=== PATIENT | female | born 1930 ===

== ENCOUNTER 2020-09-09 04:36 | Inpatient (IN) | payer MEDICARE ==
[2020-09-09] MEDS ORDERED: MELATONIN 5 MG TAB PO PRN (05:12)
[2020-09-09] MEDS: traZODone 50 MG TAB PO SCH (21:19)
[2020-09-09 23:42] LABS: Eosinophils # (Auto) 0.3 K/mm3 (0.0-0.4); Eosinophils % (Auto) 9.3 % (0.0-4.3); Hemoglobin 11.6 gm/dl (10.1-14.3); Lymphocytes # (Auto) 1.3 K/mm3 (1.2-5.4); Lymphocytes % (Auto) 38.5 % (13.4-35.0); Mean Corpuscular HGB Conc 33 % (30-34); Mean Corpuscular Volume 84 fl (79-97); Monocytes # (Auto) 0.4 K/mm3 (0.0-0.8); Platelet Count 146 K/mm3 (140-440); Red Blood Count 4.16 M/mm3 (3.65-5.03); Red Cell Distribution Width 14.6 % (13.2-15.2)
[2020-09-10 05:04] LABS: Albumin 3.7 g/dL (3.9-5); Calcium 9.1 mg/dL (8.4-10.2); Chol/HDL Ratio 2.7 %
--- NOTE | 2020-09-10 09:36 | Consultation ---
History of Present Illness - Reason for Consult Consult date: 09/10/20 Reason for consult: Dementia with Behaviral Disturbance - History of Present Psychiatric Illness Per Admission Note: Friend brought pt to ED. Pt is depressed, pt live at home by herself, pt state she is going to walk into traffic. Anai Hernandez is an 89y/o female patient who was admitted for stating she would walk in traffic. During my interview with the patient, she is awake. She is calm and cooperative. The patient is pleasant. The patient states "I said something I shouldn't have said but I bet I know better now." When asking her why would she make a statement like that she says "I don't know. I guess at the time that's how I felt." When asking the patient was she suicidal, she states "not anymore." The patient denies homicidal thoughts. She also denies hallucinations of any kind. Mrs. Hernandez says she lives in [place] and states she's ready to go back with her family. She denies any illicit drug use, alcohol or nicotine. The patient denies any psychiatric history or being on any psych meds. Advised the patient that we needed to monitor her to make sure she would be safe upon discharge. PAST PSYCHIATRIC HISTORY: Diagnoses: Denies Suicide attempts or Self-harm behavior: Denies Prior psychiatric hospitalizations: Denies Substance Abuse history: Denies Previous psychiatric medications tried: Denies Outpatient treatment: Denies PAST MEDICAL HISTORY: None reported Family Psychiatric History: None reported or documented SOCIAL HISTORY Marital Status: Living Arrangements: "by myself" Employment Status: Retired Access to guns/weapons: Denies Education: high school History of Abuse: Denies Legal History: Denies REVIEW OF SYSTEMS Constitutional: Negative for weight loss ENT: Negative for stridor Respiratory: Negative for cough or hemoptysis All other systems reviewed and are negative MENTAL STATUS EXAMINATION General Appearance and Behavior: Age appropriate, good hygiene, not wearing appropriate clothes, good eye contact, calm and cooperative Cooperation: Participating, uncooperative at times Psychomotor Behavior: Psychomotor normal Mood: "okay" Affect and affective range: Congruent with stated mood Thought Process: goal oriented Speech: Normal tone and pace Thought Content Suicidal Ideation: Denies Homicidal Ideation: Denies Hallucinations: unclear Delusions: None elicited Impulse Control: Limited Insight and Judgment: limited insight and judgment Memory: Limited Attention: Divided attention impaired Orientation: A/o x 3 Assessment and Plan (1) Dementia with Behavioral Disturbance Current Visit: Yes Status: Acute Treatment Plan Patient admitted for inpatient psychiatric evaluation, medication adjustment and close monitoring The patient's behavior, mood, sleep and appetite will be closely monitored. Patient enrolled in individual and group therapeutic sessions and encouraged to attend. Patient provided with a safe and structured environment. Patient's physical health needs will be addressed by the Hospitalist. Hospitalist Consulted Labs including CBC, CMP, Lipid profile and Hemoglobin A1C levels ordered for baseline reference Social Assessment will be completed and the Manager Integration will work with patient and family to ensure a suitable and safe disposition Medication adjustment will be made as clinically indicated Start Zoloft 25mg po daily Trazodone 50mg po qhs Usual Wellness Scientologist/Preservation: - Start Trazodone 50 mg po QHS & 50 mg po QHS PRN between 10 PM & 2 AM for insomnia - Start Melatonin 5 mg po QHS to promote circadian rhythm - Start [place]-3 for brain health, reduce impulsivity, and as adjunctive treatment for mood disorder, continue upon discharge given overall benefits. - Start B1 prophylaxis with 200 mg po for 5 days The patient agreed on the treatment plan, understood the risk, benefit, alternative treatment, potential consequence of no treatment, and gave informed consent. Initial Certification I certify that the inpatient psychiatric services are required for treatment that could reasonably be expected to improve the patient's condition Estimated days: 5 Post hospital care: primary care provider, psychiatric provider Case staffed with Dr. Garvin. Medications and Allergies Allergies Allergy/AdvReac Type Severity Reaction Status Date / Time amoxicillin Allergy Unknown Verified 09/09/20 04:57 aspirin Allergy Unknown Verified 09/09/20 04:57 codeine Allergy Unknown Verified 09/09/20 04:57 Sulfa (Sulfonamide Allergy Unknown Verified 09/09/20 04:57 Antibiotics) Home Medications Medication Instructions Recorded Confirmed Last Taken Type Cholecalciferol (Vitamin D3) 1,000 unit PO QDAY 09/09/20 09/09/20 Unknown History [Vitamin D3 2,000 UNIT CAP] Multivitamin [Multiple Vitamins] 1 each PO DAILY 09/09/20 09/09/20 Unknown History [place]-3 Fatty Acids/Fish Oil [Cvs 1 each PO DAILY 09/09/20 09/09/20 Unknown History Fish Oil 1,200 mg Softgel] Simvastatin 10 mg PO HS 09/09/20 09/09/20 Unknown History traMADoL [Ultram] 50 mg PO Q6HR PRN 09/09/20 09/09/20 Unknown History Active Meds: Active Medications Melatonin (Melatonin 5 Mg Tab) 5 mg PO QHS PRN PRN Reason: Sleep Trazodone HCl (Trazodone 50 Mg Tab) 50 mg PO QHS [facility] Last Admin: 09/09/20 21:19 Dose: 50 mg Documented by: Mental Status Exam - Vital signs Last Vital Signs Temp 98.5 F 09/09/20 19:41 Pulse 78 09/09/20 19:41 Resp 18 09/09/20 19:41 BP 139/74 09/09/20 19:41 Pulse Ox 99 09/09/20 19:41 Results Result Diagrams: 09/09/20 22:35 09/09/20 22:35 Abnormal lab results 09/09/20 09/09/20 09/09/20 Range/Units 16:11 22:35 22:35 WBC 3.4 L (4.5-11.0) K/mm3 Lymph % (Auto) 38.5 H (13.4-35.0) % [place] % (Auto) 11.0 H (0.0-7.3) % Eos % (Auto) 9.3 H (0.0-4.3) % Seg Neutrophils # 1.4 L (1.8-7.7) K/mm3 POC Glucose 124 H (70-105) mg/dL Total Protein 6.2 L (6.3-8.2) g/dL Albumin 3.7 L (3.9-5) g/dL HDL Cholesterol 67 H (40-59) mg/dL All other labs normal.
[2020-09-10] MEDS ORDERED: traMADol 50 MG TAB PO PRN (09:46)
--- NOTE | 2020-09-10 09:50 | History and Physical Report ---
GP History & Physical - History of Present Illness Date of admission: 09/09/20 Date of Examination: 09/10/20 Reason for Admission: Danger to self History of Present Illness: Per Admission Note: Friend brought pt to ED. Pt is depressed, pt live at home by herself, pt state she is going to walk into traffic. Anai Rodriguez is an 89y/o female patient who was admitted for stating she would walk in traffic. During my interview with the patient, she is awake. She is calm and cooperative. The patient is pleasant. The patient states "I said something I shouldn't have said but I bet I know better now." When asking her why would she make a statement like that she says "I don't know. I guess at the time that's how I felt." When asking the patient was she suicidal, she states "not anymore." The patient denies homicidal thoughts. She also denies hallucinations of any kind. Mrs. Rodriguez says she lives in [place] and states she's ready to go back with her family. She denies any illicit drug use, alcohol or nicotine. The patient denies any psychiatric history or being on any psych meds. Advised the patient that we needed to monitor her to make sure she would be safe upon discharge. PAST PSYCHIATRIC HISTORY: Diagnoses: Denies Suicide attempts or Self-harm behavior: Denies Prior psychiatric hospitalizations: Denies Substance Abuse history: Denies Previous psychiatric medications tried: Denies Outpatient treatment: Denies PAST MEDICAL HISTORY: None reported Family Psychiatric History: None reported or documented SOCIAL HISTORY Marital Status: Living Arrangements: "by myself" Employment Status: Retired Access to guns/weapons: Denies Education: high school History of Abuse: Denies Legal History: Denies REVIEW OF SYSTEMS Constitutional: Negative for weight loss ENT: Negative for stridor Respiratory: Negative for cough or hemoptysis All other systems reviewed and are negative MENTAL STATUS EXAMINATION General Appearance and Behavior: Age appropriate, good hygiene, not wearing appropriate clothes, good eye contact, calm and cooperative Cooperation: Participating, uncooperative at times Psychomotor Behavior: Psychomotor normal Mood: "okay" Affect and affective range: Congruent with stated mood Thought Process: goal oriented Speech: Normal tone and pace Thought Content Suicidal Ideation: Denies Homicidal Ideation: Denies Hallucinations: unclear Delusions: None elicited Impulse Control: Limited Insight and Judgment: limited insight and judgment Memory: Limited Attention: Divided attention impaired Orientation: A/o x 3 Assessment and Plan (1) Dementia with Behavioral Disturbance Current Visit: Yes Status: Acute Treatment Plan Patient admitted for inpatient psychiatric evaluation, medication adjustment and close monitoring The patient's behavior, mood, sleep and appetite will be closely monitored. Patient enrolled in individual and group therapeutic sessions and encouraged to attend. Patient provided with a safe and structured environment. Patient's physical health needs will be addressed by the Hospitalist. Hospitalist Consulted Labs including CBC, CMP, Lipid profile and Hemoglobin A1C levels ordered for baseline reference Social Assessment will be completed and the Director Of Income Tax will work with patient and family to ensure a suitable and safe disposition Medication adjustment will be made as clinically indicated Start Zoloft 25mg po daily Trazodone 50mg po qhs Usual Wellness Anabaptist/Preservation: - Start Trazodone 50 mg po QHS & 50 mg po QHS PRN between 10 PM & 2 AM for insomnia - Start Melatonin 5 mg po QHS to promote circadian rhythm - Start [place]-3 for brain health, reduce impulsivity, and as adjunctive treatment for mood disorder, continue upon discharge given overall benefits. - Start B1 prophylaxis with 200 mg po for 5 days The patient agreed on the treatment plan, understood the risk, benefit, alternative treatment, potential consequence of no treatment, and gave informed consent. Initial Certification I certify that the inpatient psychiatric services are required for treatment that could reasonably be expected to improve the patient's condition Estimated days: 5 Post hospital care: primary care provider, psychiatric provider Case staffed with Dr. Garvin. Legal Status: Voluntary Reaction to Hospitalization: Accepting Medications and Allergies Allergies Allergy/AdvReac Type Severity Reaction Status Date / Time amoxicillin Allergy Unknown Verified 09/09/20 04:57 aspirin Allergy Unknown Verified 09/09/20 04:57 codeine Allergy Unknown Verified 09/09/20 04:57 Sulfa (Sulfonamide Allergy Unknown Verified 09/09/20 04:57 Antibiotics) Home Medications Medication Instructions Recorded Confirmed Last Taken Type Cholecalciferol (Vitamin D3) 1,000 unit PO QDAY 09/09/20 09/09/20 Unknown History [Vitamin D3 2,000 UNIT CAP] Multivitamin [Multiple Vitamins] 1 each PO DAILY 09/09/20 09/09/20 Unknown History [place]-3 Fatty Acids/Fish Oil [Cvs 1 each PO DAILY 09/09/20 09/09/20 Unknown Hi story Fish Oil 1,200 mg Softgel] Simvastatin 10 mg PO HS 09/09/20 09/09/20 Unknown History traMADoL [Ultram] 50 mg PO Q6HR PRN 09/09/20 09/09/20 Unknown History Active Meds: Active Medications Melatonin (Melatonin 5 Mg Tab) 5 mg PO QHS PRN PRN Reason: Sleep Miscellaneous Medication (Cholecalciferol (Vitamin D3) [Vitamin D3 2,000 Unit Cap]) 1,000 unit PO QDAY DLEFINO Miscellaneous Medication (Multivitamin [Multiple Vitamins]) 1 each PO DAILY DELFINO Miscellaneous Medication ([place]-3 Fatty Acids/Fish Oil [Cvs Fish Oil 1,200 Mg Softgel]) 1 each PO DAILY DELFINO Miscellaneous Medication (Simvastatin [Simvastatin]) 10 mg PO HS [facility] Sertraline HCl (Sertraline 25 Mg Tab) 25 mg PO QDAY [place]FINO Tramadol HCl (Tramadol 50 Mg Tab) 50 mg PO Q6HR PRN PRN Reason: PAIN Trazodone HCl (Trazodone 50 Mg Tab) 50 mg PO QHS [facility] Last Admin: 09/09/20 21:19 Dose: 50 mg Documented by: Results - Results Labs/Vitals: Laboratory Last Values WBC 3.4 K/mm3 (4.5-11.0) L 09/09/20 22:35 RBC 4.16 M/mm3 (3.65-5.03) 09/09/20 22:35 Hgb 11.6 gm/dl (10.1-14.3) 09/09/20 22:35 Hct 35.0 % (30.3-42.9) 09/09/20 22:35 MCV 84 fl (79-97) 09/09/20 22:35 MCH 28 pg (28-32) 09/09/20 22:35 MCHC 33 % (30-34) 09/09/20 22:35 RDW 14.6 % (13.2-15.2) 09/09/20 22:35 Plt Count 146 K/mm3 (140-440) 09/09/20 22:35 Lymph % (Auto) 38.5 % (13.4-35.0) H 09/09/20 22:35 [place] % (Auto) 11.0 % (0.0-7.3) H 09/09/20 22:35 Eos % (Auto) 9.3 % (0.0-4.3) H 09/09/20 22:35 Baso % (Auto) 1.0 % (0.0-1.8) 09/09/20 22:35 Lymph # (Auto) 1.3 K/mm3 (1.2-5.4) 09/09/20 22:35 [place] # (Auto) 0.4 K/mm3 (0.0-0.8) 09/09/20 22:35 Eos # (Auto) 0.3 K/mm3 (0.0-0.4) 09/09/20 22:35 Baso # (Auto) 0.0 K/mm3 (0.0-0.1) 09/09/20 22:35 Seg Neutrophils % 40.2 % (40.0-70.0) 09/09/20 22:35 Seg Neutrophils # 1.4 K/mm3 (1.8-7.7) L 09/09/20 22:35 Sodium 137 mmol/L (137-145) 09/09/20 22:35 Potassium 3.9 mmol/L (3.6-5.0) 09/09/20 22:35 Chloride 101.5 mmol/L (98-107) 09/09/20 22:35 Carbon Dioxide 25 mmol/L (22-30) 09/09/20 22:35 Anion Gap 14 mmol/L 09/09/20 22:35 BUN 17 mg/dL (7-17) 09/09/20 22:35 Creatinine 0.9 mg/dL (0.6-1.2) 09/09/20 22:35 Estimated GFR 59 ml/min 09/09/20 22:35 BUN/Creatinine Ratio 19 % 09/09/20 22:35 Glucose 81 mg/dL (65-100) 09/09/20 22:35 POC Glucose 124 mg/dL (70-105) H 09/09/20 16:11 Hemoglobin A1c 5.4 % (4-6) 09/09/20 22:35 Calcium 9.1 mg/dL (8.4-10.2) 09/09/20 22:35 Total Bilirubin 0.20 mg/dL (0.1-1.2) 09/09/20 22:35 AST 17 units/L (5-40) 09/09/20 22:35 ALT 8 units/L (7-56) 09/09/20 22:35 Alkaline Phosphatase 49 units/L (35-129) 09/09/20 22:35 Total Protein 6.2 g/dL (6.3-8.2) L 09/09/20 22:35 Albumin 3.7 g/dL (3.9-5) L 09/09/20 22:35 Albumin/Globulin Ratio 1.5 % 09/09/20 22:35 Triglycerides 41 mg/dL (2-149) 09/09/20 22:35 Cholesterol 181 mg/dL (50-199) 09/09/20 22:35 LDL Cholesterol Direct 106 mg/dL (50-130) 09/09/20 22:35 HDL Cholesterol 67 mg/dL (40-59) H 09/09/20 22:35 Cholesterol/HDL Ratio 2.70 % 09/09/20 22:35 TSH 3.530 mlU/mL (0.270-4.200) 09/09/20 22:35 Last Vital Signs Temp 98.5 F 09/09/20 19:41 Pulse 78 09/09/20 19:41 Resp 18 09/09/20 19:41 BP 139/74 09/09/20 19:41 Pulse Ox 99 09/09/20 19:41 Physical Examination - Constitutional Vitals: Vital Signs Temp Pulse Resp BP Pulse Ox 98.5 F 78 18 139/74 99 09/09/20 19:41 09/09/20 19:41 09/09/20 19:41 09/09/20 19:41 09/09/20 19:41 Temperature -Last 24 Hours Temperature 98.5 F Temperature 98.0 F Mental Status Exam - Vital signs Last Vital Signs Temp 98.5 F 09/09/20 19:41 Pulse 78 09/09/20 19:41 Resp 18 09/09/20 19:41 BP 139/74 09/09/20 19:41 Pulse Ox 99 09/09/20 19:41 Physician Certification - Certification Statement Physician Certification Statement: This is an acknowledgement statement that ANAI RODRIGUEZ is a 89 year old F who requires inpatient psychiatric admission for treatment which could reasonably be expected to improve the patient's condition for Estimated period of time patient will need to remain in the hospital: [ ] Plan for post-hospital care: [ ]
[2020-09-10] MEDS: MULTIVITAMINS,THER W-MINERALS TAB PO SCH (11:47)
[2020-09-10] MEDS: OMEGA-3 FATTY ACIDS/FISH OIL 1 GRAM CAP PO SCH (11:48)
[2020-09-10] MEDS: CHOLECALCIFEROL (VIT D3) 1000 UNIT (25 mcg) TAB PO SCH (11:48)
[2020-09-10] MEDS: SERTRALINE 25 MG TAB PO SCH (11:48)
--- NOTE | 2020-09-10 12:12 | Event Note ---
Date: 09/10/20 Spoke with the patient's niece, Angie. She says they've seen medication bottle of "zyprexa." She says but the patient hasn't told them about any psychiatric issues. She says they depend on her for this information. She says they are unable to find out who the doctor is who prescribed it. She says the information was not on the bottle to see and she is not sure why it was prescribed. She says her aunt lives alone in [place]. She says her aunt is very paranoid. She says she calls at 4 in the morning or whatever time saying someone is in her house or someone has changed the locks. She also says Mrs. Hernandez does have some depression and at times appear to have feelings of hopelessness. She says her aunt doesn't want people to feel she is incapable because she doesn't want to go into a [place] [facility] facility and likes being in her house. Discussed zoloft with Angie and starting the patient back on her zyprexa. She says her aunt may also be pocketing her medications. She says her aunt is very independent and has been for a long time.
--- NOTE | 2020-09-10 13:59 | Consultation ---
History of Present Illness - Reason for Consult Consult date: 09/10/20 Requesting physician: GABBY GOETZ - History of Present Illness mrs. Hernandez is an 89y/o female patient who was admitted for stating she would walk in traffic. During my interview with the patient, she is awake. She is calm and cooperative. The patient is pleasant. The patient states I should not have open my mouth and talk to neighbors. Patient was coloring on of notebook when I arrived. No new concerns. Patient did state that she was sad and why she was sad. Patient talked about the life with her and her being independent. This led to her crying because she said she missed her and did not want anybody to be dependent on her. Patient states sometimes she just wants to go to sleep and never wake up. She also denies hallucinations of any kind. She told me she was from [place] and her family wants to go back with them either to [place] or [place] patient denies any pain denies any fever chills. She denies any illicit drug use, alcohol or nicotine. The patient denies any psychiatric history or being on any psych meds. Advised the patient that we needed to monitor her to make sure she would be safe upon discharge. Past History Past Medical History: No medical history, hyperlipidemia Past Surgical History: No surgical history Social history: no significant social history, Family history: no significant family history Medications and Allergies Allergies Allergy/AdvReac Type Severity Reaction Status Date / Time amoxicillin Allergy Unknown Verified 09/09/20 04:57 aspirin Allergy Unknown Verified 09/09/20 04:57 codeine Allergy Unknown Verified 09/09/20 04:57 Sulfa (Sulfonamide Allergy Unknown Verified 09/09/20 04:57 Antibiotics) Home Medications Medication Instructions Recorded Confirmed Last Taken Type Cholecalciferol (Vitamin D3) 1,000 unit PO QDAY 09/09/20 09/09/20 Unknown History [Vitamin D3 2,000 UNIT CAP] Multivitamin [Multiple Vitamins] 1 each PO DAILY 09/09/20 09/09/20 Unknown History [place]-3 Fatty Acids/Fish Oil [Cvs 1 each PO DAILY 09/09/20 09/09/20 Unknown History Fish Oil 1,200 mg Softgel] Simvastatin 10 mg PO HS 09/09/20 09/09/20 Unknown History traMADoL [Ultram] 50 mg PO Q6HR PRN 09/09/20 09/09/20 Unknown History Active Meds: Active Medications Cholecalciferol (Cholecalciferol (Vit D3) 1000 Unit (25 Mcg) Tab) 1,000 unit PO QDAY ON LICENSE OF [facility] Last Admin: 09/10/20 11:48 Dose: 1,000 unit Documented by: Fish Oil ([place]-3 Fatty Acids/Fish Oil 1 Gram Cap) 1,000 mg PO DAILY ON LICENSE OF [facility] Last Admin: 09/10/20 11:48 Dose: 1,000 mg Documented by: Melatonin (Melatonin 5 Mg Tab) 5 mg PO QHS PRN PRN Reason: Sleep Multivitamins/Minerals (Multivitamins,Ther W-Minerals Tab) 1 each PO DAILY ON LICENSE OF [facility] Last Admin: 09/10/20 11:47 Dose: 1 each Documented by: Olanzapine (Olanzapine 2.5 Mg Tab) 2.5 mg PO QDAY ON LICENSE OF [facility] Pravastatin Sodium (Pravastatin 20 Mg Tab) 10 mg PO [facility] Sertraline HCl (Sertraline 25 Mg Tab) 25 mg PO QDAY ON LICENSE OF [facility] Last Admin: 09/10/20 11:48 Dose: 25 mg Documented by: Tramadol HCl (Tramadol 50 Mg Tab) 50 mg PO Q6HR PRN PRN Reason: PAIN Trazodone HCl (Trazodone 50 Mg Tab) 50 mg PO QHS ON LICENSE OF [facility] Last Admin: 09/09/20 21:19 Dose: 50 mg Documented by: Review of Systems Constitutional: no weight loss, no weight gain, no chills, no fatigue, no malaise, no daytime sleepiness Ears, nose, mouth and throat: no ear discharge, no nasal congestion, no hoarseness, no pain front of neck Breasts: no tender Cardiovascular: no rapid/irregular heart beat, no shortness of breath Respiratory: no cough with sputum Gastrointestinal: no vomiting, no change in bowel habits, no coffee ground emesis, no indigestion, no early satiety, no other Genitourinary Female: incomplete emptying, urge incontinence, no pelvic pain Menstruation: premenarcheal, menses variable Musculoskeletal: no neck pain, no shooting arm pain, no arm numbness/tingling, no low back pain, no muscle cramps, no fractures, no arthritis Neurological: no paralysis, no parathesias, no seizures, no aphasia, no change in speech Psychiatric: insomnia, change in appetite, depression, hopelessness, no anxiety, no memory loss, no change in sleep habits, no sleep disturbances, no hypersomnia, no change in libido, no suicidal ideation, no disorientation, no hallucinations, no paranoia, no anhedonia, no anxiety attacks, no difficulties concentrating, no sadness/tearfullness, no mood swings Endocrine: no heat intolerance, no proptosis, no thyroid mass Exam - Constitutional Vitals: Temp Pulse Resp BP Pulse Ox 98.3 F 78 16 138/75 98 09/10/20 09:39 09/10/20 09:39 09/10/20 09:39 09/10/20 09:39 09/10/20 09:39 General appearance: Present: no acute distress, well-nourished - EENT Eyes: Present: PERRL ENT: hearing intact, clear oral mucosa - Neck Neck: Present: supple, normal ROM - Respiratory Respiratory effort: normal Respiratory: bilateral: CTA - Cardiovascular Heart Sounds: Present: S1 & S2. Absent: rub, click - Extremities Extremities: pulses symmetrical, No edema Peripheral Pulses: within normal limits - Abdominal General gastrointestinal: Present: soft, non-tender, non-distended, normal bowel sounds Female genitourinary: Present: normal - Integumentary Integumentary: Present: clear, warm, dry - Musculoskeletal Musculoskeletal: gait normal, strength equal bilaterally - Psychiatric Psychiatric: appropriate mood/affect, intact judgment & insight - Neurologic Neurologic: CNII-XII intact, moves all extremities Results - Labs CBC & Chem 7: 09/09/20 22:35 09/09/20 22:35 Labs: Abnormal lab results 09/09/20 09/09/20 09/09/20 Range/Units 16:11 22:35 22:35 WBC 3.4 L (4.5-11.0) K/mm3 Lymph % (Auto) 38.5 H (13.4-35.0) % [place] % (Auto) 11.0 H (0.0-7.3) % Eos % (Auto) 9.3 H (0.0-4.3) % Seg Neutrophils # 1.4 L (1.8-7.7) K/mm3 POC Glucose 124 H (70-105) mg/dL Total Protein 6.2 L (6.3-8.2) g/dL Albumin 3.7 L (3.9-5) g/dL HDL Cholesterol 67 H (40-59) mg/dL Assessment and Plan - Patient Problems (1) Depression Current Visit: Yes Status: Acute Plan to address problem: Patient does have evidence of hopelessness. Major depression. No evidence of CVA or infection or anything that may lead to patient having depression. No evidence of hypo or hyperthyroidism. Patient also still having grief from and also isolation. Agree with current medical management. (2) Hyperlipidemia Current Visit: Yes Status: Acute Plan to address problem: Lipids are within normal limits with medical management. Continue present statin med.
[2020-09-10] MEDS: PRAVASTATIN 20 MG TAB PO SCH (21:21)
[2020-09-10] MEDS: traZODone 50 MG TAB PO SCH (21:21)
--- NOTE | 2020-09-11 09:24 | Progress Note ---
Subjective Date of service: 09/11/20 Principal diagnosis: Dementia with behavioral disturbance Subjective Comment: Per Nurse Note: pt spent the evening in activity room interacting with peer, alert and orientedx3, calm and cooperative, able to make needs known, fixed on going home, no behavioral issue, medication compliant, ate 50% of snack, slept all night, no distress noted, will continue to monitor for safety. The patient was seen today, she is delusional and thought someone had been in her room. She says "I didn't leave this place like this." She is confused. When informing the patient she was in the hospital, she did not remember. When asked about suicidal thoughts, the patient states, "if things get bad enough I will." She then says "so much has happened. But next time I'm feeling like that I will keep it to myself." REVIEW OF SYSTEMS Constitutional: Negative for weight loss ENT: Negative for stridor Respiratory: Negative for cough or hemoptysis All other systems reviewed and are negative MENTAL STATUS EXAMINATION General Appearance and Behavior: Age appropriate, good hygiene, not wearing appropriate clothes, good eye contact, calm and cooperative Cooperation: Participating, uncooperative at times Psychomotor Behavior: Psychomotor normal Mood: "okay" Affect and affective range: Congruent with stated mood Thought Process: goal oriented Speech: Normal tone and pace Thought Content Suicidal Ideation: Denies Homicidal Ideation: Denies Hallucinations: unclear Delusions: None elicited Impulse Control: Limited Insight and Judgment: limited insight and judgment Memory: Limited Attention: Divided attention impaired Orientation: A/o x 3 Assessment and Plan (1) Dementia with Behavioral Disturbance Current Visit: Yes Status: Acute Treatment Plan Patient admitted for inpatient psychiatric evaluation, medication adjustment and close monitoring The patient's behavior, mood, sleep and appetite will be closely monitored. Patient enrolled in individual and group therapeutic sessions and encouraged to attend. Patient provided with a safe and structured environment. Patient's physical health needs will be addressed by the Hospitalist. Hospitalist Consulted Labs including CBC, CMP, Lipid profile and Hemoglobin A1C levels ordered for baseline reference Social Assessment will be completed and the Supervisor Mixing will work with patient and family to ensure a suitable and safe disposition Medication adjustment will be made as clinically indicated Continue Zoloft 25mg po daily Zyprexa 2.5mg po daily Usual Wellness Mu-Ism/Preservation: - Start Trazodone 50 mg po QHS & 50 mg po QHS PRN between 10 PM & 2 AM for insomnia - Start Melatonin 5 mg po QHS to promote circadian rhythm - Start [place]-3 for brain health, reduce impulsivity, and as adjunctive treatment for mood disorder, continue upon discharge given overall benefits. - Start B1 prophylaxis with 200 mg po for 5 days The patient agreed on the treatment plan, understood the risk, benefit, alternative treatment, potential consequence of no treatment, and gave informed consent. Post hospital care: primary care provider, psychiatric provider Case staffed with Dr. Garvin. Medications and Allergies Allergies Allergy/AdvReac Type Severity Reaction Status Date / Time amoxicillin Allergy Unknown Verified 09/09/20 04:57 aspirin Allergy Unknown Verified 09/09/20 04:57 codeine Allergy Unknown Verified 09/09/20 04:57 Sulfa (Sulfonamide Allergy Unknown Verified 09/09/20 04:57 Antibiotics) Home Medications Medication Instructions Recorded Confirmed Last Taken Type Cholecalciferol (Vitamin D3) 1,000 unit PO QDAY 09/09/20 09/09/20 Unknown History [Vitamin D3 2,000 UNIT CAP] Multivitamin [Multiple Vitamins] 1 each PO DAILY 09/09/20 09/09/20 Unknown History [place]-3 Fatty Acids/Fish Oil [Cvs 1 each PO DAILY 09/09/20 09/09/20 Unknown History Fish Oil 1,200 mg Softgel] Simvastatin 10 mg PO HS 09/09/20 09/09/20 Unknown History traMADoL [Ultram] 50 mg PO Q6HR PRN 09/09/20 09/09/20 Unknown History Active Meds: Active Medications Cholecalciferol (Cholecalciferol (Vit D3) 1000 Unit (25 Mcg) Tab) 1,000 unit PO QDAY [facility] Last Admin: 09/10/20 11:48 Dose: 1,000 unit Documented by: Fish Oil ([place]-3 Fatty Acids/Fish Oil 1 Gram Cap) 1,000 mg PO DAILY [facility] Last Admin: 09/10/20 11:48 Dose: 1,000 mg Documented by: Melatonin (Melatonin 5 Mg Tab) 5 mg PO QHS PRN PRN Reason: Sleep Multivitamins/Minerals (Multivitamins,Ther W-Minerals Tab) 1 each PO DAILY [facility] Last Admin: 09/10/20 11:47 Dose: 1 each Documented by: Olanzapine (Olanzapine 2.5 Mg Tab) 2.5 mg PO QDAY [facility] Last Admin: 09/10/20 14:28 Dose: 2.5 mg Documented by: Pravastatin Sodium (Pravastatin 20 Mg Tab) 10 mg PO HS [facility] Last Admin: 09/10/20 21:21 Dose: 10 mg Documented by: Sertraline HCl (Sertraline 25 Mg Tab) 25 mg PO QDAY [facility] Last Admin: 09/10/20 11:48 Dose: 25 mg Documented by: Tramadol HCl (Tramadol 50 Mg Tab) 50 mg PO Q6HR PRN PRN Reason: PAIN Trazodone HCl (Trazodone 50 Mg Tab) 50 mg PO QHS [facility] Last Admin: 09/10/20 21:21 Dose: 50 mg Documented by: Results - Results Labs/Vitals: Laboratory Last Values WBC 3.4 K/mm3 (4.5-11.0) L 09/09/20 22:35 RBC 4.16 M/mm3 (3.65-5.03) 09/09/20 22:35 Hgb 11.6 gm/dl (10.1-14.3) 09/09/20 22:35 Hct 35.0 % (30.3-42.9) 09/09/20 22:35 MCV 84 fl (79-97) 09/09/20 22:35 MCH 28 pg (28-32) 09/09/20 22:35 MCHC 33 % (30-34) 09/09/20 22:35 RDW 14.6 % (13.2-15.2) 09/09/20 22:35 Plt Count 146 K/mm3 (140-440) 09/09/20 22:35 Lymph % (Auto) 38.5 % (13.4-35.0) H 09/09/20 22:35 [place] % (Auto) 11.0 % (0.0-7.3) H 09/09/20 22:35 Eos % (Auto) 9.3 % (0.0-4.3) H 09/09/20 22:35 Baso % (Auto) 1.0 % (0.0-1.8) 09/09/20 22:35 Lymph # (Auto) 1.3 K/mm3 (1.2-5.4) 09/09/20 22:35 [place] # (Auto) 0.4 K/mm3 (0.0-0.8) 09/09/20 22:35 Eos # (Auto) 0.3 K/mm3 (0.0-0.4) 09/09/20 22:35 Baso # (Auto) 0.0 K/mm3 (0.0-0.1) 09/09/20 22:35 Seg Neutrophils % 40.2 % (40.0-70.0) 09/09/20 22:35 Seg Neutrophils # 1.4 K/mm3 (1.8-7.7) L 09/09/20 22:35 Sodium 137 mmol/L (137-145) 09/09/20 22:35 Potassium 3.9 mmol/L (3.6-5.0) 09/09/20 22:35 Chloride 101.5 mmol/L (98-107) 09/09/20 22:35 Carbon Dioxide 25 mmol/L (22-30) 09/09/20 22:35 Anion Gap 14 mmol/L 09/09/20 22:35 BUN 17 mg/dL (7-17) 09/09/20 22:35 Creatinine 0.9 mg/dL (0.6-1.2) 09/09/20 22:35 Estimated GFR 59 ml/min 09/09/20 22:35 BUN/Creatinine Ratio 19 % 09/09/20 22:35 Glucose 81 mg/dL (65-100) 09/09/20 22:35 POC Glucose 124 mg/dL (70-105) H 09/09/20 16:11 Hemoglobin A1c 5.4 % (4-6) 09/09/20 22:35 Calcium 9.1 mg/dL (8.4-10.2) 09/09/20 22:35 Total Bilirubin 0.20 mg/dL (0.1-1.2) 09/09/20 22:35 AST 17 units/L (5-40) 09/09/20 22:35 ALT 8 units/L (7-56) 09/09/20 22:35 Alkaline Phosphatase 49 units/L (35-129) 09/09/20 22:35 Total Protein 6.2 g/dL (6.3-8.2) L 09/09/20 22:35 Albumin 3.7 g/dL (3.9-5) L 09/09/20 22:35 Albumin/Globulin Ratio 1.5 % 09/09/20 22:35 Triglycerides 41 mg/dL (2-149) 09/09/20 22:35 Cholesterol 181 mg/dL (50-199) 09/09/20 22:35 LDL Cholesterol Direct 106 mg/dL (50-130) 09/09/20 22:35 HDL Cholesterol 67 mg/dL (40-59) H 09/09/20 22:35 Cholesterol/HDL Ratio 2.70 % 09/09/20 22:35 TSH 3.530 mlU/mL (0.270-4.200) 09/09/20 22:35 Last Vital Signs Temp 98.3 F 09/11/20 09:16 Pulse 67 09/11/20 09:16 Resp 18 09/11/20 09:16 BP 146/80 09/11/20 09:16 Pulse Ox 99 09/11/20 09:16
[2020-09-11] MEDS: MULTIVITAMINS,THER W-MINERALS TAB PO SCH (09:48)
[2020-09-11] MEDS: OMEGA-3 FATTY ACIDS/FISH OIL 1 GRAM CAP PO SCH (09:48)
[2020-09-11] MEDS: SERTRALINE 25 MG TAB PO SCH (09:49)
[2020-09-11] MEDS: CHOLECALCIFEROL (VIT D3) 1000 UNIT (25 mcg) TAB PO SCH (09:50)
[2020-09-11] MEDS: traZODone 50 MG TAB PO SCH (21:05)
[2020-09-11] MEDS: PRAVASTATIN 20 MG TAB PO SCH (21:05)
--- NOTE | 2020-09-12 08:33 | Progress Note ---
Subjective Date of service: 09/12/20 Principal diagnosis: Dementia with behavioral disturbance Subjective Comment: Per Nurse Note: Last evening the patient presents as sad and depressed. She was tearful throughout the evening. She did sit with her peers and carry on conversation with them. She is focused on discharging and going back to her home in [place], [place]. She is angry with her friend who brought her to the hospital and doesn't think she needs any medication or help from anyone. Her appetite is good and she is medication compliant. She denies si/hi/ah/vh. When discussing suicidal thoughts she continues to state she should have kept her feelings to herself. The patient was seen today, she is tearful. She says she's "not doing well." The patient says "I was just talking when I said what I said." She says "I have a friend who is a nurse. I told her I was going to run in traffic and get hit." The patient says "she tricked me like I would be gone for only two days." She denies SI/HI. She says "I just say stuff like that." She denies hallucinations of any kind. REVIEW OF SYSTEMS Constitutional: Negative for weight loss ENT: Negative for stridor Respiratory: Negative for cough or hemoptysis All other systems reviewed and are negative MENTAL STATUS EXAMINATION General Appearance and Behavior: Age appropriate, good hygiene, not wearing appropriate clothes, good eye contact, calm and cooperative Cooperation: Participating, uncooperative at times Psychomotor Behavior: Psychomotor normal Mood: "not good" Affect and affective range: Congruent with stated mood Thought Process: goal oriented Speech: Normal tone and pace Thought Content Suicidal Ideation: Denies Homicidal Ideation: Denies Hallucinations: unclear Delusions: None elicited Impulse Control: Limited Insight and Judgment: limited insight and judgment Memory: Limited Attention: Divided attention impaired Orientation: A/o x 3 Assessment and Plan (1) Dementia with Behavioral Disturbance Current Visit: Yes Status: Acute Treatment Plan Patient admitted for inpatient psychiatric evaluation, medication adjustment and close monitoring The patient's behavior, mood, sleep and appetite will be closely monitored. Patient enrolled in individual and group therapeutic sessions and encouraged to attend. Patient provided with a safe and structured environment. Patient's physical health needs will be addressed by the Hospitalist. Hospitalist Consulted Labs including CBC, CMP, Lipid profile and Hemoglobin A1C levels ordered for ba seline reference Social Assessment will be completed and the Spring Inspector will work with patient and family to ensure a suitable and safe disposition Medication adjustment will be made as clinically indicated Increase Zoloft 50mg po daily Continue Zyprexa 2.5mg po daily Usual Wellness Restorationist/Preservation: - Start Trazodone 50 mg po QHS & 50 mg po QHS PRN between 10 PM & 2 AM for insomnia - Start Melatonin 5 mg po QHS to promote circadian rhythm - Start [place]-3 for brain health, reduce impulsivity, and as adjunctive treatment for mood disorder, continue upon discharge given overall benefits. - Start B1 prophylaxis with 200 mg po for 5 days The patient agreed on the treatment plan, understood the risk, benefit, alternative treatment, potential consequence of no treatment, and gave informed consent. Post hospital care: primary care provider, psychiatric provider Case staffed with Dr. Garvin. Medications and Allergies Allergies Allergy/AdvReac Type Severity Reaction Status Date / Time amoxicillin Allergy Unknown Verified 09/09/20 04:57 aspirin Allergy Unknown Verified 09/09/20 04:57 codeine Allergy Unknown Verified 09/09/20 04:57 Sulfa (Sulfonamide Allergy Unknown Verified 09/09/20 04:57 Antibiotics) Home Medications Medication Instructions Recorded Confirmed Last Taken Type Cholecalciferol (Vitamin D3) 1,000 unit PO QDAY 09/09/20 09/09/20 Unknown History [Vitamin D3 2,000 UNIT CAP] Multivitamin [Multiple Vitamins] 1 each PO DAILY 09/09/20 09/09/20 Unknown History [place]-3 Fatty Acids/Fish Oil [Cvs 1 each PO DAILY 09/09/20 09/09/20 Unknown History Fish Oil 1,200 mg Softgel] Simvastatin 10 mg PO HS 09/09/20 09/09/20 Unknown History traMADoL [Ultram] 50 mg PO Q6HR PRN 09/09/20 09/09/20 Unknown History Active Meds: Active Medications Cholecalciferol (Cholecalciferol (Vit D3) 1000 Unit (25 Mcg) Tab) 1,000 unit PO QDAY [facility] Last Admin: 09/11/20 09:50 Dose: 1,000 unit Documented by: Fish Oil ([place]-3 Fatty Acids/Fish Oil 1 Gram Cap) 1,000 mg PO DAILY [facility] Last Admin: 09/11/20 09:48 Dose: 1,000 mg Documented by: Melatonin (Melatonin 5 Mg Tab) 5 mg PO QHS PRN PRN Reason: Sleep Multivitamins/Minerals (Multivitamins,Ther W-Minerals Tab) 1 each PO DAILY [facility] Last Admin: 09/11/20 09:48 Dose: 1 each Documented by: Olanzapine (Olanzapine 2.5 Mg Tab) 2.5 mg PO QDAY [facility] Last Admin: 09/11/20 09:48 Dose: 2.5 mg Documented by: Pravastatin Sodium (Pravastatin 20 Mg Tab) 10 mg PO HS [facility] Last Admin: 09/11/20 21:05 Dose: 10 mg Documented by: Sertraline HCl (Sertraline 25 Mg Tab) 25 mg PO QDAY [facility] Last Admin: 09/11/20 09:49 Dose: 25 mg Documented by: Tramadol HCl (Tramadol 50 Mg Tab) 50 mg PO Q6HR PRN PRN Reason: PAIN Trazodone HCl (Trazodone 50 Mg Tab) 50 mg PO QHS [facility] Last Admin: 09/11/20 21:05 Dose: 50 mg Documented by: Results - Results Labs/Vitals: Laboratory Last Values WBC 3.4 K/mm3 (4.5-11.0) L 09/09/20 22:35 RBC 4.16 M/mm3 (3.65-5.03) 09/09/20 22:35 Hgb 11.6 gm/dl (10.1-14.3) 09/09/20 22:35 Hct 35.0 % (30.3-42.9) 09/09/20 22:35 MCV 84 fl (79-97) 09/09/20 22:35 MCH 28 pg (28-32) 09/09/20 22:35 MCHC 33 % (30-34) 09/09/20 22:35 RDW 14.6 % (13.2-15.2) 09/09/20 22:35 Plt Count 146 K/mm3 (140-440) 09/09/20 22:35 Lymph % (Auto) 38.5 % (13.4-35.0) H 09/09/20 22:35 [place] % (Auto) 11.0 % (0.0-7.3) H 09/09/20 22:35 Eos % (Auto) 9.3 % (0.0-4.3) H 09/09/20 22:35 Baso % (Auto) 1.0 % (0.0-1.8) 09/09/20 22:35 Lymph # (Auto) 1.3 K/mm3 (1.2-5.4) 09/09/20 22:35 [place] # (Auto) 0.4 K/mm3 (0.0-0.8) 09/09/20 22:35 Eos # (Auto) 0.3 K/mm3 (0.0-0.4) 09/09/20 22:35 Baso # (Auto) 0.0 K/mm3 (0.0-0.1) 09/09/20 22:35 Seg Neutrophils % 40.2 % (40.0-70.0) 09/09/20 22:35 Seg Neutrophils # 1.4 K/mm3 (1.8-7.7) L 09/09/20 22:35 Sodium 137 mmol/L (137-145) 09/09/20 22:35 Potassium 3.9 mmol/L (3.6-5.0) 09/09/20 22:35 Chloride 101.5 mmol/L (98-107) 09/09/20 22:35 Carbon Dioxide 25 mmol/L (22-30) 09/09/20 22:35 Anion Gap 14 mmol/L 09/09/20 22:35 BUN 17 mg/dL (7-17) 09/09/20 22:35 Creatinine 0.9 mg/dL (0.6-1.2) 09/09/20 22:35 Estimated GFR 59 ml/min 09/09/20 22:35 BUN/Creatinine Ratio 19 % 09/09/20 22:35 Glucose 81 mg/dL (65-100) 09/09/20 22:35 POC Glucose 124 mg/dL (70-105) H 09/09/20 16:11 Hemoglobin A1c 5.4 % (4-6) 09/09/20 22:35 Calcium 9.1 mg/dL (8.4-10.2) 09/09/20 22:35 Total Bilirubin 0.20 mg/dL (0.1-1.2) 09/09/20 22:35 AST 17 units/L (5-40) 09/09/20 22:35 ALT 8 units/L (7-56) 09/09/20 22:35 Alkaline Phosphatase 49 units/L (35-129) 09/09/20 22:35 Total Protein 6.2 g/dL (6.3-8.2) L 09/09/20 22:35 Albumin 3.7 g/dL (3.9-5) L 09/09/20 22:35 Albumin/Globulin Ratio 1.5 % 09/09/20 22:35 Triglycerides 41 mg/dL (2-149) 09/09/20 22:35 Cholesterol 181 mg/dL (50-199) 09/09/20 22:35 LDL Cholesterol Direct 106 mg/dL (50-130) 09/09/20 22:35 HDL Cholesterol 67 mg/dL (40-59) H 09/09/20 22:35 Cholesterol/HDL Ratio 2.70 % 09/09/20 22:35 TSH 3.530 mlU/mL (0.270-4.200) 09/09/20 22:35 Last Vital Signs Temp 98.0 F 09/11/20 22:00 Pulse 79 09/11/20 22:00 Resp 18 09/11/20 22:00 BP 165/83 09/11/20 22:00 Pulse Ox 99 09/11/20 22:00
[2020-09-12] MEDS: SERTRALINE 50 MG TAB PO SCH (09:10)
[2020-09-12] MEDS: CHOLECALCIFEROL (VIT D3) 1000 UNIT (25 mcg) TAB PO SCH (09:10)
[2020-09-12] MEDS: MULTIVITAMINS,THER W-MINERALS TAB PO SCH (09:10)
[2020-09-12] MEDS: OMEGA-3 FATTY ACIDS/FISH OIL 1 GRAM CAP PO SCH (09:10)
[2020-09-12] MEDS: PRAVASTATIN 20 MG TAB PO SCH (22:15)
[2020-09-12] MEDS: traZODone 50 MG TAB PO SCH (22:16)
--- NOTE | 2020-09-13 09:56 | Progress Note ---
Subjective Date of service: 09/13/20 Principal diagnosis: Dementia with behavioral disturbance Subjective Comment: Per Nurse Note: Last evening the patient spent interacting with her peers. She remains tearful and she expressed some anger that she was still here in the hospital. She denies si/hi/ah/vh. Her appetite is fair and she is medication compliant. She states she does not take pills and she is independent at home. Overnight she woke a few times. She had an angry affect during the evening and continues with it this morning. The patient turned her light on for help this morning. She wanted to shower. The tech turned her shower on and when the patient discovered we do not have shower caps she became upset telling the tech to turn the shower off. She sat on her bed and began to cry. When asked what she was feeling she stated she did not tell the tech to turn the shower off. The s hower was turned on again and the patient got dressed without getting wet. Will continue to monitor patient for safety. The patient was seen today, she is in a better mood today. She is asking when w as she going to go home. She denies SI/HI. She states "I don't want to hurt myself. My friend got me in this situation." She denies hallucinations of any kind. REVIEW OF SYSTEMS Constitutional: Negative for weight loss ENT: Negative for stridor Respiratory: Negative for cough or hemoptysis All other systems reviewed and are negative MENTAL STATUS EXAMINATION General Appearance and Behavior: Age appropriate, good hygiene, not wearing appropriate clothes, good eye contact, calm and cooperative Cooperation: Participating, uncooperative at times Psychomotor Behavior: Psychomotor normal Mood: "okay" Affect and affective range: Congruent with stated mood Thought Process: goal oriented Speech: Normal tone and pace Thought Content Suicidal Ideation: Denies Homicidal Ideation: Denies Hallucinations: unclear Delusions: None elicited Impulse Control: Limited Insight and Judgment: limited insight and judgment Memory: Limited Attention: Divided attention impaired Orientation: A/o x 3 Assessment and Plan (1) Dementia with Behavioral Disturbance Current Visit: Yes Status: Acute Treatment Plan Patient admitted for inpatient psychiatric evaluation, medication adjustment and close monitoring The patient's behavior, mood, sleep and appetite will be closely monitored. Patient enrolled in individual and group therapeutic sessions and encouraged to attend. Patient provided with a safe and structured environment. Patient's physical health needs will be addressed by the Hospitalist. Hospitalist Consulted Labs including CBC, CMP, Lipid profile and Hemoglobin A1C levels ordered for baseline reference Social Assessment will be completed and the Polishing Machine Operator Helper will work with patient and family to ensure a suitable and safe disposition Medication adjustment will be made as clinically indicated Continue Zoloft 50mg po daily Continue Zyprexa 2.5mg po daily No changes todayeeeeeeeeeeeeeeeeeeeeeeeeeeeeeeeeeeeeeeeeeeeeeeeeeeeeeeeeeeeeeeeeeeeeeeeeeee eeeeeeeeeeeeeeeeeeeeeeeeeeeeeeeeeeee eeeeeeeeeeeeeeeeeeeeeeeeeeeeeeeeeeeeeeeeeeeeeeeeeeeeeeeeeeeeeeeeeeeeeeeeeeeeeeee eeeeeeeeeeeeeeeeeeeeeeeeeeeeeeeeeeeeeeeeeeeeeeeeeeeeeeeeeeeeeeeeeeeeeeeeeeeeeeee eeeeeeeeeeeeeeeeeeeeeeeeeeeeeeeeeeeeeeee eeeeeeeeeeeeeeeeeeeeeeeeeeeeeeeeeeeeeeeeeeeeeeeeeeeeeeeeeeeeeeeeeeeeeeeeeeeeeeee eeeeeeeeeeeeeeeeeeeeeeeeee Usual Wellness Episcopalian/Preservation: - Start Trazodone 50 mg po QHS & 50 mg po QHS PRN between 10 PM & 2 AM for insomnia - Start Melatonin 5 mg po QHS to promote circadian rhythm - Start [place]-3 for brain health, reduce impulsivity, and as adjunctive treatment for mood disorder, continue upon discharge given overall benefits. - Start B1 prophylaxis with 200 mg po for 5 days The patient agreed on the treatment plan, understood the risk, benefit, alternative treatment, potential consequence of no treatment, and gave informed consent. Post hospital care: primary care provider, psychiatric provider Case staffed with Dr. Garvin. Medications and Allergies Allergies Allergy/AdvReac Type Severity Reaction Status Date / Time amoxicillin Allergy Unknown Verified 09/09/20 04:57 aspirin Allergy Unknown Verified 09/09/20 04:57 codeine Allergy Unknown Verified 09/09/20 04:57 Sulfa (Sulfonamide Allergy Unknown Verified 09/09/20 04:57 Antibiotics) Home Medications Medication Instructions Recorded Confirmed Last Taken Type Cholecalciferol (Vitamin D3) 1,000 unit PO QDAY 09/09/20 09/09/20 Unknown History [Vitamin D3 2,000 UNIT CAP] Multivitamin [Multiple Vitamins] 1 each PO DAILY 09/09/20 09/09/20 Unknown History [place]-3 Fatty Acids/Fish Oil [Cvs 1 each PO DAILY 09/09/20 09/09/20 Unknown History Fish Oil 1,200 mg Softgel] Simvastatin 10 mg PO HS 09/09/20 09/09/20 Unknown History traMADoL [Ultram] 50 mg PO Q6HR PRN 09/09/20 09/09/20 Unknown History Active Meds: Active Medications Cholecalciferol (Cholecalciferol (Vit D3) 1000 Unit (25 Mcg) Tab) 1,000 unit PO QDAY [facility] Last Admin: 09/12/20 09:10 Dose: 1,000 unit Documented by: Fish Oil ([place]-3 Fatty Acids/Fish Oil 1 Gram Cap) 1,000 mg PO DAILY [facility] Last Admin: 09/12/20 09:10 Dose: 1,000 mg Documented by: Melatonin (Melatonin 5 Mg Tab) 5 mg PO QHS PRN PRN Reason: Sleep Multivitamins/Minerals (Multivitamins,Ther W-Minerals Tab) 1 each PO DAILY [facility] Last Admin: 09/12/20 09:10 Dose: 1 each Documented by: Olanzapine (Olanzapine 2.5 Mg Tab) 2.5 mg PO QDAY [facility] Last Admin: 09/12/20 09:10 Dose: 2.5 mg Documented by: Pravastatin Sodium (Pravastatin 20 Mg Tab) 10 mg PO [facility] Last Admin: 09/12/20 22:15 Dose: 10 mg Documented by: Sertraline HCl (Sertraline 50 Mg Tab) 50 mg PO QDAY [facility] Last Admin: 09/12/20 09:10 Dose: 50 mg Documented by: Tramadol HCl (Tramadol 50 Mg Tab) 50 mg PO Q6HR PRN PRN Reason: PAIN Trazodone HCl (Trazodone 50 Mg Tab) 50 mg PO QHS [facility] Last Admin: 09/12/20 22:16 Dose: 50 mg Documented by: Results - Results Labs/Vitals: Laboratory Last Values WBC 3.4 K/mm3 (4.5-11.0) L 09/09/20 22:35 RBC 4.16 M/mm3 (3.65-5.03) 09/09/20 22:35 Hgb 11.6 gm/dl (10.1-14.3) 09/09/20 22:35 Hct 35.0 % (30.3-42.9) 09/09/20 22:35 MCV 84 fl (79-97) 09/09/20 22:35 MCH 28 pg (28-32) 09/09/20 22:35 MCHC 33 % (30-34) 09/09/20 22:35 RDW 14.6 % (13.2-15.2) 09/09/20 22:35 Plt Count 146 K/mm3 (140-440) 09/09/20 22:35 Lymph % (Auto) 38.5 % (13.4-35.0) H 09/09/20 22:35 [place] % (Auto) 11.0 % (0.0-7.3) H 09/09/20 22:35 Eos % (Auto) 9.3 % (0.0-4.3) H 09/09/20 22:35 Baso % (Auto) 1.0 % (0.0-1.8) 09/09/20 22:35 Lymph # (Auto) 1.3 K/mm3 (1.2-5.4) 09/09/20 22:35 [place] # (Auto) 0.4 K/mm3 (0.0-0.8) 09/09/20 22:35 Eos # (Auto) 0.3 K/mm3 (0.0-0.4) 09/09/20 22:35 Baso # (Auto) 0.0 K/mm3 (0.0-0.1) 09/09/20 22:35 Seg Neutrophils % 40.2 % (40.0-70.0) 09/09/20 22: Seg Neutrophils # 1.4 K/mm3 (1.8-7.7) L 09/09/20 22:35 Sodium 137 mmol/L (137-145) 09/09/20 22:35 Potassium 3.9 mmol/L (3.6-5.0) 09/09/20 22:35 Chloride 101.5 mmol/L (98-107) 09/09/20 22:35 Carbon Dioxide 25 mmol/L (22-30) 09/09/20 22:35 Anion Gap 14 mmol/L 09/09/20 22:35 BUN 17 mg/dL (7-17) 09/09/20 22:35 Creatinine 0.9 mg/dL (0.6-1.2) 09/09/20 22:35 Estimated GFR 59 ml/min 09/09/20 22:35 BUN/Creatinine Ratio 19 % 09/09/20 22:35 Glucose 81 mg/dL (65-100) 09/09/20 22:35 POC Glucose 124 mg/dL (70-105) H 09/09/20 16:11 Hemoglobin A1c 5.4 % (4-6) 09/09/20 22:35 Calcium 9.1 mg/dL (8.4-10.2) 09/09/20 22:35 Total Bilirubin 0.20 mg/dL (0.1-1.2) 09/09/20 22:35 AST 17 units/L (5-40) 09/09/20 22:35 ALT 8 units/L (7-56) 09/09/20 22:35 Alkaline Phosphatase 49 units/L (35-129) 09/09/20 22:35 Total Protein 6.2 g/dL (6.3-8.2) L 09/09/20 22:35 Albumin 3.7 g/dL (3.9-5) L 09/09/20 22:35 Albumin/Globulin Ratio 1.5 % 09/09/20 22:35 Triglycerides 41 mg/dL (2-149) 09/09/20 22:35 Cholesterol 181 mg/dL (50-199) 09/09/20 22:35 LDL Cholesterol Direct 106 mg/dL (50-130) 09/09/20 22:35 HDL Cholesterol 67 mg/dL (40-59) H 09/09/20 22:35 Cholesterol/HDL Ratio 2.70 % 09/09/20 22:35 TSH 3.530 mlU/mL (0.270-4.200) 09/09/20 22:35 Last Vital Signs Temp 98.0 F 09/13/20 07:42 Pulse 69 09/13/20 07:42 Resp 18 09/13/20 07:42 BP 154/61 09/13/20 07:42 Pulse Ox 98 09/13/20 07:42
[2020-09-13] MEDS: CHOLECALCIFEROL (VIT D3) 1000 UNIT (25 mcg) TAB PO SCH (10:16)
[2020-09-13] MEDS: MULTIVITAMINS,THER W-MINERALS TAB PO SCH (10:17)
[2020-09-13] MEDS: SERTRALINE 50 MG TAB PO SCH ×2 (10:18→10:20)
[2020-09-13] MEDS: OMEGA-3 FATTY ACIDS/FISH OIL 1 GRAM CAP PO SCH ×2 (11:56→11:59)
--- NOTE | 2020-09-13 14:53 | Progress Note ---
Assessment and Plan - Patient Problems (1) Vascular dementia with behavioral disturbance Current Visit: Yes Status: Acute Plan to address problem: Verbal prompting, verbal redirection, benzodiazepine therapy as clinically indicated, supportive care. (2) Cerebral atherosclerosis Current Visit: Yes Status: Acute Plan to address problem: Antiplatelet therapy as clinically indicated, risk factor reduction. (3) Depression Current Visit: Yes Status: Acute Plan to address problem: Continue medical management, (4) Hyperlipidemia Current Visit: Yes Status: Acute Qualifiers: Hyperlipidemia type: mixed hyperlipidemia Qualified Code(s): E78.2 - Mixed hyperlipidemia Plan to address problem: Low-cholesterol diet, statin therapy as clinically indicated. History Interval history: 89 YO Female with Vascular Dementia with Behavioral Disturbance, Cerebral Atherosclerosis, HLD, Depression admitted to [facility] for psychiatric stabilization. Patient seen and evaluated in the recreation room. Patient resting comfortably. No reported nursing events. Patient denies pain. Hospitalist Physical - Constitutional Vitals: Temp Pulse Resp BP Pulse Ox 98.0 F 69 18 154/61 98 09/13/20 07:42 09/13/20 07:42 09/13/20 07:42 09/13/20 07:42 09/13/20 07:42 General appearance: Present: no acute distress, well-nourished - EENT Eyes: Present: PERRL ENT: hearing decreased - Neck Neck: Present: supple - Respiratory Respiratory effort: normal Respiratory: bilateral: CTA - Cardiovascular Rhythm: regular - Extremities Extremities: no ischemia Peripheral Pulses: within normal limits - Abdominal General gastrointestinal: soft, non-tender, non-distended - Integumentary Integumentary: Present: clear, dry - Psychiatric Psychiatric: cooperative - Neurologic Neurologic: CNII-XII intact Results - Labs CBC & Chem 7: 09/09/20 22:35 09/09/20 22:35 Labs: Laboratory Last Values WBC 3.4 K/mm3 (4.5-11.0) L 09/09/20 22:35 RBC 4.16 M/mm3 (3.65-5.03) 09/09/20 22:35 Hgb 11.6 gm/dl (10.1-14.3) 09/09/20 22:35 Hct 35.0 % (30.3-42.9) 09/09/20 22:35 MCV 84 fl (79-97) 09/09/20 22:35 MCH 28 pg (28-32) 09/09/20 22:35 MCHC 33 % (30-34) 09/09/20 22:35 RDW 14.6 % (13.2-15.2) 09/09/20 22:35 Plt Count 146 K/mm3 (140-440) 09/09/20 22:35 Lymph % (Auto) 38.5 % (13.4-35.0) H 09/09/20 22:35 [place] % (Auto) 11.0 % (0.0-7.3) H 09/09/20 22:35 Eos % (Auto) 9.3 % (0.0-4.3) H 09/09/20 22:35 Baso % (Auto) 1.0 % (0.0-1.8) 09/09/20 22:35 Lymph # (Auto) 1.3 K/mm3 (1.2-5.4) 09/09/20 22:35 [place] # (Auto) 0.4 K/mm3 (0.0-0.8) 09/09/20 22:35 Eos # (Auto) 0.3 K/mm3 (0.0-0.4) 09/09/20 22:35 Baso # (Auto) 0.0 K/mm3 (0.0-0.1) 09/09/20 22:35 Seg Neutrophils % 40.2 % (40.0-70.0) 09/09/20 22:35 Seg Neutrophils # 1.4 K/mm3 (1.8-7.7) L 09/09/20 22:35 Sodium 137 mmol/L (137-145) 09/09/20 22:35 Potassium 3.9 mmol/L (3.6-5.0) 09/09/20 22:35 Chloride 101.5 mmol/L (98-107) 09/09/20 22:35 Carbon Dioxide 25 mmol/L (22-30) 09/09/20 22:35 Anion Gap 14 mmol/L 09/09/20 22:35 BUN 17 mg/dL (7-17) 09/09/20 22:35 Creatinine 0.9 mg/dL (0.6-1.2) 09/09/20 22:35 Estimated GFR 59 ml/min 09/09/20 22:35 BUN/Creatinine Ratio 19 % 09/09/20 22:35 Glucose 81 mg/dL (65-100) 09/09/20 22:35 POC Glucose 124 mg/dL (70-105) H 09/09/20 16:11 Hemoglobin A1c 5.4 % (4-6) 09/09/20 22:35 Calcium 9.1 mg/dL (8.4-10.2) 09/09/20 22:35 Total Bilirubin 0.20 mg/dL (0.1-1.2) 09/09/20 22:35 AST 17 units/L (5-40) 09/09/20 22:35 ALT 8 units/L (7-56) 09/09/20 22:35 Alkaline Phosphatase 49 units/L (35-129) 09/09/20 22:35 Total Protein 6.2 g/dL (6.3-8.2) L 09/09/20 22:35 Albumin 3.7 g/dL (3.9-5) L 09/09/20 22:35 Albumin/Globulin Ratio 1.5 % 09/09/20 22:35 Triglycerides 41 mg/dL (2-149) 09/09/20 22:35 Cholesterol 181 mg/dL (50-199) 09/09/20 22:35 LDL Cholesterol Direct 106 mg/dL (50-130) 09/09/20 22:35 HDL Cholesterol 67 mg/dL (40-59) H 09/09/20 22:35 Cholesterol/HDL Ratio 2.70 % 09/09/20 22:35 TSH 3.530 mlU/mL (0.270-4.200) 09/09/20 22:35 [place]/IV: Voiding Method Toilet Active Medications - Current Medications Current Medications: Generic Name Dose Route Start Last Admin Trade Name Freq PRN Reason Stop Dose Admin Cholecalciferol 1,000 unit 09/10/20 10:00 09/13/20 10:16 Cholecalciferol (Vit D3) 1000 Unit (25 Mcg) Tab PO 1,000 unit QDAY DELFINO Administration Fish Oil 1,000 mg 09/10/20 10:00 09/13/20 11:59 [place]-3 Fatty Acids/Fish Oil 1 Gram Cap PO Not Given DAILY DELFINO Melatonin 5 mg 09/09/20 05:12 Melatonin 5 Mg Tab PO QHS PRN Sleep Multivitamins/Minerals 1 each 09/10/20 10:00 09/13/20 10:17 Multivitamins,Ther W-Minerals Tab PO 1 each DAILY DELFINO Administration Olanzapine 2.5 mg 09/10/20 13:00 09/13/20 10:17 Olanzapine 2.5 Mg Tab PO 2.5 mg QDAY DELFINO Administration Pravastatin Sodium 10 mg 09/10/20 22:00 09/12/20 22:15 Pravastatin 20 Mg Tab PO 10 mg HS DELFINO Administration Sertraline HCl 50 mg 09/12/20 10:00 09/13/20 10:20 Sertraline 50 Mg Tab PO 50 mg QDAY DELFINO Administration Tramadol HCl 50 mg 09/10/20 09:46 Tramadol 50 Mg Tab PO Q6HR PRN PAIN Trazodone HCl 50 mg 09/09/20 22:00 09/12/20 22:16 Trazodone 50 Mg Tab PO 50 mg QHS DELFINO Administration
[2020-09-13] MEDS: traZODone 50 MG TAB PO SCH (21:26)
[2020-09-13] MEDS: PRAVASTATIN 20 MG TAB PO SCH (21:27)
--- NOTE | 2020-09-14 09:14 | Progress Note ---
Subjective Date of service: 09/14/20 Principal diagnosis: Dementia with behavioral disturbance Subjective Comment: Per Nurse Note: Pt received in the activity room interacting appropriately with peers. Requesting physician underwriter to let her go home "now." Verbal support given and educated on discharge process. Denies pain, SI, or HI. No acute distress observed and reported. Will continue to monitor. The patient was seen today, she is calm and cooperative. She denies SI/HI, and states "I know next time to keep my big mouth shut." When asking the patient if she felt like she might do anything like that, she replied "oh no, I'm not gone do that." She denies hallucinations of any kind. REVIEW OF SYSTEMS Constitutional: Negative for weight loss ENT: Negative for stridor Respiratory: Negative for cough or hemoptysis All other systems reviewed and are negative MENTAL STATUS EXAMINATION General Appearance and Behavior: Age appropriate, good hygiene, not wearing appropriate clothes, good eye contact, calm and cooperative Cooperation: Participating, uncooperative at times Psychomotor Behavior: Psychomotor normal Mood: "okay" Affect and affective range: Congruent with stated mood Thought Process: goal oriented Speech: Normal tone and pace Thought Content Suicidal Ideation: Denies Homicidal Ideation: Denies Hallucinations: unclear Delusions: None elicited Impulse Control: Limited Insight and Judgment: limited insight and judgment Memory: Limited Attention: Divided attention impaired Orientation: A/o x 3 Assessment and Plan (1) Dementia with Behavioral Disturbance Current Visit: Yes Status: Acute Treatment Plan Patient admitted for inpatient psychiatric evaluation, medication adjustment and close monitoring The patient's behavior, mood, sleep and appetite will be closely monitored. Patient enrolled in individual and group therapeutic sessions and encouraged to attend. Patient provided with a safe and structured environment. Patient's physical health needs will be addressed by the Hospitalist. Hospitalist Consulted Labs including CBC, CMP, Lipid profile and Hemoglobin A1C levels ordered for baseline reference Social Assessment will be completed and the Electric Welder will work with patient and family to ensure a suitable and safe disposition Medication adjustment will be made as clinically indicated Continue Zoloft 50mg po daily Continue Zyprexa 2.5mg po daily Usual Wellness Orthodoxy/Preservation: - Start Trazodone 50 mg po QHS & 50 mg po QHS PRN between 10 PM & 2 AM for insomnia - Start Melatonin 5 mg po QHS to promote circadian rhythm - Start [place]-3 for brain health, reduce impulsivity, and as adjunctive treatment for mood disorder, continue upon discharge given overall benefits. - Start B1 prophylaxis with 200 mg po for 5 days The patient agreed on the treatment plan, understood the risk, benefit, alternative treatment, potential consequence of no treatment, and gave informed consent. Post hospital care: primary care provider, psychiatric provider Case staffed with Dr. Garvin. Medications and Allergies Allergies Allergy/AdvReac Type Severity Reaction Status Date / Time amoxicillin Allergy Unknown Verified 09/09/20 04:57 aspirin Allergy Unknown Verified 09/09/20 04:57 codeine Allergy Unknown Verified 09/09/20 04:57 Sulfa (Sulfonamide Allergy Unknown Verified 09/09/20 04:57 Antibiotics) Home Medications Medication Instructions Recorded Confirmed Last Taken Type Cholecalciferol (Vitamin D3) 1,000 unit PO QDAY 09/09/20 09/09/20 Unknown History [Vitamin D3 2,000 UNIT CAP] Multivitamin [Multiple Vitamins] 1 each PO DAILY 09/09/20 09/09/20 Unknown History [place]-3 Fatty Acids/Fish Oil [Cvs 1 each PO DAILY 09/09/20 09/09/20 Unknown History Fish Oil 1,200 mg Softgel] Simvastatin 10 mg PO HS 09/09/20 09/09/20 Unknown History traMADoL [Ultram] 50 mg PO Q6HR PRN 09/09/20 09/09/20 Unknown History Active Meds: Active Medications Cholecalciferol (Cholecalciferol (Vit D3) 1000 Unit (25 Mcg) Tab) 1,000 unit PO QDAY [facility] Last Admin: 09/13/20 10:16 Dose: 1,000 unit Documented by: Fish Oil ([place]-3 Fatty Acids/Fish Oil 1 Gram Cap) 1,000 mg PO DAILY [facility] Last Admin: 09/13/20 11:59 Dose: Not Given Documented by: Melatonin (Melatonin 5 Mg Tab) 5 mg PO QHS PRN PRN Reason: Sleep Multivitamins/Minerals (Multivitamins,Ther W-Minerals Tab) 1 each PO DAILY [facility] Last Admin: 09/13/20 10:17 Dose: 1 each Documented by: Olanzapine (Olanzapine 2.5 Mg Tab) 2.5 mg PO QDAY [facility] Last Admin: 09/13/20 10:17 Dose: 2.5 mg Documented by: Pravastatin Sodium (Pravastatin 20 Mg Tab) 10 mg PO [facility] Last Admin: 09/13/20 21:27 Dose: 10 mg Documented by: Sertraline HCl (Sertraline 50 Mg Tab) 50 mg PO QDAY [facility] Last Admin: 09/13/20 10:20 Dose: 50 mg Documented by: Tramadol HCl (Tramadol 50 Mg Tab) 50 mg PO Q6HR PRN PRN Reason: PAIN Trazodone HCl (Trazodone 50 Mg Tab) 50 mg PO QHS [facility] Last Admin: 09/13/20 21:26 Dose: 50 mg Documented by: Results - Results Labs/Vitals: Laboratory Last Values WBC 3.4 K/mm3 (4.5-11.0) L 09/09/20 22:35 RBC 4.16 M/mm3 (3.65-5.03) 09/09/20 22:35 Hgb 11.6 gm/dl (10.1-14.3) 09/09/20 22:35 Hct 35.0 % (30.3-42.9) 09/09/20 22:35 MCV 84 fl (79-97) 09/09/20 22:35 MCH 28 pg (28-32) 09/09/20 22:35 MCHC 33 % (30-34) 09/09/20 22:35 RDW 14.6 % (13.2-15.2) 09/09/20 22:35 Plt Count 146 K/mm3 (140-440) 09/09/20 22:35 Lymph % (Auto) 38.5 % (13.4-35.0) H 09/09/20 22:35 [place] % (Auto) 11.0 % (0.0-7.3) H 09/09/20 22:35 Eos % (Auto) 9.3 % (0.0-4.3) H 09/09/20 22:35 Baso % (Auto) 1.0 % (0.0-1.8) 09/09/20 22:35 Lymph # (Auto) 1.3 K/mm3 (1.2-5.4) 09/09/20 22:35 [place] # (Auto) 0.4 K/mm3 (0.0-0.8) 09/09/20 22:35 Eos # (Auto) 0.3 K/mm3 (0.0-0.4) 09/09/20 22:35 Baso # (Auto) 0.0 K/mm3 (0.0-0.1) 09/09/20 22:35 Seg Neutrophils % 40.2 % (40.0-70.0) 09/09/20 22:35 Seg Neutrophils # 1.4 K/mm3 (1.8-7.7) L 09/09/20 22:35 Sodium 137 mmol/L (137-145) 09/09/20 22:35 Potassium 3.9 mmol/L (3.6-5.0) 09/09/20 22:35 Chloride 101.5 mmol/L (98-107) 09/09/20 22:35 Carbon Dioxide 25 mmol/L (22-30) 09/09/20 22:35 Anion Gap 14 mmol/L 09/09/20 22:35 BUN 17 mg/dL (7-17) 09/09/20 22:35 Creatinine 0.9 mg/dL (0.6-1.2) 09/09/20 22:35 Estimated GFR 59 ml/min 09/09/20 22:35 BUN/Creatinine Ratio 19 % 09/09/20 22:35 Glucose 81 mg/dL (65-100) 09/09/20 22:35 POC Glucose 124 mg/dL (70-105) H 09/09/20 16:11 Hemoglobin A1c 5.4 % (4-6) 09/09/20 22:35 Calcium 9.1 mg/dL (8.4-10.2) 09/09/20 22:35 Total Bilirubin 0.20 mg/dL (0.1-1.2) 09/09/20 22:35 AST 17 units/L (5-40) 09/09/20 22:35 ALT 8 units/L (7-56) 09/09/20 22:35 Alkaline Phosphatase 49 units/L (35-129) 09/09/20 22:35 Total Protein 6.2 g/dL (6.3-8.2) L 09/09/20 22:35 Albumin 3.7 g/dL (3.9-5) L 09/09/20 22:35 Albumin/Globulin Ratio 1.5 % 09/09/20 22:35 Triglycerides 41 mg/dL (2-149) 09/09/20 22:35 Cholesterol 181 mg/dL (50-199) 09/09/20 22:35 LDL Cholesterol Direct 106 mg/dL (50-130) 09/09/20 22:35 HDL Cholesterol 67 mg/dL (40-59) H 09/09/20 22:35 Cholesterol/HDL Ratio 2.70 % 09/09/20 22:35 TSH 3.530 mlU/mL (0.270-4.200) 09/09/20 22:35 Last Vital Signs Temp 97.6 F 09/13/20 20:17 Pulse 90 09/13/20 20:17 Resp 16 09/13/20 20:17 BP 158/82 09/13/20 20:17 Pulse Ox 98 09/13/20 20:17
[2020-09-14] MEDS: OMEGA-3 FATTY ACIDS/FISH OIL 1 GRAM CAP PO SCH (09:59)
[2020-09-14] MEDS: CHOLECALCIFEROL (VIT D3) 1000 UNIT (25 mcg) TAB PO SCH (09:59)
[2020-09-14] MEDS: MULTIVITAMINS,THER W-MINERALS TAB PO SCH (09:59)
[2020-09-14] MEDS: SERTRALINE 50 MG TAB PO SCH (09:59)
[2020-09-14] MEDS: traZODone 50 MG TAB PO SCH (21:12)
[2020-09-14] MEDS: PRAVASTATIN 20 MG TAB PO SCH (21:12)
[2020-09-15] MEDS: OMEGA-3 FATTY ACIDS/FISH OIL 1 GRAM CAP PO SCH (09:39)
[2020-09-15] MEDS: SERTRALINE 50 MG TAB PO SCH (09:39)
[2020-09-15] MEDS: CHOLECALCIFEROL (VIT D3) 1000 UNIT (25 mcg) TAB PO SCH (09:39)
[2020-09-15] MEDS: MULTIVITAMINS,THER W-MINERALS TAB PO SCH (09:40)
--- NOTE | 2020-09-15 09:46 | Progress Note ---
Subjective Date of service: 09/15/20 Principal diagnosis: Dementia with behavioral disturbance Subjective Comment: The patient was seen today, she is calm and cooperative. She denies SI/HI. She says "no, no, no." She also denies hallucinations. She says she's upset. She looks like she's been crying. The patient says "nobody in my family have even been in a place like this." Reason for continued inpatient treatment: The patient is improving. The is working on placement to ensue safety. The patient is unable to care for herself. REVIEW OF SYSTEMS Constitutional: Negative for weight loss ENT: Negative for stridor Respiratory: Negative for cough or hemoptysis All other systems reviewed and are negative MENTAL STATUS EXAMINATION General Appearance and Behavior: Age appropriate, good hygiene, not wearing appr opriate clothes, good eye contact, calm and cooperative Cooperation: Participating, uncooperative at times Psychomotor Behavior: Psychomotor normal Mood: "okay" Affect and affective range: Congruent with stated mood Thought Process: goal oriented Speech: Normal tone and pace Thought Content Suicidal Ideation: Denies Homicidal Ideation: Denies Hallucinations: unclear Delusions: None elicited Impulse Control: Limited Insight and Judgment: limited insight and judgment Memory: Limited Attention: Divided attention impaired Orientation: A/o x 3 Assessment and Plan (1) Dementia with Behavioral Disturbance Current Visit: Yes Status: Acute Treatment Plan Patient admitted for inpatient psychiatric evaluation, medication adjustment and close monitoring The patient's behavior, mood, sleep and appetite will be closely monitored. Patient enrolled in individual and group therapeutic sessions and encouraged to attend. Patient provided with a safe and structured environment. Patient's physical health needs will be addressed by the Hospitalist. Hospitalist Consulted Labs including CBC, CMP, Lipid profile and Hemoglobin A1C levels ordered for baseline reference Social Assessment will be completed and the Die Cutter Diamond will work with patient and family to ensure a suitable and safe disposition Medication adjustment will be made as clinically indicated Continue Zoloft 50mg po daily Continue Zyprexa 2.5mg po daily Usual Wellness Orthodoxy/Preservation: - Start Trazodone 50 mg po QHS & 50 mg po QHS PRN between 10 PM & 2 AM for insomnia - Start Melatonin 5 mg po QHS to promote circadian rhythm - Start [place]-3 for brain health, reduce impulsivity, and as adjunctive treatment for mood disorder, continue upon discharge given overall benefits. - Start B1 prophylaxis with 200 mg po for 5 days The patient agreed on the treatment plan, understood the risk, benefit, alternative treatment, potential consequence of no treatment, and gave informed consent. Post hospital care: primary care provider, psychiatric provider Case staffed with Dr. Garvin. Medications and Allergies Allergies Allergy/AdvReac Type Severity Reaction Status Date / Time amoxicillin Allergy Unknown Verified 09/09/20 04:57 aspirin Allergy Unknown Verified 09/09/20 04:57 codeine Allergy Unknown Verified 09/09/20 04:57 Sulfa (Sulfonamide Allergy Unknown Verified 09/09/20 04:57 Antibiotics) Home Medications Medication Instructions Recorded Confirmed Last Taken Type Cholecalciferol (Vitamin D3) 1,000 unit PO QDAY 09/09/20 09/09/20 Unknown Hist ory [Vitamin D3 2,000 UNIT CAP] Multivitamin [Multiple Vitamins] 1 each PO DAILY 09/09/20 09/09/20 Unknown History [place]-3 Fatty Acids/Fish Oil [Cvs 1 each PO DAILY 09/09/20 09/09/20 Unknown History Fish Oil 1,200 mg Softgel] Simvastatin 10 mg PO HS 09/09/20 09/09/20 Unknown History traMADoL [Ultram] 50 mg PO Q6HR PRN 09/09/20 09/09/20 Unknown History Active Meds: Active Medications Cholecalciferol (Cholecalciferol (Vit D3) 1000 Unit (25 Mcg) Tab) 1,000 unit PO QDAY [facility] Last Admin: 09/15/20 09:39 Dose: 1,000 unit Documented by: Fish Oil ([place]-3 Fatty Acids/Fish Oil 1 Gram Cap) 1,000 mg PO DAILY [facility] Last Admin: 09/15/20 09:39 Dose: 1,000 mg Documented by: Melatonin (Melatonin 5 Mg Tab) 5 mg PO QHS PRN PRN Reason: Sleep Multivitamins/Minerals (Multivitamins,Ther W-Minerals Tab) 1 each PO DAILY [facility] Last Admin: 09/15/20 09:40 Dose: 1 each Documented by: Olanzapine (Olanzapine 2.5 Mg Tab) 2.5 mg PO QDAY [facility] Last Admin: 09/15/20 09:39 Dose: 2.5 mg Documented by: Pravastatin Sodium (Pravastatin 20 Mg Tab) 10 mg PO [facility] Last Admin: 09/14/20 21:12 Dose: 10 mg Documented by: Sertraline HCl (Sertraline 50 Mg Tab) 50 mg PO QDAY [facility] Last Admin: 09/15/20 09:39 Dose: 50 mg Documented by: Tramadol HCl (Tramadol 50 Mg Tab) 50 mg PO Q6HR PRN PRN Reason: PAIN Trazodone HCl (Trazodone 50 Mg Tab) 50 mg PO QHS [facility] Last Admin: 09/14/20 21:12 Dose: 50 mg Documented by: Results - Results Labs/Vitals: Laboratory Last Values WBC 3.4 K/mm3 (4.5-11.0) L 09/09/20 22:35 RBC 4.16 M/mm3 (3.65-5.03) 09/09/20 22:35 Hgb 11.6 gm/dl (10.1-14.3) 09/09/20 22:35 Hct 35.0 % (30.3-42.9) 09/09/20 22:35 MCV 84 fl (79-97) 09/09/20 22:35 MCH 28 pg (28-32) 09/09/20 22:35 MCHC 33 % (30-34) 09/09/20 22:35 RDW 14.6 % (13.2-15.2) 09/09/20 22:35 Plt Count 146 K/mm3 (140-440) 09/09/20 22:35 Lymph % (Auto) 38.5 % (13.4-35.0) H 09/09/20 22:35 [place] % (Auto) 11.0 % (0.0-7.3) H 09/09/20 22:35 Eos % (Auto) 9.3 % (0.0-4.3) H 09/09/20 22:35 Baso % (Auto) 1.0 % (0.0-1.8) 09/09/20 22:35 Lymph # (Auto) 1.3 K/mm3 (1.2-5.4) 09/09/20 22:35 [place] # (Auto) 0.4 K/mm3 (0.0-0.8) 09/09/20 22:35 Eos # (Auto) 0.3 K/mm3 (0.0-0.4) 09/09/20 22:35 Baso # (Auto) 0.0 K/mm3 (0.0-0.1) 09/09/20 22:35 Seg Neutrophils % 40.2 % (40.0-70.0) 09/09/20 22:35 Seg Neutrophils # 1.4 K/mm3 (1.8-7.7) L 09/09/20 22:35 Sodium 137 mmol/L (137-145) 09/09/20 22:35 Potassium 3.9 mmol/L (3.6-5.0) 09/09/20 22:35 Chloride 101.5 mmol/L (98-107) 09/09/20 22:35 Carbon Dioxide 25 mmol/L (22-30) 09/09/20 22:35 Anion Gap 14 mmol/L 09/09/20 22:35 BUN 17 mg/dL (7-17) 09/09/20 22:35 Creatinine 0.9 mg/dL (0.6-1.2) 09/09/20 22:35 Estimated GFR 59 ml/min 09/09/20 22:35 BUN/Creatinine Ratio 19 % 09/09/20 22:35 Glucose 81 mg/dL (65-100) 09/09/20 22:35 POC Glucose 124 mg/dL (70-105) H 09/09/20 16:11 Hemoglobin A1c 5.4 % (4-6) 09/09/20 22:35 Calcium 9.1 mg/dL (8.4-10.2) 09/09/20 22:35 Total Bilirubin 0.20 mg/dL (0.1-1.2) 09/09/20 22:35 AST 17 units/L (5-40) 09/09/20 22:35 ALT 8 units/L (7-56) 09/09/20 22:35 Alkaline Phosphatase 49 units/L (35-129) 09/09/20 22:35 Total Protein 6.2 g/dL (6.3-8.2) L 09/09/20 22:35 Albumin 3.7 g/dL (3.9-5) L 09/09/20 22:35 Albumin/Globulin Ratio 1.5 % 09/09/20 22:35 Triglycerides 41 mg/dL (2-149) 09/09/20 22:35 Cholesterol 181 mg/dL (50-199) 09/09/20 22:35 LDL Cholesterol Direct 106 mg/dL (50-130) 09/09/20 22:35 HDL Cholesterol 67 mg/dL (40-59) H 09/09/20 22:35 Cholesterol/HDL Ratio 2.70 % 09/09/20 22:35 TSH 3.530 mlU/mL (0.270-4.200) 09/09/20 22:35 Last Vital Signs Temp 98.0 F 09/15/20 08:50 Pulse 79 09/15/20 08:50 Resp 18 09/15/20 08:50 BP 142/79 09/15/20 08:50 Pulse Ox 99 09/15/20 08:50
[2020-09-15] MEDS: traZODone 50 MG TAB PO SCH (21:13)
[2020-09-15] MEDS: PRAVASTATIN 20 MG TAB PO SCH (21:13)
[2020-09-16] MEDS: MULTIVITAMINS,THER W-MINERALS TAB PO SCH (09:44)
[2020-09-16] MEDS: OMEGA-3 FATTY ACIDS/FISH OIL 1 GRAM CAP PO SCH (09:44)
[2020-09-16] MEDS: CHOLECALCIFEROL (VIT D3) 1000 UNIT (25 mcg) TAB PO SCH (09:44)
[2020-09-16] MEDS: SERTRALINE 50 MG TAB PO SCH (09:45)
--- NOTE | 2020-09-16 10:08 | Progress Note ---
Subjective Date of service: 09/16/20 Principal diagnosis: Dementia with behavioral disturbance Subjective Comment: Per Psych Nurse: 0745 Pt awake, tearful, stating that she doesn't want to be here, she wants to go home. Staff reassured pt, but is still tearful, staff will continue to reassure and monitor pt. Psych Progress HPI Patient seen this AM, state she is here because of her mouth and wants to get out of here, she knows its 2020 but apologized for being a slow thinker and she does not know the month or day. Patient endorses staying alone and her neighbours comes around to help at times and she deserves to go back home because she does not want to be in a nursing facility. Reason for continuing inpatient treatment: Continue to observe for mood pending social work evaluation for placement Review of Symptoms: Constitutional: Negative for weight loss ENT: Negative for stridor Respiratory: Negative for cough or hemoptysis All other systems reviewed and are negative MENTAL STATUS EXAMINATION General Appearance and Behavior: Age appropriate, good hygiene, wearing appropriate clothes, uncooperative polite with questioning. Cooperation: cooperative Psychomotor Behavior: Psychomotor normal Mood: sad Affect and affective range: congruent with mood Thought Process: Tangential, loose associattion Thought Content: Paranoid and confused Speech: Normal volume, Regular rate and rhythm, Intellectual Functioning: Poor Suicidal Ideation: N/A Homicidal Ideation: N/A Impulse Control: Unimpaired Insight and Judgment: Impaired Memory: memory impaired Attention:Distractible, Orientation: Alert, but disoriented and confused Treatment Plan Continue current medications Patient admitted for inpatient psychiatric evaluation, medication adjustment and close monitoring The patient's behavior, mood, sleep and appetite will be closely monitored. Patient enrolled in individual and group therapeutic sessions and encouraged to attend. Patient provided with a safe and structured environment. Patient's physical health needs will be addressed by the Hospitalist. Hospitalist Consulted Labs including CBC, CMP, Lipid profile and Hemoglobin A1C levels ordered for baseline reference Social Assessment will be completed and the Avionics Technician will work with patient and family to ensure a suitable and safe disposition Medication adjustment will be made as clinically indicated Usual Wellness Nondenominational/Preservation: - Start Trazodone 50 mg po QHS & 50 mg po QHS PRN between 10 PM & 2 AM for insomnia - Start Melatonin 5 mg po QHS to promote circadian rhythm - Start [place]-3 for brain health, reduce impulsivity, and as adjunctive treatment for mood disorder, continue upon discharge given overall benefits. - Start B1 prophylaxis with 200 mg po for 5 days The patient agreed on the treatment plan, understood the risk, benefit, alternative treatment, potential consequence of no treatment, and gave informed consent. Initial Certification Inpatient psych services: I certify that the inpatient psychiatric services are required for treatment that could reasonably be expected to improve the patient's condition. Estimated days: 3 Post hospital care: primary care provider, psychiatric provider Medications and Allergies Allergies Allergy/AdvReac Type Severity Reaction Status Date / Time amoxicillin Allergy Unknown Verified 09/09/20 04:57 aspirin Allergy Unknown Verified 09/09/20 04:57 codeine Allergy Unknown Verified 09/09/20 04:57 Sulfa (Sulfonamide Allergy Unknown Verified 09/09/20 04:57 Antibiotics) Home Medications Medication Instructions Recorded Confirmed Last Taken Type Cholecalciferol (Vitamin D3) 1,000 unit PO QDAY 09/09/20 09/09/20 Unknown History [Vitamin D3 2,000 UNIT CAP] Multivitamin [Multiple Vitamins] 1 each PO DAILY 09/09/20 09/09/20 Unknown History [place]-3 Fatty Acids/Fish Oil [Cvs 1 each PO DAILY 09/09/20 09/09/20 Unknown History Fish Oil 1,200 mg Softgel] Simvastatin 10 mg PO HS 09/09/20 09/09/20 Unknown History traMADoL [Ultram] 50 mg PO Q6HR PRN 09/09/20 09/09/20 Unknown History Active Meds: Active Medications Cholecalciferol (Cholecalciferol (Vit D3) 1000 Unit (25 Mcg) Tab) 1,000 unit PO QDAY [facility] Last Admin: 09/16/20 09:44 Dose: 1,000 unit Documented by: Fish Oil ([place]-3 Fatty Acids/Fish Oil 1 Gram Cap) 1,000 mg PO DAILY [facility] Last Admin: 09/16/20 09:44 Dose: 1,000 mg Documented by: Melatonin (Melatonin 5 Mg Tab) 5 mg PO QHS PRN PRN Reason: Sleep Multivitamins/Minerals (Multivitamins,Ther W-Minerals Tab) 1 each PO DAILY [facility] Last Admin: 09/16/20 09:44 Dose: 1 each Documented by: Olanzapine (Olanzapine 2.5 Mg Tab) 2.5 mg PO QDAY [facility] Last Admin: 09/16/20 09:44 Dose: 2.5 mg Documented by: Pravastatin Sodium (Pravastatin 20 Mg Tab) 10 mg PO [facility] Last Admin: 09/15/20 21:13 Dose: 10 mg Documented by: Sertraline HCl (Sertraline 50 Mg Tab) 50 mg PO QDAY [facility] Last Admin: 09/16/20 09:45 Dose: 50 mg Documented by: Tramadol HCl (Tramadol 50 Mg Tab) 50 mg PO Q6HR PRN PRN Reason: PAIN Trazodone HCl (Trazodone 50 Mg Tab) 50 mg PO QHS [facility] Last Admin: 09/15/20 21:13 Dose: 50 mg Documented by: Results - Results Labs/Vitals: Laboratory Last Values WBC 3.4 K/mm3 (4.5-11.0) L 09/09/20 22:35 RBC 4.16 M/mm3 (3.65-5.03) 09/09/20 22:35 Hgb 11.6 gm/dl (10.1-14.3) 09/09/20 22:35 Hct 35.0 % (30.3-42.9) 09/09/20 22:35 MCV 84 fl (79-97) 09/09/20 22:35 MCH 28 pg (28-32) 09/09/20 22:35 MCHC 33 % (30-34) 09/09/20 22:35 RDW 14.6 % (13.2-15.2) 09/09/20 22:35 Plt Count 146 K/mm3 (140-440) 09/09/20 22:35 Lymph % (Auto) 38.5 % (13.4-35.0) H 09/09/20 22:35 [place] % (Auto) 11.0 % (0.0-7.3) H 09/09/20 22:35 Eos % (Auto) 9.3 % (0.0-4.3) H 09/09/20 22:35 Baso % (Auto) 1.0 % (0.0-1.8) 09/09/20 22:35 Lymph # (Auto) 1.3 K/mm3 (1.2-5.4) 09/09/20 22:35 [place] # (Auto) 0.4 K/mm3 (0.0-0.8) 09/09/20 22:35 Eos # (Auto) 0.3 K/mm3 (0.0-0.4) 09/09/20 22:35 Baso # (Auto) 0.0 K/mm3 (0.0-0.1) 09/09/20 22:35 Seg Neutrophils % 40.2 % (40.0-70.0) 09/09/20 22:35 Seg Neutrophils # 1.4 K/mm3 (1.8-7.7) L 09/09/20 22:35 Sodium 137 mmol/L (137-145) 09/09/20 22:35 Potassium 3.9 mmol/L (3.6-5.0) 09/09/20 22:35 Chloride 101.5 mmol/L (98-107) 09/09/20 22:35 Carbon Dioxide 25 mmol/L (22-30) 09/09/20 22:35 Anion Gap 14 mmol/L 09/09/20 22:35 BUN 17 mg/dL (7-17) 09/09/20 22:35 Creatinine 0.9 mg/dL (0.6-1.2) 09/09/20 22:35 Estimated GFR 59 ml/min 09/09/20 22:35 BUN/Creatinine Ratio 19 % 09/09/20 22:35 Glucose 81 mg/dL (65-100) 09/09/20 22:35 POC Glucose 124 mg/dL (70-105) H 09/09/20 16:11 Hemoglobin A1c 5.4 % (4-6) 09/09/20 22:35 Calcium 9.1 mg/dL (8.4-10.2) 09/09/20 22:35 Total Bilirubin 0.20 mg/dL (0.1-1.2) 09/09/20 22:35 AST 17 units/L (5-40) 09/09/20 22:35 ALT 8 units/L (7-56) 09/09/20 22:35 Alkaline Phosphatase 49 units/L (35-129) 09/09/20 22:35 Total Protein 6.2 g/dL (6.3-8.2) L 09/09/20 22:35 Albumin 3.7 g/dL (3.9-5) L 09/09/20 22:35 Albumin/Globulin Ratio 1.5 % 09/09/20 22:35 Triglycerides 41 mg/dL (2-149) 09/09/20 22:35 Cholesterol 181 mg/dL (50-199) 09/09/20 22:35 LDL Cholesterol Direct 106 mg/dL (50-130) 09/09/20 22:35 HDL Cholesterol 67 mg/dL (40-59) H 09/09/20 22:35 Cholesterol/HDL Ratio 2.70 % 09/09/20 22:35 TSH 3.530 mlU/mL (0.270-4.200) 09/09/20 22:35 Last Vital Signs Temp 98.2 F 09/16/20 08:13 Pulse 78 09/16/20 08:13 Resp 18 09/16/20 08:13 BP 173/87 09/16/20 08:13 Pulse Ox 98 09/16/20 08:13
[2020-09-16] MEDS: traZODone 50 MG TAB PO SCH (21:19)
[2020-09-16] MEDS: PRAVASTATIN 20 MG TAB PO SCH (21:19)
[2020-09-17] MEDS: MULTIVITAMINS,THER W-MINERALS TAB PO SCH (09:19)
[2020-09-17] MEDS: CHOLECALCIFEROL (VIT D3) 1000 UNIT (25 mcg) TAB PO SCH (09:19)
[2020-09-17] MEDS: OMEGA-3 FATTY ACIDS/FISH OIL 1 GRAM CAP PO SCH (09:19)
[2020-09-17] MEDS: SERTRALINE 50 MG TAB PO SCH (09:19)
--- NOTE | 2020-09-17 10:19 | Progress Note ---
Subjective Date of service: 09/17/20 Principal diagnosis: Dementia with behavioral disturbance Subjective Comment: Per Psych Nurse: [id number] Pt still depress, sad and tearful, but she is med compliant and participated in group activities. This afternoon about 1600, pt was confuse, trying to operate the machine by her room entrance, but there was no machine. Pt was redirected, Staff will continue to monitor. Psych Progress HPI Patient seen this AM, she reports not being happy here, asking to be discharged home today. Reason for continuing inpatient treatment: Patient pending social work palcement, as family determine patient not safe to live by self at this moment. Review of Symptoms: Constitutional: Negative for weight loss ENT: Negative for stridor Respiratory: Negative for cough or hemoptysis All other systems reviewed and are negative MENTAL STATUS EXAMINATION General Appearance and Behavior: Age appropriate, good hygiene, wearing appropriate clothes, uncooperative polite with questioning. Cooperation: cooperative Psychomotor Behavior: Psychomotor normal Mood: sad Affect and affective range: congruent with mood Thought Process: Tangential, loose associattion Thought Content: Paranoid and confused Speech: Normal volume, Regular rate and rhythm, Intellectual Functioning: Poor Suicidal Ideation: N/A Homicidal Ideation: N/A Impulse Control: Unimpaired Insight and Judgment: Impaired Memory: memory impaired Attention:Distractible, Orientation: Alert, but disoriented and confused Treatment Plan Continue current medications Patient admitted for inpatient psychiatric evaluation, medication adjustment and close monitoring The patient's behavior, mood, sleep and appetite will be closely monitored. Patient enrolled in individual and group therapeutic sessions and encouraged to attend. Patient provided with a safe and structured environment. Patient's physical health needs will be addressed by the Hospitalist. Hosp italist Consulted Labs including CBC, CMP, Lipid profile and Hemoglobin A1C levels ordered for baseline reference Social Assessment will be completed and the Hr Operations Advisor will work with patient and family to ensure a suitable and safe disposition Medication adjustment will be made as clinically indicated Usual Wellness Zoroastrianism/Preservation: - Start Trazodone 50 mg po QHS & 50 mg po QHS PRN between 10 PM & 2 AM for insomnia - Start Melatonin 5 mg po QHS to promote circadian rhythm - Start [place]-3 for brain health, reduce impulsivity, and as adjunctive treatment for mood disorder, continue upon discharge given overall benefits. - Start B1 prophylaxis with 200 mg po for 5 days The patient agreed on the treatment plan, understood the risk, benefit, alternative treatment, potential consequence of no treatment, and gave informed consent. Initial Certification Inpatient psych services: I certify that the inpatient psychiatric services are required for treatment that could reasonably be expected to improve the patient's condition. Estimated days: 2 Post hospital care: primary care provider, psychiatric provider Medications and Allergies Allergies Allergy/AdvReac Type Severity Reaction Status Date / Time amoxicillin Allergy Unknown Verified 09/09/20 04:57 aspirin Allergy Unknown Verified 09/09/20 04:57 codeine Allergy Unknown Verified 09/09/20 04:57 Sulfa (Sulfonamide Allergy Unknown Verified 09/09/20 04:57 Antibiotics) Home Medications Medication Instructions Recorded Confirmed Last Taken Type Cholecalciferol (Vitamin D3) 1,000 unit PO QDAY 09/09/20 09/09/20 Unknown History [Vitamin D3 2,000 UNIT CAP] Multivitamin [Multiple Vitamins] 1 each PO DAILY 09/09/20 09/09/20 Unknown History Mel[place]-3 Fatty Acids/Fish Oil [Cvs 1 each PO DAILY 09/09/20 09/09/20 Unknown History Fish Oil 1,200 mg Softgel] Simvastatin 10 mg PO HS 09/09/20 09/09/20 Unknown History traMADoL [Ultram] 50 mg PO Q6HR PRN 09/09/20 09/09/20 Unknown History Active Meds: Active Medications Cholecalciferol (Cholecalciferol (Vit D3) 1000 Unit (25 Mcg) Tab) 1,000 unit PO QDAY [facility] Last Admin: 09/17/20 09:19 Dose: 1,000 unit Documented by: Fish Oil (Melrude-3 Fatty Acids/Fish Oil 1 Gram Cap) 1,000 mg PO DAILY [facility] Last Admin: 09/17/20 09:19 Dose: 1,000 mg Documented by: Melatonin (Melatonin 5 Mg Tab) 5 mg PO QHS PRN PRN Reason: Sleep Multivitamins/Minerals (Multivitamins,Ther W-Minerals Tab) 1 each PO DAILY [facility] Last Admin: 09/17/20 09:19 Dose: 1 each Documented by: Olanzapine (Olanzapine 2.5 Mg Tab) 2.5 mg PO QDAY [facility] Last Admin: 09/17/20 09:19 Dose: 2.5 mg Documented by: Pravastatin Sodium (Pravastatin 20 Mg Tab) 10 mg PO [facility] Last Admin: 09/16/20 21:19 Dose: 10 mg Documented by: Sertraline HCl (Sertraline 50 Mg Tab) 50 mg PO QDAY [facility] Last Admin: 09/17/20 09:19 Dose: 50 mg Documented by: Tramadol HCl (Tramadol 50 Mg Tab) 50 mg PO Q6HR PRN PRN Reason: PAIN Trazodone HCl (Trazodone 50 Mg Tab) 50 mg PO QHS [facility] Last Admin: 09/16/20 21:19 Dose: 50 mg Documented by: Results - Results Labs/Vitals: Laboratory Last Values WBC 3.4 K/mm3 (4.5-11.0) L 09/09/20 22:35 RBC 4.16 M/mm3 (3.65-5.03) 09/09/20 22:35 Hgb 11.6 gm/dl (10.1-14.3) 09/09/20 22:35 Hct 35.0 % (30.3-42.9) 09/09/20 22:35 MCV 84 fl (79-97) 09/09/20 22:35 MCH 28 pg (28-32) 09/09/20 22:35 MCHC 33 % (30-34) 09/09/20 22:35 RDW 14.6 % (13.2-15.2) 09/09/20 22:35 Plt Count 146 K/mm3 (140-440) 09/09/20 22:35 Lymph % (Auto) 38.5 % (13.4-35.0) H 09/09/20 22:35 [place] % (Auto) 11.0 % (0.0-7.3) H 09/09/20 22:35 Eos % (Auto) 9.3 % (0.0-4.3) H 09/09/20 22:35 Baso % (Auto) 1.0 % (0.0-1.8) 09/09/20 22:35 Lymph # (Auto) 1.3 K/mm3 (1.2-5.4) 09/09/20 22:35 [place] # (Auto) 0.4 K/mm3 (0.0-0.8) 09/09/20 22:35 Eos # (Auto) 0.3 K/mm3 (0.0-0.4) 09/09/20 22:35 Baso # (Auto) 0.0 K/mm3 (0.0-0.1) 09/09/20 22:35 Seg Neutrophils % 40.2 % (40.0-70.0) 09/09/20 22:35 Seg Neutrophils # 1.4 K/mm3 (1.8-7.7) L 09/09/20 22:35 Sodium 137 mmol/L (137-145) 09/09/20 22:35 Potassium 3.9 mmol/L (3.6-5.0) 09/09/20 22:35 Chloride 101.5 mmol/L (98-107) 09/09/20 22:35 Carbon Dioxide 25 mmol/L (22-30) 09/09/20 22:35 Anion Gap 14 mmol/L 09/09/20 22:35 BUN 17 mg/dL (7-17) 09/09/20 22:35 Creatinine 0.9 mg/dL (0.6-1.2) 09/09/20 22:35 Estimated GFR 59 ml/min 09/09/20 22:35 BUN/Creatinine Ratio 19 % 09/09/20 22:35 Glucose 81 mg/dL (65-100) 09/09/20 22:35 POC Glucose 124 mg/dL (70-105) H 09/09/20 16:11 Hemoglobin A1c 5.4 % (4-6) 09/09/20 22:35 Calcium 9.1 mg/dL (8.4-10.2) 09/09/20 22:35 Total Bilirubin 0.20 mg/dL (0.1-1.2) 09/09/20 22:35 AST 17 units/L (5-40) 09/09/20 22:35 ALT 8 units/L (7-56) 09/09/20 22:35 Alkaline Phosphatase 49 units/L (35-129) 09/09/20 22:35 Total Protein 6.2 g/dL (6.3-8.2) L 09/09/20 22:35 Albumin 3.7 g/dL (3.9-5) L 09/09/20 22:35 Albumin/Globulin Ratio 1.5 % 09/09/20 22:35 Triglycerides 41 mg/dL (2-149) 09/09/20 22:35 Cholesterol 181 mg/dL (50-199) 09/09/20 22:35 LDL Cholesterol Direct 106 mg/dL (50-130) 09/09/20 22:35 HDL Cholesterol 67 mg/dL (40-59) H 09/09/20 22:35 Cholesterol/HDL Ratio 2.70 % 09/09/20 22:35 TSH 3.530 mlU/mL (0.270-4.200) 09/09/20 22:35 Last Vital Signs Temp 98.3 F 09/17/20 08:39 Pulse 78 09/17/20 08:39 Resp 18 09/17/20 08:39 BP 130/55 09/17/20 08:39 Pulse Ox 98 09/17/20 08:39
[2020-09-17] MEDS: traZODone 50 MG TAB PO SCH (21:08)
[2020-09-17] MEDS: PRAVASTATIN 20 MG TAB PO SCH (21:09)
[2020-09-18] MEDS: SERTRALINE 50 MG TAB PO SCH (09:34)
[2020-09-18] MEDS: CHOLECALCIFEROL (VIT D3) 1000 UNIT (25 mcg) TAB PO SCH (09:34)
[2020-09-18] MEDS: OMEGA-3 FATTY ACIDS/FISH OIL 1 GRAM CAP PO SCH (09:35)
[2020-09-18] MEDS: MULTIVITAMINS,THER W-MINERALS TAB PO SCH (09:35)
--- NOTE | 2020-09-18 10:17 | Progress Note ---
Subjective Date of service: 09/18/20 Principal diagnosis: Dementia with behavioral disturbance Subjective Comment: Per Psych Nurse: Received pt in bed awake crying, patient says she want to go home, pt was reassured, assisted with shower, and escorted to dayroom for breakfast, will continue to monitor. Psych Progress HPI Patient seen this AM, asking for discharge back home, states she has been here for 2 days or maybe more than that and is yet to go back home. She endorses doing well besides this primary concern. Denies SI, HI or AVH. Reason for continuing inpatient treatment: Patient pending social work palcement, as family determine patient not safe to live by self at this moment. Review of Symptoms: Constitutional: Negative for weight loss ENT: Negative for stridor Respiratory: Negative for cough or hemoptysis All other systems reviewed and are negative MENTAL STATUS EXAMINATION General Appearance and Behavior: Age appropriate, good hygiene, wearing appr opriate clothes, uncooperative polite with questioning. Cooperation: cooperative Psychomotor Behavior: Psychomotor normal Mood: sad Affect and affective range: congruent with mood Thought Process: Tangential, loose associattion Thought Content: Paranoid and confused Speech: Normal volume, Regular rate and rhythm, Intellectual Functioning: Poor Suicidal Ideation: N/A Homicidal Ideation: N/A Impulse Control: Unimpaired Insight and Judgment: Impaired Memory: memory impaired Attention:Distractible, Orientation: Alert, but disoriented and confused Treatment Plan Continue current medications Patient admitted for inpatient psychiatric evaluation, medication adjustment and close monitoring The patient's behavior, mood, sleep and appetite will be closely monitored. Patient enrolled in individual and group therapeutic sessions and encouraged to attend. Patient provided with a safe and structured environment. Patient's physical health needs will be addressed by the Hospitalist. Hospitalist Consulted Labs including CBC, CMP, Lipid profile and Hemoglobin A1C levels ordered for baseline reference Social Assessment will be completed and the Motor Vehicle Assembly Supervisor will work with patient and family to ensure a suitable and safe disposition Medication adjustment will be made as clinically indicated Usual Wellness Islam/Preservation: - Start Trazodone 50 mg po QHS & 50 mg po QHS PRN between 10 PM & 2 AM for insomnia - Start Melatonin 5 mg po QHS to promote circadian rhythm - Start [place]-3 for brain health, reduce impulsivity, and as adjunctive treatment for mood disorder, continue upon discharge given overall benefits. - Start B1 prophylaxis with 200 mg po for 5 days The patient agreed on the treatment plan, understood the risk, benefit, alternative treatment, potential consequence of no treatment, and gave informed consent. Initial Certification Inpatient psych services: I certify that the inpatient psychiatric services are required for treatment that could reasonably be expected to improve the patient's condition. Estimated days: 2 Post hospital care: primary care provider, psychiatric provider Medications and Allergies Allergies Allergy/AdvReac Type Severity Reaction Status Date / Time amoxicillin Allergy Unknown Verified 09/09/20 04:57 aspirin Allergy Unknown Verified 09/09/20 04:57 codeine Allergy Unknown Verified 09/09/20 04:57 Sulfa (Sulfonamide Allergy Unknown Verified 09/09/20 04:57 Antibiotics) Home Medications Medication Instructions Recorded Confirmed Last Taken Type Cholecalciferol (Vitamin D3) 1,000 unit PO QDAY 09/09/20 09/09/20 Unknown History [Vitamin D3 2,000 UNIT CAP] Multivitamin [Multiple Vitamins] 1 each PO DAILY 09/09/20 09/09/20 Unknown History [place]-3 Fatty Acids/Fish Oil [Cvs 1 each PO DAILY 09/09/20 09/09/20 Unknown History Fish Oil 1,200 mg Softgel] Simvastatin 10 mg PO HS 09/09/20 09/09/20 Unknown History traMADoL [Ultram] 50 mg PO Q6HR PRN 09/09/20 09/09/20 Unknown History Active Meds: Active Medications Cholecalciferol (Cholecalciferol (Vit D3) 1000 Unit (25 Mcg) Tab) 1,000 unit PO QDAY [facility] Last Admin: 09/18/20 09:34 Dose: 1,000 unit Documented by: Fish Oil ([place]-3 Fatty Acids/Fish Oil 1 Gram Cap) 1,000 mg PO DAILY [facility] Last Admin: 09/18/20 09:35 Dose: 1,000 mg Documented by: Melatonin (Melatonin 5 Mg Tab) 5 mg PO QHS PRN PRN Reason: Sleep Multivitamins/Minerals (Multivitamins,Ther W-Minerals Tab) 1 each PO DAILY [facility] Last Admin: 09/18/20 09:35 Dose: 1 each Documented by: Olanzapine (Olanzapine 2.5 Mg Tab) 2.5 mg PO QDAY [facility] Last Admin: 09/18/20 09:34 Dose: 2.5 mg Documented by: Pravastatin Sodium (Pravastatin 20 Mg Tab) 10 mg PO [facility] Last Admin: 09/17/20 21:09 Dose: 10 mg Documented by: Sertraline HCl (Sertraline 50 Mg Tab) 50 mg PO QDAY [facility] Last Admin: 09/18/20 09:34 Dose: 50 mg Documented by: Tramadol HCl (Tramadol 50 Mg Tab) 50 mg PO Q6HR PRN PRN Reason: PAIN Last Admin: 09/18/20 09:35 Dose: 50 mg Documented by: Trazodone HCl (Trazodone 50 Mg Tab) 50 mg PO QHS [facility] Last Admin: 09/17/20 21:08 Dose: 50 mg Documented by: Results - Results Labs/Vitals: Laboratory Last Values WBC 3.4 K/mm3 (4.5-11.0) L 09/09/20 22:35 RBC 4.16 M/mm3 (3.65-5.03) 09/09/20 22:35 Hgb 11.6 gm/dl (10.1-14.3) 09/09/20 22:35 Hct 35.0 % (30.3-42.9) 09/09/20 22:35 MCV 84 fl (79-97) 09/09/20 22:35 MCH 28 pg (28-32) 09/09/20 22:35 MCHC 33 % (30-34) 09/09/20 22:35 RDW 14.6 % (13.2-15.2) 09/09/20 22:35 Plt Count 146 K/mm3 (140-440) 09/09/20 22:35 Lymph % (Auto) 38.5 % (13.4-35.0) H 09/09/20 22:35 [place] % (Auto) 11.0 % (0.0-7.3) H 09/09/20 22:35 Eos % (Auto) 9.3 % (0.0-4.3) H 09/09/20 22:35 Baso % (Auto) 1.0 % (0.0-1.8) 09/09/20 22:35 Lymph # (Auto) 1.3 K/mm3 (1.2-5.4) 09/09/20 22:35 [place] # (Auto) 0.4 K/mm3 (0.0-0.8) 09/09/20 22:35 Eos # (Auto) 0.3 K/mm3 (0.0-0.4) 09/09/20 22:35 Baso # (Auto) 0.0 K/mm3 (0.0-0.1) 09/09/20 22:35 Seg Neutrophils % 40.2 % (40.0-70.0) 09/09/20 22:35 Seg Neutrophils # 1.4 K/mm3 (1.8-7.7) L 09/09/20 22:35 Sodium 137 mmol/L (137-145) 09/09/20 22:35 Potassium 3.9 mmol/L (3.6-5.0) 09/09/20 22:35 Chloride 101.5 mmol/L (98-107) 09/09/20 22:35 Carbon Dioxide 25 mmol/L (22-30) 09/09/20 22:35 Anion Gap 14 mmol/L 09/09/20 22:35 BUN 17 mg/dL (7-17) 09/09/20 22:35 Creatinine 0.9 mg/dL (0.6-1.2) 09/09/20 22:35 Estimated GFR 59 ml/min 09/09/20 22:35 BUN/Creatinine Ratio 19 % 09/09/20 22:35 Glucose 81 mg/dL (65-100) 09/09/20 22:35 POC Glucose 124 mg/dL (70-105) H 09/09/20 16:11 Hemoglobin A1c 5.4 % (4-6) 09/09/20 22:35 Calcium 9.1 mg/dL (8.4-10.2) 09/09/20 22:35 Total Bilirubin 0.20 mg/dL (0.1-1.2) 09/09/20 22:35 AST 17 units/L (5-40) 09/09/20 22:35 ALT 8 units/L (7-56) 09/09/20 22:35 Alkaline Phosphatase 49 units/L (35-129) 09/09/20 22:35 Total Protein 6.2 g/dL (6.3-8.2) L 09/09/20 22:35 Albumin 3.7 g/dL (3.9-5) L 09/09/20 22:35 Albumin/Globulin Ratio 1.5 % 09/09/20 22:35 Triglycerides 41 mg/dL (2-149) 09/09/20 22:35 Cholesterol 181 mg/dL (50-199) 09/09/20 22:35 LDL Cholesterol Direct 106 mg/dL (50-130) 09/09/20 22:35 HDL Cholesterol 67 mg/dL (40-59) H 09/09/20 22:35 Cholesterol/HDL Ratio 2.70 % 09/09/20 22:35 TSH 3.530 mlU/mL (0.270-4.200) 09/09/20 22:35 Last Vital Signs Temp 98.2 F 09/17/20 19:39 Pulse 79 09/17/20 19:39 Resp 18 09/17/20 19:39 BP 161/83 09/17/20 19:39 Pulse Ox 98 09/17/20 19:39
--- NOTE | 2020-09-18 20:21 | Progress Note ---
Assessment and Plan - Patient Problems (1) Vascular dementia with behavioral disturbance Current Visit: Yes Status: Acute Plan to address problem: Verbal prompting, verbal redirection, benzodiazepine therapy as clinically indicated, supportive care. (2) Cerebral atherosclerosis Current Visit: Yes Status: Acute Plan to address problem: Antiplatelet therapy as clinically indicated, risk factor reduction. (3) Depression Current Visit: Yes Status: Acute Plan to address problem: Continue medical management, (4) Hyperlipidemia Current Visit: Yes Status: Acute Qualifiers: Hyperlipidemia type: mixed hyperlipidemia Qualified Code(s): E78.2 - Mixed hyperlipidemia Plan to address problem: Low-cholesterol diet, statin therapy as clinically indicated. History Interval history: 89 YO Female with Vascular Dementia with Behavioral Disturbance, Cerebral Atherosclerosis, HLD, Depression admitted to [facility] for psychiatric stabilization. Patient seen and evaluated in the recreation room. Patient resting comfortably. No reported nursing events. Patient denies pain. Hospitalist Physical - Constitutional Vitals: Temp Pulse Resp BP Pulse Ox 98.3 F 71 18 139/72 97 09/18/20 13:47 09/18/20 13:47 09/18/20 13:47 09/18/20 13:46 09/18/20 13:47 General appearance: Present: no acute distress, well-nourished - EENT Eyes: Present: PERRL, EOM intact - Neck Neck: Present: supple - Respiratory Respiratory effort: normal Respiratory: bilateral: CTA - Cardiovascular Rhythm: regular Heart Sounds: Present: S1 & S2 - Extremities Extremities: no ischemia Peripheral Pulses: within normal limits - Abdominal General gastrointestinal: soft, non-tender, non-distended - Integumentary Integumentary: Present: clear, dry - Psychiatric Psychiatric: cooperative - Neurologic Neurologic: CNII-XII intact Results - Labs CBC & Chem 7: 09/09/20 22:35 09/09/20 22:35 Labs: Laboratory Last Values WBC 3.4 K/mm3 (4.5-11.0) L 09/09/20 22:35 RBC 4.16 M/mm3 (3.65-5.03) 09/09/20 22:35 Hgb 11.6 gm/dl (10.1-14.3) 09/09/20 22:35 Hct 35.0 % (30.3-42.9) 09/09/20 22:35 MCV 84 fl (79-97) 09/09/20 22:35 MCH 28 pg (28-32) 09/09/20 22:35 MCHC 33 % (30-34) 09/09/20 22:35 RDW 14.6 % (13.2-15.2) 09/09/20 22:35 Plt Count 146 K/mm3 (140-440) 09/09/20 22:35 Lymph % (Auto) 38.5 % (13.4-35.0) H 09/09/20 22:35 [place] % (Auto) 11.0 % (0.0-7.3) H 09/09/20 22:35 Eos % (Auto) 9.3 % (0.0-4.3) H 09/09/20 22:35 Baso % (Auto) 1.0 % (0.0-1.8) 09/09/20 22:35 Lymph # (Auto) 1.3 K/mm3 (1.2-5.4) 09/09/20 22:35 [place] # (Auto) 0.4 K/mm3 (0.0-0.8) 09/09/20 22:35 Eos # (Auto) 0.3 K/mm3 (0.0-0.4) 09/09/20 22:35 Baso # (Auto) 0.0 K/mm3 (0.0-0.1) 09/09/20 22:35 Seg Neutrophils % 40.2 % (40.0-70.0) 09/09/20 22:35 Seg Neutrophils # 1.4 K/mm3 (1.8-7.7) L 09/09/20 22:35 Sodium 137 mmol/L (137-145) 09/09/20 22:35 Potassium 3.9 mmol/L (3.6-5.0) 09/09/20 22:35 Chloride 101.5 mmol/L (98-107) 09/09/20 22:35 Carbon Dioxide 25 mmol/L (22-30) 09/09/20 22:35 Anion Gap 14 mmol/L 09/09/20 22:35 BUN 17 mg/dL (7-17) 09/09/20 22:35 Creatinine 0.9 mg/dL (0.6-1.2) 09/09/20 22:35 Estimated GFR 59 ml/min 09/09/20 22:35 BUN/Creatinine Ratio 19 % 09/09/20 22:35 Glucose 81 mg/dL (65-100) 09/09/20 22:35 POC Glucose 124 mg/dL (70-105) H 09/09/20 16:11 Hemoglobin A1c 5.4 % (4-6) 09/09/20 22:35 Calcium 9.1 mg/dL (8.4-10.2) 09/09/20 22:35 Total Bilirubin 0.20 mg/dL (0.1-1.2) 09/09/20 22:35 AST 17 units/L (5-40) 09/09/20 22:35 ALT 8 units/L (7-56) 09/09/20 22:35 Alkaline Phosphatase 49 units/L (35-129) 09/09/20 22:35 Total Protein 6.2 g/dL (6.3-8.2) L 09/09/20 22:35 Albumin 3.7 g/dL (3.9-5) L 09/09/20 22:35 Albumin/Globulin Ratio 1.5 % 09/09/20 22:35 Triglycerides 41 mg/dL (2-149) 09/09/20 22:35 Cholesterol 181 mg/dL (50-199) 09/09/20 22:35 LDL Cholesterol Direct 106 mg/dL (50-130) 09/09/20 22:35 HDL Cholesterol 67 mg/dL (40-59) H 09/09/20 22:35 Cholesterol/HDL Ratio 2.70 % 09/09/20 22:35 TSH 3.530 mlU/mL (0.270-4.200) 09/09/20 22:35 King/IV: Voiding Method Toilet Active Medications - Current Medications Current Medications: Generic Name Dose Route Start Last Admin Trade Name Freq PRN Reason Stop Dose Admin Cholecalciferol 1,000 unit 09/10/20 10:00 09/18/20 09:34 Cholecalciferol (Vit D3) 1000 Unit (25 Mcg) Tab PO 1,000 unit QDAY DELFINO Administration Fish Oil 1,000 mg 09/10/20 10:00 09/18/20 09:35 [place]-3 Fatty Acids/Fish Oil 1 Gram Cap PO 1,000 mg DAILY DELFINO Administration Melatonin 5 mg 09/09/20 05:12 Melatonin 5 Mg Tab PO QHS PRN Sleep Multivitamins/Minerals 1 each 09/10/20 10:00 09/18/20 09:35 Multivitamins,Ther W-Minerals Tab PO 1 each DAILY DELFINO Administration Olanzapine 2.5 mg 09/10/20 13:00 09/18/20 09:34 Olanzapine 2.5 Mg Tab PO 2.5 mg QDAY DELFINO Administration Pravastatin Sodium 10 mg 09/10/20 22:00 09/17/20 21:09 Pravastatin 20 Mg Tab PO 10 mg HS DELFINO Administration Sertraline HCl 50 mg 09/12/20 10:00 09/18/20 09:34 Sertraline 50 Mg Tab PO 50 mg QDAY DELFINO Administration Tramadol HCl 50 mg 09/10/20 09:46 09/18/20 09:35 Tramadol 50 Mg Tab PO 50 mg Q6HR PRN Administration PAIN Trazodone HCl 50 mg 09/09/20 22:00 09/17/20 21:08 Trazodone 50 Mg Tab PO 50 mg QHS DELFINO Administration Nutrition/Malnutrition Assess - Dietary Evaluation Nutrition/Malnutrition Findings: Nutrition Notes Start: 09/16/20 08:18 Freq: Status: Active Protocol: Document 09/16/20 08:18 (Rec: 09/16/20 08:23 [id number]) Nutrition Notes Need for Assessment generated from: LOS Initial or Follow up Assessment Current Diagnosis Hyperlipidemia Other Pertinent Diagnosis depression, dementia Current Diet regular Labs/Tests Reviewed Pertinent Medications Reviewed Height 5 ft Weight 61.236 kg [place] Body Weight (kg) 45.45 BMI 26.4 Weight Status Appropriate Subjective/Other Information Screen for LOS. Pt eating 50- 100% of meals. Per tech, pt ate well at breakfast this AM. Burn Absent Trauma Absent GI Symptoms None Current % PO Fair (50-74%) Minimum of two criteria No physical signs of malnutrition #1 Nutrition Diagnosis Inadequate oral intake Etiology advanced age As Evidenced by Signs and Symptoms pt with inconsistent intakes of 50-100% of meals Is patient on ventilator? No Is Patient Ambulatory and/or Out of Bed Yes REE-([place]-St. Jeor-ambulatory/OOB) [ 1246.518 NUTR.MSJOOB] Calculation Used for Recommendations [place]-St Jeor Additional Notes Protein: (1-1.2g/kg) 61-73g Fluid: 1 ml/kcal Nutrition Intervention Change Diet Order: Continue Add Supplement/Snack (indicate name/kcal Ensure Enlive daily /protein ) Provides kCal: 350 Provides Protein (gm) 20 Goal #1 Meet at least 75% of protein and energy needs via PO and ONS intakes Anticipated Discharge Needs: Regular with ONS PRN Follow-Up By: 09/20/20 Additional Comments FU for intakes and ONS tolerance
--- NOTE | 2020-09-18 20:24 | Progress Note ---
Assessment and Plan - Patient Problems (1) Vascular dementia with behavioral disturbance Current Visit: Yes Status: Acute Plan to address problem: Verbal prompting, verbal redirection, benzodiazepine therapy as clinically indicated, supportive care. (2) Cerebral atherosclerosis Current Visit: Yes Status: Acute Plan to address problem: Antiplatelet therapy as clinically indicated, risk factor reduction. (3) Depression Current Visit: Yes Status: Acute Plan to address problem: Continue medical management, (4) Hyperlipidemia Current Visit: Yes Status: Acute Qualifiers: Hyperlipidemia type: mixed hyperlipidemia Qualified Code(s): E78.2 - Mixed hyperlipidemia Plan to address problem: Low-cholesterol diet, statin therapy as clinically indicated. History Interval history: 89 YO Female with Vascular Dementia with Behavioral Disturbance, Cerebral Atherosclerosis, HLD, Depression admitted to [facility] for psychiatric stabilization. Patient seen and evaluated in the recreation room. Patient resting comfortably. No reported nursing events. Patient denies pain. Hospitalist Physical - Constitutional Vitals: Temp Pulse Resp BP Pulse Ox 98.3 F 71 18 139/72 97 09/18/20 13:47 09/18/20 13:47 09/18/20 13:47 09/18/20 13:46 09/18/20 13:47 General appearance: Present: no acute distress, well-nourished - EENT Eyes: Present: PERRL ENT: hearing intact - Neck Neck: Present: supple - Respiratory Respiratory: bilateral: CTA - Cardiovascular Rhythm: regular Heart Sounds: Present: S1 & S2 - Extremities Extremities: no ischemia Peripheral Pulses: within normal limits - Abdominal General gastrointestinal: soft, non-tender, non-distended - Integumentary Integumentary: Present: clear, dry - Psychiatric Psychiatric: cooperative - Neurologic Neurologic: CNII-XII intact Results - Labs CBC & Chem 7: 09/09/20 22:35 09/09/20 22:35 Labs: Laboratory Last Values WBC 3.4 K/mm3 (4.5-11.0) L 09/09/20 22:35 RBC 4.16 M/mm3 (3.65-5.03) 09/09/20 22:35 Hgb 11.6 gm/dl (10.1-14.3) 09/09/20 22:35 Hct 35.0 % (30.3-42.9) 09/09/20 22:35 MCV 84 fl (79-97) 09/09/20 22:35 MCH 28 pg (28-32) 09/09/20 22:35 MCHC 33 % (30-34) 09/09/20 22:35 RDW 14.6 % (13.2-15.2) 09/09/20 22:35 Plt Count 146 K/mm3 (140-440) 09/09/20 22:35 Lymph % (Auto) 38.5 % (13.4-35.0) H 09/09/20 22:35 [place] % (Auto) 11.0 % (0.0-7.3) H 09/09/20 22:35 Eos % (Auto) 9.3 % (0.0-4.3) H 09/09/20 22:35 Baso % (Auto) 1.0 % (0.0-1.8) 09/09/20 22:35 Lymph # (Auto) 1.3 K/mm3 (1.2-5.4) 09/09/20 22:35 [place] # (Auto) 0.4 K/mm3 (0.0-0.8) 09/09/20 22:35 Eos # (Auto) 0.3 K/mm3 (0.0-0.4) 09/09/20 22:35 Baso # (Auto) 0.0 K/mm3 (0.0-0.1) 09/09/20 22:35 Seg Neutrophils % 40.2 % (40.0-70.0) 09/09/20 22:35 Seg Neutrophils # 1.4 K/mm3 (1.8-7.7) L 09/09/20 22:35 Sodium 137 mmol/L (137-145) 09/09/20 22:35 Potassium 3.9 mmol/L (3.6-5.0) 09/09/20 22:35 Chloride 101.5 mmol/L (98-107) 09/09/20 22:35 Carbon Dioxide 25 mmol/L (22-30) 09/09/20 22:35 Anion Gap 14 mmol/L 09/09/20 22:35 BUN 17 mg/dL (7-17) 09/09/20 22:35 Creatinine 0.9 mg/dL (0.6-1.2) 09/09/20 22:35 Estimated GFR 59 ml/min 04/23/21 22:35 BUN/Creatinine Ratio 19 % 09/09/20 22:35 Glucose 81 mg/dL (65-100) 09/09/20 22:35 POC Glucose 124 mg/dL (70-105) H 09/09/20 16:11 Hemoglobin A1c 5.4 % (4-6) 09/09/20 22:35 Calcium 9.1 mg/dL (8.4-10.2) 09/09/20 22:35 Total Bilirubin 0.20 mg/dL (0.1-1.2) 09/09/20 22:35 AST 17 units/L (5-40) 09/09/20 22:35 ALT 8 units/L (7-56) 09/09/20 22:35 Alkaline Phosphatase 49 units/L (35-129) 09/09/20 22:35 Total Protein 6.2 g/dL (6.3-8.2) L 09/09/20 22:35 Albumin 3.7 g/dL (3.9-5) L 09/09/20 22:35 Albumin/Globulin Ratio 1.5 % 09/09/20 22:35 Triglycerides 41 mg/dL (2-149) 09/09/20 22:35 Cholesterol 181 mg/dL (50-199) 09/09/20 22:35 LDL Cholesterol Direct 106 mg/dL (50-130) 09/09/20 22:35 HDL Cholesterol 67 mg/dL (40-59) H 09/09/20 22:35 Cholesterol/HDL Ratio 2.70 % 09/09/20 22:35 TSH 3.530 mlU/mL (0.270-4.200) 09/09/20 22:35 King/IV: Voiding Method Toilet Active Medications - Current Medications Current Medications: Generic Name Dose Route Start Last Admin Trade Name Freq PRN Reason Stop Dose Admin Cholecalciferol 1,000 unit 09/10/20 10:00 09/18/20 09:34 Cholecalciferol (Vit D3) 1000 Unit (25 Mcg) Tab PO 1,000 unit QDAY DELFINO Administration Fish Oil 1,000 mg 09/10/20 10:00 09/18/20 09:35 [place]-3 Fatty Acids/Fish Oil 1 Gram Cap PO 1,000 mg DAILY DELFINO Administration Melatonin 5 mg 09/09/20 05:12 Melatonin 5 Mg Tab PO QHS PRN Sleep Multivitamins/Minerals 1 each 09/10/20 10:00 09/18/20 09:35 Multivitamins,Ther W-Minerals Tab PO 1 each DAILY DELFINO Administration Olanzapine 2.5 mg 09/10/20 13:00 09/18/20 09:34 Olanzapine 2.5 Mg Tab PO 2.5 mg QDAY DELFINO Administration Pravastatin Sodium 10 mg 09/10/20 22:00 09/17/20 21:09 Pravastatin 20 Mg Tab PO 10 mg HS DELFINO Administration Sertraline HCl 50 mg 09/12/20 10:00 09/18/20 09:34 Sertraline 50 Mg Tab PO 50 mg QDAY DELFINO Administration Tramadol HCl 50 mg 09/10/20 09:46 09/18/20 09:35 Tramadol 50 Mg Tab PO 50 mg Q6HR PRN Administration PAIN Trazodone HCl 50 mg 09/09/20 22:00 09/17/20 21:08 Trazodone 50 Mg Tab PO 50 mg QHS DELFINO Administration Nutrition/Malnutrition Assess - Dietary Evaluation Nutrition/Malnutrition Findings: Nutrition Notes Start: 09/16/20 0 8:18 Freq: Status: Active Protocol: Document 09/16/20 08:18 (Rec: 09/16/20 08:23 [id number]) Nutrition Notes Need for Assessment generated from: LOS Initial or Follow up Assessment Current Diagnosis Hyperlipidemia Other Pertinent Diagnosis depression, dementia Current Diet regular Labs/Tests Reviewed Pertinent Medications Reviewed Height 5 ft Weight 61.236 kg [place] Body Weight (kg) 45.45 BMI 26.4 Weight Status Appropriate Subjective/Other Information Screen for LOS. Pt eating 50- 100% of meals. Per tech, pt ate well at breakfast this AM. Burn Absent Trauma Absent GI Symptoms None Current % PO Fair (50-74%) Minimum of two criteria No physical signs of malnutrition #1 Nutrition Diagnosis Inadequate oral intake Etiology advanced age As Evidenced by Signs and Symptoms pt with inconsistent intakes of 50-100% of meals Is patient on ventilator? No Is Patient Ambulatory and/or Out of Bed Yes REE-([place]-St. Jeor-ambulatory/OOB) [ 1246.518 NUTR.MSJOOB] Calculation Used for Recommendations [place]-St Jeor Additional Notes Protein: (1-1.2g/kg) 61-73g Fluid: 1 ml/kcal Nutrition Intervention Change Diet Order: Continue Add Supplement/Snack (indicate name/kcal Ensure Enlive daily /protein ) Provides kCal: 350 Provides Protein (gm) 20 Goal #1 Meet at least 75% of protein and energy needs via PO and ONS intakes Anticipated Discharge Needs: Regular with ONS PRN Follow-Up By: 09/20/20 Additional Comments FU for intakes and ONS tolerance
--- NOTE | 2020-09-18 20:24 | Progress Note ---
Assessment and Plan - Patient Problems (1) Vascular dementia with behavioral disturbance Current Visit: Yes Status: Acute Plan to address problem: Verbal prompting, verbal redirection, benzodiazepine therapy as clinically indicated, supportive care. (2) Cerebral atherosclerosis Current Visit: Yes Status: Acute Plan to address problem: Antiplatelet therapy as clinically indicated, risk factor reduction. (3) Depression Current Visit: Yes Status: Acute Plan to address problem: Continue medical management, (4) Hyperlipidemia Current Visit: Yes Status: Acute Qualifiers: Hyperlipidemia type: mixed hyperlipidemia Qualified Code(s): E78.2 - Mixed hyperlipidemia Plan to address problem: Low-cholesterol diet, statin therapy as clinically indicated. History Interval history: 89 YO Female with Vascular Dementia with Behavioral Disturbance, Cerebral Atherosclerosis, HLD, Depression admitted to [facility] for psychiatric stabilization. Patient seen and evaluated in the recreation room. Patient resting comfortably. No reported nursing events. Patient denies pain. Hospitalist Physical - Constitutional Vitals: Temp Pulse Resp BP Pulse Ox 98.3 F 71 18 139/72 97 09/18/20 13:47 09/18/20 13:47 09/18/20 13:47 09/18/20 13:46 09/18/20 13:47 General appearance: Present: no acute distress, well-nourished - EENT Eyes: Present: PERRL, EOM intact ENT: hearing intact - Neck Neck: Present: supple - Respiratory Respiratory effort: normal Respiratory: bilateral: CTA - Cardiovascular Rhythm: regular Heart Sounds: Present: S1 & S2 - Extremities Extremities: no ischemia Peripheral Pulses: within normal limits - Abdominal General gastrointestinal: soft, non-tender, non-distended - Integumentary Integumentary: Present: clear, dry - Psychiatric Psychiatric: cooperative - Neurologic Neurologic: CNII-XII intact Results - Labs CBC & Chem 7: 09/09/20 22:35 09/09/20 22:35 Labs: Laboratory Last Values WBC 3.4 K/mm3 (4.5-11.0) L 09/09/20 22:35 RBC 4.16 M/mm3 (3.65-5.03) 09/09/20 22:35 Hgb 11.6 gm/dl (10.1-14.3) 09/09/20 22:35 Hct 35.0 % (30.3-42.9) 09/09/20 22:35 MCV 84 fl (79-97) 09/09/20 22:35 MCH 28 pg (28-32) 09/09/20 22:35 MCHC 33 % (30-34) 09/09/20 22:35 RDW 14.6 % (13.2-15.2) 09/09/20 22:35 Plt Count 146 K/mm3 (140-440) 09/09/20 22:35 Lymph % (Auto) 38.5 % (13.4-35.0) H 09/09/20 22:35 [place] % (Auto) 11.0 % (0.0-7.3) H 09/09/20 22:35 Eos % (Auto) 9.3 % (0.0-4.3) H 09/09/20 22:35 Baso % (Auto) 1.0 % (0.0-1.8) 09/09/20 22:35 Lymph # (Auto) 1.3 K/mm3 (1.2-5.4) 09/09/20 22:35 [place] # (Auto) 0.4 K/mm3 (0.0-0.8) 09/09/20 22:35 Eos # (Auto) 0.3 K/mm3 (0.0-0.4) 09/09/20 22:35 Baso # (Auto) 0.0 K/mm3 (0.0-0.1) 09/09/20 22:35 Seg Neutrophils % 40.2 % (40.0-70.0) 09/09/20 22:35 Seg Neutrophils # 1.4 K/mm3 (1.8-7.7) L 09/09/20 22:35 Sodium 137 mmol/L (137-145) 09/09/20 22:35 Potassium 3.9 mmol/L (3.6-5.0) 09/09/20 22:35 Chloride 101.5 mmol/L (98-107) 09/09/20 22:35 Carbon Dioxide 25 mmol/L (22-30) 09/09/20 22:35 Anion Gap 14 mmol/L 09/09/20 22:35 BUN 17 mg/dL (7-17) 09/09/20 22:35 Creatinine 0.9 mg/dL (0.6-1.2) 09/09/20 22:35 Estimated GFR 59 ml/min 09/09/20 22:35 BUN/Creatinine Ratio 19 % 09/09/20 22:35 Glucose 81 mg/dL (65-100) 09/09/20 22:35 POC Glucose 124 mg/dL (70-105) H 09/09/20 16:11 Hemoglobin A1c 5.4 % (4-6) 09/09/20 22:35 Calcium 9.1 mg/dL (8.4-10.2) 09/09/20 22:35 Total Bilirubin 0.20 mg/dL (0.1-1.2) 09/09/20 22:35 AST 17 units/L (5-40) 09/09/20 22:35 ALT 8 units/L (7-56) 09/09/20 22:35 Alkaline Phosphatase 49 units/L (35-129) 09/09/20 22:35 Total Protein 6.2 g/dL (6.3-8.2) L 09/09/20 22:35 Albumin 3.7 g/dL (3.9-5) L 09/09/20 22:35 Albumin/Globulin Ratio 1.5 % 09/09/20 22:35 Triglycerides 41 mg/dL (2-149) 09/09/20 22:35 Cholesterol 181 mg/dL (50-199) 09/09/20 22:35 LDL Cholesterol Direct 106 mg/dL (50-130) 09/09/20 22:35 HDL Cholesterol 67 mg/dL (40-59) H 09/09/20 22:35 Cholesterol/HDL Ratio 2.70 % 09/09/20 22:35 TSH 3.530 mlU/mL (0.270-4.200) 09/09/20 22:35 [place]/IV: Voiding Method Toilet Active Medications - Current Medications Current Medications: Generic Name Dose Route Start Last Admin Trade Name Freq PRN Reason Stop Dose Admin Cholecalciferol 1,000 unit 09/10/20 10:00 09/18/20 09:34 Cholecalciferol (Vit D3) 1000 Unit (25 Mcg) Tab PO 1,000 unit QDAY DELFINO Administration Fish Oil 1,000 mg 09/10/20 10:00 09/18/20 09:35 [place]-3 Fatty Acids/Fish Oil 1 Gram Cap PO 1,000 mg DAILY DELFINO Administration Melatonin 5 mg 09/09/20 05:12 Melatonin 5 Mg Tab PO QHS PRN Sleep Multivitamins/Minerals 1 each 09/10/20 10:00 09/18/20 09:35 Multivitamins,Ther W-Minerals Tab PO 1 each DAILY DELFINO Administration Olanzapine 2.5 mg 09/10/20 13:00 09/18/20 09:34 Olanzapine 2.5 Mg Tab PO 2.5 mg QDAY DELFINO Administration Pravastatin Sodium 10 mg 09/10/20 22:00 09/17/20 21:09 Pravastatin 20 Mg Tab PO 10 mg HS DELFINO Administration Sertraline HCl 50 mg 09/12/20 10:00 09/18/20 09:34 Sertraline 50 Mg Tab PO 50 mg QDAY DELFINO Administration Tramadol HCl 50 mg 09/10/20 09:46 09/18/20 09:35 Tramadol 50 Mg Tab PO 50 mg Q6HR PRN Administration PAIN Trazodone HCl 50 mg 09/09/20 22:00 09/17/20 21:08 Trazodone 50 Mg Tab PO 50 mg QHS DELFINO Administration Nutrition/Malnutrition Assess - Dietary Evaluation Nutrition/Malnutrition Findings: Nutrition Notes Start: 09/16/20 08:18 Freq: Status: Active Protocol: Document 09/16/20 08:18 BALDO (Rec: 09/16/20 08:23 [id number]) Nutrition Notes Need for Assessment generated from: LOS Initial or Follow up Assessment Current Diagnosis Hyperlipidemia Other Pertinent Diagnosis depression, dementia Current Diet regular Labs/Tests Reviewed Pertinent Medications Reviewed Height 5 ft Weight 61.236 kg [place] Body Weight (kg) 45.45 BMI 26.4 Weight Status Appropriate Subjective/Other Information Screen for LOS. Pt eating 50- 100% of meals. Per tech, pt ate well at breakfast this AM. Burn Absent Trauma Absent GI Symptoms None Current % PO Fair (50-74%) Minimum of two criteria No physical signs of malnutrition #1 Nutrition Diagnosis Inadequate oral intake Etiology advanced age As Evidenced by Signs and Symptoms pt with inconsistent intakes of 50-100% of meals Is patient on ventilator? No Is Patient Ambulatory and/or Out of Bed Yes REE-([place]-St. Jeor-ambulatory/OOB) [ 1246.518 NUTR.MSJOOB] Calculation Used for Recommendations [place]-St Jeor Additional Notes Protein: (1-1.2g/kg) 61-73g Fluid: 1 ml/kcal Nutrition Intervention Change Diet Order: Continue Add Supplement/Snack (indicate name/kcal Ensure Enlive daily /protein ) Provides kCal: 350 Provides Protein (gm) 20 Goal #1 Meet at least 75% of protein and energy needs via PO and ONS intakes Anticipated Discharge Needs: Regular with ONS PRN Follow-Up By: 09/20/20 Additional Comments FU for intakes and ONS tolerance
[2020-09-18] MEDS: PRAVASTATIN 20 MG TAB PO SCH (21:21)
[2020-09-18] MEDS: traZODone 50 MG TAB PO SCH (21:22)
--- NOTE | 2020-09-19 07:57 | Progress Note ---
Subjective Date of service: 09/19/20 Principal diagnosis: Dementia with behavioral disturbance Subjective Comment: Per Psych Nurse: Last evening the patient was quiet and presents as sad. She is tearful at times. Her appetite is fair and she was medication compliant. She denies si/hi/ah/vh. She is constantly asking staff when she can go home. She states "I'm trying to do everything you ask." She was reassured we appreciate her cooperation. Overnight she woke early at 0400. She was trying to get into the shower but the water was cold. The tech attempted to assist her and the patient sat on her bed and cried. This marketing copywriter asked her to rest a little longer and we would assist her around 6 am. The patient came back out and again stated her water was cold. She rested after that. Will continue to monitor patient for safety. Psych Progress HPI Patient states that she doesn't sleep well here and asking to go home again today, says here doesn't feel like her home. She states even at her home home, she does not sleep all the way through. Patient states she does not like associating with other people because she does not like being bothered or confused by them and that has worked well for her. She reinforces her desire to go back home. Reason for continuing inpatient treatment: Psychiatrically stable, Patient discharge is pending social work placement, as family determine patient not safe to live by self at this moment. Review of Symptoms: Constitutional: Negative for weight loss ENT: Negative for stridor Respiratory: Negative for cough or hemoptysis All other systems reviewed and are negative MENTAL STATUS EXAMINATION General Appearance and Behavior: Age appropriate, good hygiene, wearing appropriate clothes, uncooperative polite with questioning. Cooperation: cooperative Psychomotor Behavior: Psychomotor normal Mood: sad Affect and affective range: congruent with mood Thought Process: Circumstantial Thought Content: Paranoid and confused Speech: Normal volume, Regular rate and rhythm, Intellectual Functioning: Poor Suicidal Ideation: N/A Homicidal Ideation: N/A Impulse Control: Unimpaired Insight and Judgment: Impaired Memory: memory impaired Attention:Distractible, Orientation: Alert, but disoriented and confused Treatment Plan Continue current medications Patient admitted for inpatient psychiatric evaluation, medication adjustment and close monitoring The patient's behavior, mood, sleep and appetite will be closely monitored. Patient enrolled in individual and group therapeutic sessions and encouraged to attend. Patient provided with a safe and structured environment. Patient's physical health needs will be addressed by the Hospitalist. Hospitalist Consulted Labs including CBC, CMP, Lipid profile and Hemoglobin A1C levels ordered for baseline reference Social Assessment will be completed and the Remnant Sorter will work with patient and family to ensure a suitable and safe disposition Medication adjustment will be made as clinically indicated Usual Wellness Bahai/Preservation: - Start Trazodone 50 mg po QHS & 50 mg po QHS PRN between 10 PM & 2 AM for insomnia - Start Melatonin 5 mg po QHS to promote circadian rhythm - Start [place]-3 for brain health, reduce impulsivity, and as adjunctive treatment for mood disorder, continue upon discharge given overall benefits. - Start B1 prophylaxis with 200 mg po for 5 days The patient agreed on the treatment plan, understood the risk, benefit, alternative treatment, potential consequence of no treatment, and gave informed consent. Initial Certification Inpatient psych services: I certify that the inpatient psychiatric services are required for treatment that could reasonably be expected to improve the patient's condition. Estimated days: 1 Post hospital care: primary care provider, psychiatric provider Medications and Allergies Allergies Allergy/AdvReac Type Severity Reaction Status Date / Time amoxicillin Allergy Unknown Verified 09/09/20 04:57 aspirin Allergy Unknown Verified 09/09/20 04:57 codeine Allergy Unknown Verified 09/09/20 04:57 Sulfa (Sulfonamide Allergy Unknown Verified 09/09/20 04:57 Antibiotics) Home Medications Medication Instructions Recorded Confirmed Last Taken Type Cholecalciferol (Vitamin D3) 1,000 unit PO QDAY 09/09/20 09/09/20 Unknown History [Vitamin D3 2,000 UNIT CAP] Multivitamin [Multiple Vitamins] 1 each PO DAILY 09/09/20 09/09/20 Unknown History [place]-3 Fatty Acids/Fish Oil [Cvs 1 each PO DAILY 09/09/20 09/09/20 Unknown History Fish Oil 1,200 mg Softgel] Simvastatin 10 mg PO HS 09/09/20 09/09/20 Unknown History traMADoL [Ultram] 50 mg PO Q6HR PRN 09/09/20 09/09/20 Unknown History Active Meds: Active Medications Cholecalciferol (Cholecalciferol (Vit D3) 1000 Unit (25 Mcg) Tab) 1,000 unit PO QDAY DELFINO Last Admin: 09/18/20 09:34 Dose: 1,000 unit Documented by: Fish Oil ([place]-3 Fatty Acids/Fish Oil 1 Gram Cap) 1,000 mg PO DAILY [facility] Last Admin: 09/18/20 09:35 Dose: 1,000 mg Documented by: Melatonin (Melatonin 5 Mg Tab) 5 mg PO QHS PRN PRN Reason: Sleep Multivitamins/Minerals (Multivitamins,Ther W-Minerals Tab) 1 each PO DAILY [facility] Last Admin: 09/18/20 09:35 Dose: 1 each Documented by: Olanzapine (Olanzapine 2.5 Mg Tab) 2.5 mg PO QDAY [facility] Last Admin: 09/18/20 09:34 Dose: 2.5 mg Documented by: Pravastatin Sodium (Pravastatin 20 Mg Tab) 10 mg PO [facility] Last Admin: 09/18/20 21:21 Dose: 10 mg Documented by: Sertraline HCl (Sertraline 50 Mg Tab) 50 mg PO QDAY [facility] Last Admin: 09/18/20 09:34 Dose: 50 mg Documented by: Tramadol HCl (Tramadol 50 Mg Tab) 50 mg PO Q6HR PRN PRN Reason: PAIN Last Admin: 09/18/20 09:35 Dose: 50 mg Documented by: Trazodone HCl (Trazodone 50 Mg Tab) 50 mg PO QHS [facility] Last Admin: 09/18/20 21:22 Dose: 50 mg Documented by: Results - Results Labs/Vitals: Laboratory Last Values WBC 3.4 K/mm3 (4.5-11.0) L 09/09/20 22:35 RBC 4.16 M/mm3 (3.65-5.03) 09/09/20 22:35 Hgb 11.6 gm/dl (10.1-14.3) 09/09/20 22:35 Hct 35.0 % (30.3-42.9) 09/09/20 22:35 MCV 84 fl (79-97) 09/09/20 22:35 MCH 28 pg (28-32) 09/09/20 22:35 MCHC 33 % (30-34) 09/09/20 22:35 RDW 14.6 % (13.2-15.2) 09/09/20 22:35 Plt Count 146 K/mm3 (140-440) 09/09/20 22:35 Lymph % (Auto) 38.5 % (13.4-35.0) H 09/09/20 22:35 [place] % (Auto) 11.0 % (0.0-7.3) H 09/09/20 22:35 Eos % (Auto) 9.3 % (0.0-4.3) H 09/09/20 22:35 Baso % (Auto) 1.0 % (0.0-1.8) 09/09/20 22:35 Lymph # (Auto) 1.3 K/mm3 (1.2-5.4) 09/09/20 22:35 [place] # (Auto) 0.4 K/mm3 (0.0-0.8) 09/09/20 22:35 Eos # (Auto) 0.3 K/mm3 (0.0-0.4) 09/09/20 22:35 Baso # (Auto) 0.0 K/mm3 (0.0-0.1) 09/09/20 22:35 Seg Neutrophils % 40.2 % (40.0-70.0) 09/09/20 22:35 Seg Neutrophils # 1.4 K/mm3 (1.8-7.7) L 09/09/20 22:35 Sodium 137 mmol/L (137-145) 09/09/20 22:35 Potassium 3.9 mmol/L (3.6-5.0) 09/09/20 22:35 Chloride 101.5 mmol/L (98-107) 09/09/20 22:35 Carbon Dioxide 25 mmol/L (22-30) 09/09/20 22:35 Anion Gap 14 mmol/L 09/09/20 22:35 BUN 17 mg/dL (7-17) 09/09/20 22:35 Creatinine 0.9 mg/dL (0.6-1.2) 09/09/20 22:35 Estimated GFR 59 ml/min 09/09/20 22:35 BUN/Creatinine Ratio 19 % 09/09/20 22:35 Glucose 81 mg/dL (65-100) 09/09/20 22:35 POC Glucose 124 mg/dL (70-105) H 09/09/20 16:11 Hemoglobin A1c 5.4 % (4-6) 09/09/20 22:35 Calcium 9.1 mg/dL (8.4-10.2) 09/09/20 22:35 Total Bilirubin 0.20 mg/dL (0.1-1.2) 09/09/20 22:35 AST 17 units/L (5-40) 09/09/20 22:35 ALT 8 units/L (7-56) 09/09/20 22:35 Alkaline Phosphatase 49 units/L (35-129) 09/09/20 22:35 Total Protein 6.2 g/dL (6.3-8.2) L 09/09/20 22:35 Albumin 3.7 g/dL (3.9-5) L 09/09/20 22:35 Albumin/Globulin Ratio 1.5 % 09/09/20 22:35 Triglycerides 41 mg/dL (2-149) 09/09/20 22:35 Cholesterol 181 mg/dL (50-199) 09/09/20 22:35 LDL Cholesterol Direct 106 mg/dL (50-130) 09/09/20 22:35 HDL Cholesterol 67 mg/dL (40-59) H 09/09/20 22:35 Cholesterol/HDL Ratio 2.70 % 09/09/20 22:35 TSH 3.530 mlU/mL (0.270-4.200) 09/09/20 22:35 Last Vital Signs Temp 98.4 F 09/18/20 19:29 Pulse 72 09/18/20 19:29 Resp 18 09/18/20 19:29 BP 135/75 09/18/20 19:29 Pulse Ox 98 09/18/20 19:29
[2020-09-19] MEDS: SERTRALINE 50 MG TAB PO SCH (09:55)
[2020-09-19] MEDS: CHOLECALCIFEROL (VIT D3) 1000 UNIT (25 mcg) TAB PO SCH (09:55)
[2020-09-19] MEDS: MULTIVITAMINS,THER W-MINERALS TAB PO SCH (09:55)
[2020-09-19] MEDS: OMEGA-3 FATTY ACIDS/FISH OIL 1 GRAM CAP PO SCH (09:55)
--- NOTE | 2020-09-19 19:56 | Progress Note ---
Assessment and Plan - Patient Problems (1) Vascular dementia with behavioral disturbance Current Visit: Yes Status: Acute Plan to address problem: Verbal prompting, verbal redirection, benzodiazepine therapy as clinically indicated, supportive care. (2) Cerebral atherosclerosis Current Visit: Yes Status: Acute Plan to address problem: Antiplatelet therapy as clinically indicated, risk factor reduction. (3) Depression Current Visit: Yes Status: Acute Plan to address problem: Continue medical management, (4) Hyperlipidemia Current Visit: Yes Status: Acute Qualifiers: Hyperlipidemia type: mixed hyperlipidemia Qualified Code(s): E78.2 - Mixed hyperlipidemia Plan to address problem: Low-cholesterol diet, statin therapy as clinically indicated. History Interval history: 89 YO Female with Vascular Dementia with Behavioral Disturbance, Cerebral Atherosclerosis, HLD, Depression admitted to [facility] for psychiatric stabilization. Patient seen and evaluated in the recreation room. Patient resting comfortably. No reported nursing events. Patient denies pain. Hospitalist Physical - Constitutional Vitals: Temp Pulse Resp BP Pulse Ox 98.1 F 77 18 159/83 97 09/19/20 08:42 09/19/20 08:42 09/19/20 08:42 09/19/20 08:42 09/19/20 08:42 General appearance: Present: no acute distress, well-nourished - EENT Eyes: Present: PERRL, EOM intact ENT: hearing intact - Neck Neck: Present: supple - Respiratory Respiratory: bilateral: CTA - Cardiovascular Rhythm: regular Heart Sounds: Present: S1 & S2 - Extremities Extremities: no ischemia Peripheral Pulses: within normal limits - Abdominal General gastrointestinal: soft, non-tender, non-distended - Integumentary Integumentary: Present: clear, dry - Psychiatric Psychiatric: cooperative - Neurologic Neurologic: CNII-XII intact Results - Labs CBC & Chem 7: 09/09/20 22:35 09/09/20 22:35 Labs: Laboratory Last Values WBC 3.4 K/mm3 (4.5-11.0) L 09/09/20 22:35 RBC 4.16 M/mm3 (3.65-5.03) 09/09/20 22:35 Hgb 11.6 gm/dl (10.1-14.3) 09/09/20 22:35 Hct 35.0 % (30.3-42.9) 09/09/20 22:35 MCV 84 fl (79-97) 09/09/20 22:35 MCH 28 pg (28-32) 09/09/20 22:35 MCHC 33 % (30-34) 09/09/20 22:35 RDW 14.6 % (13.2-15.2) 09/09/20 22:35 Plt Count 146 K/mm3 (140-440) 09/09/20 22:35 Lymph % (Auto) 38.5 % (13.4-35.0) H 09/09/20 22:35 [place] % (Auto) 11.0 % (0.0-7.3) H 09/09/20 22:35 Eos % (Auto) 9.3 % (0.0-4.3) H 09/09/20 22:35 Baso % (Auto) 1.0 % (0.0-1.8) 09/09/20 22:35 Lymph # (Auto) 1.3 K/mm3 (1.2-5.4) 09/09/20 22:35 [place] # (Auto) 0.4 K/mm3 (0.0-0.8) 09/09/20 22:35 Eos # (Auto) 0.3 K/mm3 (0.0-0.4) 09/09/20 22:35 Baso # (Auto) 0.0 K/mm3 (0.0-0.1) 09/09/20 22:35 Seg Neutrophils % 40.2 % (40.0-70.0) 09/09/20 22:35 Seg Neutrophils # 1.4 K/mm3 (1.8-7.7) L 09/09/20 22:35 Sodium 137 mmol/L (137-145) 09/09/20 22:35 Potassium 3.9 mmol/L (3.6-5.0) 09/09/20 22:35 Chloride 101.5 mmol/L (98-107) 09/09/20 22:35 Carbon Dioxide 25 mmol/L (22-30) 09/09/20 22:35 Anion Gap 14 mmol/L 09/09/20 22:35 BUN 17 mg/dL (7-17) 09/09/20 22:35 Creatinine 0.9 mg/dL (0.6-1.2) 09/09/20 22:35 Estimated GFR 59 ml/min 09/09/20 22:35 BUN/Creatinine Ratio 19 % 09/09/20 22:35 Glucose 81 mg/dL (65-100) 09/09/20 22:35 POC Glucose 124 mg/dL (70-105) H 09/09/20 16:11 Hemoglobin A1c 5.4 % (4-6) 09/09/20 22:35 Calcium 9.1 mg/dL (8.4-10.2) 09/09/20 22:35 Total Bilirubin 0.20 mg/dL (0.1-1.2) 09/09/20 22:35 AST 17 units/L (5-40) 09/09/20 22:35 ALT 8 units/L (7-56) 09/09/20 22:35 Alkaline Phosphatase 49 units/L (35-129) 09/09/20 22:35 Total Protein 6.2 g/dL (6.3-8.2) L 09/09/20 22:35 Albumin 3.7 g/dL (3.9-5) L 09/09/20 22:35 Albumin/Globulin Ratio 1.5 % 09/09/20 22:35 Triglycerides 41 mg/dL (2-149) 09/09/20 22:35 Cholesterol 181 mg/dL (50-199) 09/09/20 22:35 LDL Cholesterol Direct 106 mg/dL (50-130) 09/09/20 22:35 HDL Cholesterol 67 mg/dL (40-59) H 09/09/20 22:35 Cholesterol/HDL Ratio 2.70 % 09/09/20 22:35 TSH 3.530 mlU/mL (0.270-4.200) 09/09/20 22:35 [place]/IV: Voiding Method Toilet Active Medications - Current Medications Current Medications: Generic Name Dose Route Start Last Admin Trade Name Freq PRN Reason Stop Dose Admin Cholecalciferol 1,000 unit 09/10/20 10:00 09/19/20 09:55 Cholecalciferol (Vit D3) 1000 Unit (25 Mcg) Tab PO 1,000 unit QDAY DELFINO Administration Fish Oil 1,000 mg 09/10/20 10:00 09/19/20 09:55 [place]-3 Fatty Acids/Fish Oil 1 Gram Cap PO 1,000 mg DAILY DELFINO Administration Melatonin 5 mg 09/09/20 05:12 Melatonin 5 Mg Tab PO QHS PRN Sleep Multivitamins/Minerals 1 each 09/10/20 10:00 09/19/20 09:55 Multivitamins,Ther W-Minerals Tab PO 1 each DAILY DELFINO Administration Olanzapine 2.5 mg 09/10/20 13:00 09/19/20 09:55 Olanzapine 2.5 Mg Tab PO 2.5 mg QDAY DELFINO Administration Pravastatin Sodium 10 mg 09/10/20 22:00 09/18/20 21:21 Pravastatin 20 Mg Tab PO 10 mg HS DELFINO Administration Sertraline HCl 50 mg 09/12/20 10:00 09/19/20 09:55 Sertraline 50 Mg Tab PO 50 mg QDAY DELFINO Administration Tramadol HCl 50 mg 09/10/20 09:46 09/18/20 09:35 Tramadol 50 Mg Tab PO 50 mg Q6HR PRN Administration PAIN Trazodone HCl 50 mg 09/09/20 22:00 09/18/20 21:22 Trazodone 50 Mg Tab PO 50 mg QHS DELFINO Administration Nutrition/Malnutrition Assess - Dietary Evaluation Nutrition/Malnutrition Findings: Nutrition Notes Start: 09/16/20 08:18 Freq: Status: Active Protocol: Document 09/16/20 08:18 (Rec: 09/16/20 08:23 [email or web address]) Nutrition Notes Need for Assessment generated from: LOS Initial or Follow up Assessment Current Diagnosis Hyperlipidemia Other Pertinent Diagnosis depression, dementia Current Diet regular Labs/Tests Reviewed Pertinent Medications Reviewed Height 5 ft Weight 61.236 kg [place] Body Weight (kg) 45.45 BMI 26.4 Weight Status Appropriate Subjective/Other Information Screen for LOS. Pt eating 50- 100% of meals. Per tech, pt ate well at breakfast this AM. Burn Absent Trauma Absent GI Symptoms None Current % PO Fair (50-74%) Minimum of two criteria No physical signs of malnutrition #1 Nutrition Diagnosis Inadequate oral intake Etiology advanced age As Evidenced by Signs and Symptoms pt with inconsistent intakes of 50-100% of meals Is patient on ventilator? No Is Patient Ambulatory and/or Out of Bed Yes REE-([place]-St. Jeor-ambulatory/OOB) [ 1246.518 [id number]] Calculation Used for Recommendations [place] Jeor Additional Notes Protein: (1-1.2g/kg) 61-73g Fluid: 1 ml/kcal Nutrition Intervention Change Diet Order: Continue Add Supplement/Snack (indicate name/kcal Ensure Enlive daily /protein ) Provides kCal: 350 Provides Protein (gm) 20 Goal #1 Meet at least 75% of protein and energy needs via PO and ONS intakes Anticipated Discharge Needs: Regular with ONS PRN Follow-Up By: 09/20/20 Additional Comments FU for intakes and ONS tolerance
[2020-09-19] MEDS: PRAVASTATIN 20 MG TAB PO SCH (21:08)
[2020-09-19] MEDS: traZODone 50 MG TAB PO SCH (21:08)
--- NOTE | 2020-09-20 07:52 | Progress Note ---
Subjective Date of service: 09/20/20 Principal diagnosis: Dementia with behavioral disturbance Subjective Comment: Per Psych Nurse: pt spent last evening in activity room interacting with peer, not tearful during the hours of evening, medication compliant, good appetite, no complaint voiced, no distress noted, slept all night, will continue to monitor for safety. Psych Progress HPI Patient in the room eating, patient asked when she will be discharged and I informed patient most likely tomorrow due to family having transportation issues to pick her up. Patient pushed food away, started crying and asking to go home today. Reason for continuing inpatient treatment: Psychiatrically stable, Patient discharge is pending social work placement, as family determine patient not safe to live by self at this moment. Review of Symptoms: Constitutional: Negative for weight loss ENT: Negative for stridor Respiratory: Negative for cough or hemoptysis All other systems reviewed and are negative MENTAL STATUS EXAMINATION General Appearance and Behavior: Age appropriate, good hygiene, wearing appropriate clothes, uncooperative polite with questioning. Cooperation: cooperative Psychomotor Behavior: Psychomotor normal Mood: sad Affect and affective range: congruent with mood Thought Process: Circumstantial Thought Content: Paranoid and confused Speech: Normal volume, Regular rate and rhythm, Intellectual Functioning: Poor Suicidal Ideation: N/A Homicidal Ideation: N/A Impulse Control: Unimpaired Insight and Judgment: Impaired Memory: memory impaired Attention:Distractible, Orientation: Alert, but disoriented and confused Treatment Plan Continue current medications Patient admitted for inpatient psychiatric evaluation, medication adjustment and close monitoring The patient's behavior, mood, sleep and appetite will be closely monitored. Patient enrolled in individual and group therapeutic sessions and encouraged to attend. Patient provided with a safe and structured environment. Patient's physical health needs will be addressed by the Hospitalist. Hospitalist Consulted Labs including CBC, CMP, Lipid profile and Hemoglobin A1C levels ordered for baseline reference Social Assessment will be completed and the Etcher Hand will work with patient and family to ensure a suitable and safe disposition Medication adjustment will be made as clinically indicated Usual Wellness Jain/Preservation: - Start Trazodone 50 mg po QHS & 50 mg po QHS PRN between 10 PM & 2 AM for insomnia - Start Melatonin 5 mg po QHS to promote circadian rhythm - Start [place]-3 for brain health, reduce impulsivity, and as adjunctive treatment for mood disorder, continue upon discharge given overall benefits. - Start B1 prophylaxis with 200 mg po for 5 days The patient agreed on the treatment plan, understood the risk, benefit, alternative treatment, potential consequence of no treatment, and gave informed consent. Initial Certification Inpatient psych services: I certify that the inpatient psychiatric services are required for treatment that could reasonably be expected to improve the patient's condition. Estimated days: 1 Post hospital care: primary care provider, psychiatric provider Medications and Allergies Allergies Allergy/AdvReac Type Severity Reaction Status Date / Time amoxicillin Allergy Unknown Verified 09/09/20 04:57 aspirin Allergy Unknown Verified 09/09/20 04:57 codeine Allergy Unknown Verified 09/09/20 04:57 Sulfa (Sulfonamide Allergy Unknown Verified 09/09/20 04:57 Antibiotics) Home Medications Medication Instructions Recorded Confirmed Last Taken Type Cholecalciferol (Vitamin D3) 1,000 unit PO QDAY 09/09/20 09/09/20 Unknown History [Vitamin D3 2,000 UNIT CAP] Multivitamin [Multiple Vitamins] 1 each PO DAILY 09/09/20 09/09/20 Unknown History [place]-3 Fatty Acids/Fish Oil [Cvs 1 each PO DAILY 09/09/20 09/09/20 Unknown History Fish Oil 1,200 mg Softgel] Simvastatin 10 mg PO HS 09/09/20 09/09/20 Unknown History traMADoL [Ultram] 50 mg PO Q6HR PRN 09/09/20 09/09/20 Unknown History Active Meds: Active Medications Cholecalciferol (Cholecalciferol (Vit D3) 1000 Unit (25 Mcg) Tab) 1,000 unit PO QDAY [facility] Last Admin: 09/19/20 09:55 Dose: 1,000 unit Documented by: Fish Oil ([place]-3 Fatty Acids/Fish Oil 1 Gram Cap) 1,000 mg PO DAILY [facility] Last Admin: 09/19/20 09:55 Dose: 1,000 mg Documented by: Melatonin (Melatonin 5 Mg Tab) 5 mg PO QHS PRN PRN Reason: Sleep Multivitamins/Minerals (Multivitamins,Ther W-Minerals Tab) 1 each PO DAILY [facility] Last Admin: 09/19/20 09:55 Dose: 1 each Documented by: Olanzapine (Olanzapine 2.5 Mg Tab) 2.5 mg PO QDAY [facility] Last Admin: 09/19/20 09:55 Dose: 2.5 mg Documented by: Pravastatin Sodium (Pravastatin 20 Mg Tab) 10 mg PO [facility] Last Admin: 09/19/20 21:08 Dose: 10 mg Documented by: Sertraline HCl (Sertraline 50 Mg Tab) 50 mg PO QDAY [facility] Last Admin: 09/19/20 09:55 Dose: 50 mg Documented by: Tramadol HCl (Tramadol 50 Mg Tab) 50 mg PO Q6HR PRN PRN Reason: PAIN Last Admin: 09/18/20 09:35 Dose: 50 mg Documented by: Trazodone HCl (Trazodone 50 Mg Tab) 50 mg PO QHS [facility] Last Admin: 09/19/20 21:08 Dose: 50 mg Documented by: Results - Results Labs/Vitals: Laboratory Last Values WBC 3.4 K/mm3 (4.5-11.0) L 09/09/20 22:35 RBC 4.16 M/mm3 (3.65-5.03) 09/09/20 22:35 Hgb 11.6 gm/dl (10.1-14.3) 09/09/20 22:35 Hct 35.0 % (30.3-42.9) 09/09/20 22:35 MCV 84 fl (79-97) 09/09/20 22:35 MCH 28 pg (28-32) 09/09/20 22:35 MCHC 33 % (30-34) 09/09/20 22:35 RDW 14.6 % (13.2-15.2) 09/09/20 22:35 Plt Count 146 K/mm3 (140-440) 09/09/20 22:35 Lymph % (Auto) 38.5 % (13.4-35.0) H 09/09/20 22:35 [place] % (Auto) 11.0 % (0.0-7.3) H 09/09/20 22:35 Eos % (Auto) 9.3 % (0.0-4.3) H 09/09/20 22:35 Baso % (Auto) 1.0 % (0.0-1.8) 09/09/20 22:35 Lymph # (Auto) 1.3 K/mm3 (1.2-5.4) 09/09/20 22:35 [place] # (Auto) 0.4 K/mm3 (0.0-0.8) 09/09/20 22:35 Eos # (Auto) 0.3 K/mm3 (0.0-0.4) 09/09/20 22:35 Baso # (Auto) 0.0 K/mm3 (0.0-0.1) 09/09/20 22:35 Seg Neutrophils % 40.2 % (40.0-70.0) 09/09/20 22:35 Seg Neutrophils # 1.4 K/mm3 (1.8-7.7) L 09/09/20 22:35 Sodium 137 mmol/L (137-145) 09/09/20 22:35 Potassium 3.9 mmol/L (3.6-5.0) 09/09/20 22:35 Chloride 101.5 mmol/L (98-107) 09/09/20 22:35 Carbon Dioxide 25 mmol/L (22-30) 09/09/20 22:35 Anion Gap 14 mmol/L 09/09/20 22:35 BUN 17 mg/dL (7-17) 09/09/20 22:35 Creatinine 0.9 mg/dL (0.6-1.2) 09/09/20 22:35 Estimated GFR 59 ml/min 09/09/20 22:35 BUN/Creatinine Ratio 19 % 09/09/20 22:35 Glucose 81 mg/dL (65-100) 09/09/20 22:35 POC Glucose 124 mg/dL (70-105) H 09/09/20 16:11 Hemoglobin A1c 5.4 % (4-6) 09/09/20 22:35 Calcium 9.1 mg/dL (8.4-10.2) 09/09/20 22:35 Total Bilirubin 0.20 mg/dL (0.1-1.2) 09/09/20 22:35 AST 17 units/L (5-40) 09/09/20 22:35 ALT 8 units/L (7-56) 09/09/20 22:35 Alkaline Phosphatase 49 units/L (35-129) 09/09/20 22:35 Total Protein 6.2 g/dL (6.3-8.2) L 09/09/20 22:35 Albumin 3.7 g/dL (3.9-5) L 09/09/20 22:35 Albumin/Globulin Ratio 1.5 % 09/09/20 22:35 Triglycerides 41 mg/dL (2-149) 09/09/20 22:35 Cholesterol 181 mg/dL (50-199) 09/09/20 22:35 LDL Cholesterol Direct 106 mg/dL (50-130) 09/09/20 22:35 HDL Cholesterol 67 mg/dL (40-59) H 09/09/20 22:35 Cholesterol/HDL Ratio 2.70 % 09/09/20 22:35 TSH 3.530 mlU/mL (0.270-4.200) 09/09/20 22:35 Last Vital Signs Temp 98.9 F 09/19/20 19:25 Pulse 85 09/19/20 19:25 Resp 17 09/19/20 19:25 BP 148/98 09/19/20 19:25 Pulse Ox 98 09/19/20 19:25
[2020-09-20] MEDS: SERTRALINE 50 MG TAB PO SCH (09:48)
[2020-09-20] MEDS: MULTIVITAMINS,THER W-MINERALS TAB PO SCH (09:48)
[2020-09-20] MEDS: OMEGA-3 FATTY ACIDS/FISH OIL 1 GRAM CAP PO SCH (09:48)
[2020-09-20] MEDS: CHOLECALCIFEROL (VIT D3) 1000 UNIT (25 mcg) TAB PO SCH (09:48)
--- NOTE | 2020-09-20 18:43 | Progress Note ---
Assessment and Plan Assessment and plan: 89 YO Female with Vascular Dementia with Behavioral Disturbance, Cerebral Atherosclerosis, HLD, Depression admitted to [facility] for psychiatric stabilization. Patient seen and evaluated in the recreation room. Patient resting comfortably. No reported nursing events. Patient denies pain. Vascular dementia with behavioral disturbance Verbal prompting, verbal redirection, benzodiazepine therapy as clinically indicated, supportive care. Cerebral atherosclerosis Antiplatelet therapy as clinically indicated, risk factor reduction. Depression Continue medical management, Hyperlipidemia Low-cholesterol diet, statin therapy as clinically indicated. Continue current management We will closely monitor the patient and adjust the management as needed Thank you for this consult we will follow the patient along with you as needed basis Plan of care reviewed with the patient and her nurse History Interval history: I have seen and examined the patient in the activity room Patient is desperate to go home crying The nurse told her that her family is coming to get her tomorrow from someone Nurse has no new complaints or concerns about the patient vital signs reviewed Hospitalist Physical - Constitutional Vitals: Temp Pulse Resp BP Pulse Ox 98.9 F 85 17 148/98 98 09/19/20 19:25 09/19/20 19:25 09/19/20 19:25 09/19/20 19:25 09/19/20 19:25 General appearance: Present: no acute distress, well-nourished - EENT Eyes: Present: PERRL, EOM intact - Neck Neck: Present: supple, normal ROM - Respiratory Respiratory effort: normal Respiratory: bilateral: diminished - Cardiovascular Rhythm: regular Heart Sounds: Present: S1 & S2 - Extremities Extremities: no ischemia, No edema - Abdominal General gastrointestinal: soft, non-tender, non-distended, normal bowel sounds - Integumentary Integumentary: Present: clear, warm - Psychiatric Psychiatric: agitated, other (Crying wants to go home) - Neurologic Neurologic: moves all extremities Results - Labs CBC & Chem 7: 09/09/20 22:35 09/09/20 22:35 Labs: Laboratory Last Values WBC 3.4 K/mm3 (4.5-11.0) L 09/09/20 22:35 RBC 4.16 M/mm3 (3.65-5.03) 09/09/20 22:35 Hgb 11.6 gm/dl (10.1-14.3) 09/09/20 22:35 Hct 35.0 % (30.3-42.9) 09/09/20 22:35 MCV 84 fl (79-97) 09/09/20 22:35 MCH 28 pg (28-32) 09/09/20 22:35 MCHC 33 % (30-34) 09/09/20 22:35 RDW 14.6 % (13.2-15.2) 09/09/20 22:35 Plt Count 146 K/mm3 (140-440) 09/09/20 22:35 Lymph % (Auto) 38.5 % (13.4-35.0) H 09/09/20 22:35 [place] % (Auto) 11.0 % (0.0-7.3) H 09/09/20 22:35 Eos % (Auto) 9.3 % (0.0-4.3) H 09/09/20 22:35 Baso % (Auto) 1.0 % (0.0-1.8) 09/09/20 22:35 Lymph # (Auto) 1.3 K/mm3 (1.2-5.4) 09/09/20 22:35 [place] # (Auto) 0.4 K/mm3 (0.0-0.8) 09/09/20 22:35 Eos # (Auto) 0.3 K/mm3 (0.0-0.4) 09/09/20 22:35 Baso # (Auto) 0.0 K/mm3 (0.0-0.1) 09/09/20 22:35 Seg Neutrophils % 40.2 % (40.0-70.0) 09/09/20 22:35 Seg Neutrophils # 1.4 K/mm3 (1.8-7.7) L 09/09/20 22:35 Sodium 137 mmol/L (137-145) 09/09/20 22:35 Potassium 3.9 mmol/L (3.6-5.0) 09/09/20 22:35 Chloride 101.5 mmol/L (98-107) 09/09/20 22:35 Carbon Dioxide 25 mmol/L (22-30) 09/09/20 22:35 Anion Gap 14 mmol/L 09/09/20 22:35 BUN 17 mg/dL (7-17) 09/09/20 22:35 Creatinine 0.9 mg/dL (0.6-1.2) 09/09/20 22:35 Estimated GFR 59 ml/min 09/09/20 22:35 BUN/Creatinine Ratio 19 % 09/09/20 22:35 Glucose 81 mg/dL (65-100) 09/09/20 22:35 POC Glucose 124 mg/dL (70-105) H 09/09/20 16:11 Hemoglobin A1c 5.4 % (4-6) 09/09/20 22:35 Calcium 9.1 mg/dL (8.4-10.2) 09/09/20 22:35 Total Bilirubin 0.20 mg/dL (0.1-1.2) 09/09/20 22:35 AST 17 units/L (5-40) 09/09/20 22:35 ALT 8 units/L (7-56) 09/09/20 22:35 Alkaline Phosphatase 49 units/L (35-129) 09/09/20 22:35 Total Protein 6.2 g/dL (6.3-8.2) L 09/09/20 22:35 Albumin 3.7 g/dL (3.9-5) L 09/09/20 22:35 Albumin/Globulin Ratio 1.5 % 09/09/20 22:35 Triglycerides 41 mg/dL (2-149) 09/09/20 22:35 Cholesterol 181 mg/dL (50-199) 09/09/20 22:35 LDL Cholesterol Direct 106 mg/dL (50-130) 09/09/20 22:35 HDL Cholesterol 67 mg/dL (40-59) H 09/09/20 22:35 Cholesterol/HDL Ratio 2.70 % 09/09/20 22:35 TSH 3.530 mlU/mL (0.270-4.200) 09/09/20 22:35 King/IV: Voiding Method Toilet Active Medications - Current Medications Current Medications: Generic Name Dose Route Start Last Admin Trade Name Freq PRN Reason Stop Dose Admin Cholecalciferol 1,000 unit 09/10/20 10:00 09/20/20 09:48 Cholecalciferol (Vit D3) 1000 Unit (25 Mcg) Tab PO 1,000 unit QDAY DELFINO Administration Fish Oil 1,000 mg 09/10/20 10:00 09/20/20 09:48 [place]-3 Fatty Acids/Fish Oil 1 Gram Cap PO 1,000 mg DAILY DELFINO Administration Melatonin 5 mg 09/09/20 05:12 Melatonin 5 Mg Tab PO QHS PRN Sleep Multivitamins/Minerals 1 each 09/10/20 10:00 09/20/20 09:48 Multivitamins,Ther W-Minerals Tab PO 1 each DAILY DELFINO Administration Olanzapine 2.5 mg 09/10/20 13:00 09/20/20 09:48 Olanzapine 2.5 Mg Tab PO 2.5 mg QDAY DELFINO Administration Pravastatin Sodium 10 mg 09/10/20 22:00 09/19/20 21:08 Pravastatin 20 Mg Tab PO 10 mg HS DELFINO Administration Sertraline HCl 50 mg 09/12/20 10:00 09/20/20 09:48 Sertraline 50 Mg Tab PO 50 mg QDAY DELFINO Administration Tramadol HCl 50 mg 09/10/20 09:46 09/18/20 09:35 Tramadol 50 Mg Tab PO 50 mg Q6HR PRN Administration PAIN Trazodone HCl 50 mg 09/09/20 22:00 09/19/20 21:08 Trazodone 50 Mg Tab PO 50 mg QHS DELFINO Administration Nutrition/Malnutrition Assess - Dietary Evaluation Nutrition/Malnutrition Findings: Nutrition Notes Start: 09/16/20 08:18 Freq: Status: Active Protocol: Document 09/20/20 11:31 CW (Rec: 09/20/20 11:37 CW [id number]) Nutrition Notes Initial or Follow up Reassessment Current Diagnosis Hyperlipidemia Other Pertinent Diagnosis depression, dementia Current Diet regular Labs/Tests No new labs Pertinent Medications Reviewed Height 5 ft Weight 61.236 kg [place] Body Weight (kg) 45.45 BMI 26.4 Weight Status Appropriate Subjective/Other Information F/U for intakes and ONS. Pt eating 75 - 100% of meals for the last several days. Pt also tolerating snacks/supplements well per chart. Percent of energy/protein needs met: 212%/179% Burn Absent Trauma Absent GI Symptoms None Current % PO Fair (50-74%) Minimum of two criteria No physical signs of malnutrition #1 Nutrition Diagnosis Inadequate oral intake As Evidenced by Signs and Symptoms Consistent intake of 75 - 100% of meals + snack provided Diagnosis Progress(for reassessment Improved documentation) Is patient on ventilator? No Is Patient Ambulatory and/or Out of Bed Yes REE-([facility]-ambulatory/OOB) [ [id number] [id number]] Calculation Used for Recommendations [facility] Additional Notes Protein: (1-1.2g/kg) 61-73g Fluid: 1 ml/kcal Nutrition Intervention Change Diet Order: Continue regular diet Add Supplement/Snack (indicate name/kcal d/c /protein ) Goal #1 Meet at least 75% of protein and energy needs via PO and ONS intakes Anticipated Discharge Needs: Regular diet Revisit per MD consult or patient Sign Off request: Additional Comments S/O for stable intakes
[2020-09-20] MEDS: traZODone 50 MG TAB PO SCH (21:36)
[2020-09-20] MEDS: PRAVASTATIN 20 MG TAB PO SCH (21:39)
--- NOTE | 2020-09-21 08:03 | Progress Note ---
Subjective Date of service: 09/21/20 Principal diagnosis: Dementia with behavioral disturbance Subjective Comment: Per Psych Nurse:pt received in dayroom A&Ox4 and calm. Pt denies SI/HI and AVH. Close monitoring continues. Psych Progress HPI Patient seen this AM, reports doing better but states she wants to know why we still keeping her here and not sent her home. Informed patient that discharge plans in progress with family in conversation. Reason for continuing inpatient treatment: Psychiatrically stable, Patient discharge is pending social work placement, as family determine patient not safe to live by self at this moment. Review of Symptoms: Constitutional: Negative for weight loss ENT: Negative for stridor Respiratory: Negative for cough or hemoptysis All other systems reviewed and are negative MENTAL STATUS EXAMINATION General Appearance and Behavior: Age appropriate, good hygiene, wearing appropriate clothes, uncooperative polite with questioning. Cooperation: cooperative Psychomotor Behavior: Psychomotor normal Mood: "i feel better" Affect and affective range: congruent with mood Thought Process: Circumstantial Thought Content: Paranoid and confused Speech: Normal volume, Regular rate and rhythm, Intellectual Functioning: Poor Suicidal Ideation: denies Homicidal Ideation:denies Impulse Control: Unimpaired Insight and Judgment: Impaired Memory: memory impaired Attention: Distractible, Orientation: Alert, but disoriented and confused Treatment Plan Continue current medications Patient admitted for inpatient psychiatric evaluation, medication adjustment and close monitoring The patient's behavior, mood, sleep and appetite will be closely monitored. Patient enrolled in individual and group therapeutic sessions and encouraged to attend. Patient provided with a safe and structured environment. Patient's physical health needs will be addressed by the Hospitalist. Hospitalist Consulted Labs including CBC, CMP, Lipid profile and Hemoglobin A1C levels ordered for baseline reference Social Assessment will be completed and the Jeweler Apprentice will work with patient and family to ensure a suitable and safe disposition Medication adjustment will be made as clinically indicated Usual Wellness Hindu/Preservation: - Start Trazodone 50 mg po QHS & 50 mg po QHS PRN between 10 PM & 2 AM for insomnia - Start Melatonin 5 mg po QHS to promote circadian rhythm - Start Atco-3 for brain health, reduce impulsivity, and as adjunctive treatment for mood disorder, continue upon discharge given overall benefits. - Start B1 prophylaxis with 200 mg po for 5 days The patient agreed on the treatment plan, understood the risk, benefit, alternative treatment, potential consequence of no treatment, and gave informed consent. Initial Certification Inpatient psych services: I certify that the inpatient psychiatric services are required for treatment that could reasonably be expected to improve the patient's condition. Estimated days: 1 Post hospital care: primary care provider, psychiatric provider Medications and Allergies Allergies Allergy/AdvReac Type Severity Reaction Status Date / Time amoxicillin Allergy Unknown Verified 09/09/20 04:57 aspirin Allergy Unknown Verified 09/09/20 04:57 codeine Allergy Unknown Verified 09/09/20 04:57 Sulfa (Sulfonamide Allergy Unknown Verified 09/09/20 04:57 Antibiotics) Home Medications Medication Instructions Recorded Confirmed Last Taken Type Cholecalciferol (Vitamin D3) 1,000 unit PO QDAY 09/09/20 09/09/20 Unknown History [Vitamin D3 2,000 UNIT CAP] Multivitamin [Multiple Vitamins] 1 each PO DAILY 09/09/20 09/09/20 Unknown History Atco-3 Fatty Acids/Fish Oil [Cvs 1 each PO DAILY 09/09/20 09/09/20 Unknown History Fish Oil 1,200 mg Softgel] Simvastatin 10 mg PO 09/09/20 09/09/20 Unknown History traMADoL [Ultram] 50 mg PO Q6HR PRN 09/09/20 09/09/20 Unknown History Active Meds: Active Medications Cholecalciferol (Cholecalciferol (Vit D3) 1000 Unit (25 Mcg) Tab) 1,000 unit PO QDAY [facility] Last Admin: 09/20/20 09:48 Dose: 1,000 unit Documented by: Fish Oil (Atco-3 Fatty Acids/Fish Oil 1 Gram Cap) 1,000 mg PO DAILY [facility] Last Admin: 09/20/20 09:48 Dose: 1,000 mg Documented by: Melatonin (Melatonin 5 Mg Tab) 5 mg PO QHS PRN PRN Reason: Sleep Multivitamins/Minerals (Multivitamins,Ther W-Minerals Tab) 1 each PO DAILY [facility] Last Admin: 09/20/20 09:48 Dose: 1 each Documented by: Olanzapine (Olanzapine 2.5 Mg Tab) 2.5 mg PO QDAY [facility] Last Admin: 09/20/20 09:48 Dose: 2.5 mg Documented by: Pravastatin Sodium (Pravastatin 20 Mg Tab) [address] [facility] Last Admin: 09/20/20 21:39 Dose: 10 mg Documented by: Sertraline HCl (Sertraline 50 Mg Tab) 50 mg PO QDAY [facility] Last Admin: 09/20/20 09:48 Dose: 50 mg Documented by: Tramadol HCl (Tramadol 50 Mg Tab) 50 mg PO Q6HR PRN PRN Reason: PAIN Last Admin: 09/18/20 09:35 Dose: 50 mg Documented by: Trazodone HCl (Trazodone 50 Mg Tab) 50 mg PO QHS [facility] Last Admin: 09/20/20 21:36 Dose: 50 mg Documented by: Results - Results Labs/Vitals: Laboratory Last Values WBC 3.4 K/mm3 (4.5-11.0) L 09/09/20 22:35 RBC 4.16 M/mm3 (3.65-5.03) 09/09/20 22:35 Hgb 11.6 gm/dl (10.1-14.3) 09/09/20 22:35 Hct 35.0 % (30.3-42.9) 09/09/20 22:35 MCV 84 fl (79-97) 09/09/20 22:35 MCH 28 pg (28-32) 09/09/20 22:35 MCHC 33 % (30-34) 09/09/20 22:35 RDW 14.6 % (13.2-15.2) 09/09/20 22:35 Plt Count 146 K/mm3 (140-440) 09/09/20 22:35 Lymph % (Auto) 38.5 % (13.4-35.0) H 09/09/20 22:35 [place] % (Auto) 11.0 % (0.0-7.3) H 09/09/20 22:35 Eos % (Auto) 9.3 % (0.0-4.3) H 09/09/20 22:35 Baso % (Auto) 1.0 % (0.0-1.8) 09/09/20 22:35 Lymph # (Auto) 1.3 K/mm3 (1.2-5.4) 09/09/20 22:35 [place] # (Auto) 0.4 K/mm3 (0.0-0.8) 09/09/20 22:35 Eos # (Auto) 0.3 K/mm3 (0.0-0.4) 09/09/20 22:35 Baso # (Auto) 0.0 K/mm3 (0.0-0.1) 09/09/20 22:35 Seg Neutrophils % 40.2 % (40.0-70.0) 09/09/20 22:35 Seg Neutrophils # 1.4 K/mm3 (1.8-7.7) L 09/09/20 22:35 Sodium 137 mmol/L (137-145) 09/09/20 22:35 Potassium 3.9 mmol/L (3.6-5.0) 09/09/20 22:35 Chloride 101.5 mmol/L (98-107) 09/09/20 22:35 Carbon Dioxide 25 mmol/L (22-30) 09/09/20 22:35 Anion Gap 14 mmol/L 09/09/20 22:35 BUN 17 mg/dL (7-17) 09/09/20 22:35 Creatinine 0.9 mg/dL (0.6-1.2) 09/09/20 22:35 Estimated GFR 59 ml/min 09/09/20 22:35 BUN/Creatinine Ratio 19 % 09/09/20 22:35 Glucose 81 mg/dL (65-100) 09/09/20 22:35 POC Glucose 124 mg/dL (70-105) H 09/09/20 16:11 Hemoglobin A1c 5.4 % (4-6) 09/09/20 22:35 Calcium 9.1 mg/dL (8.4-10.2) 09/09/20 22:35 Total Bilirubin 0.20 mg/dL (0.1-1.2) 09/09/20 22:35 AST 17 units/L (5-40) 09/09/20 22:35 ALT 8 units/L (7-56) 09/09/20 22:35 Alkaline Phosphatase 49 units/L (35-129) 09/09/20 22:35 Total Protein 6.2 g/dL (6.3-8.2) L 09/09/20 22:35 Albumin 3.7 g/dL (3.9-5) L 09/09/20 22:35 Albumin/Globulin Ratio 1.5 % 09/09/20 22:35 Triglycerides 41 mg/dL (2-149) 09/09/20 22:35 Cholesterol 181 mg/dL (50-199) 09/09/20 22:35 LDL Cholesterol Direct 106 mg/dL (50-130) 09/09/20 22:35 HDL Cholesterol 67 mg/dL (40-59) H 09/09/20 22:35 Cholesterol/HDL Ratio 2.70 % 09/09/20 22:35 TSH 3.530 mlU/mL (0.270-4.200) 09/09/20 22:35 Last Vital Signs Temp 98.1 F 09/21/20 06:46 Pulse 80 09/21/20 06:46 Resp 18 09/21/20 06:46 BP 160/74 09/21/20 06:46 Pulse Ox 97 09/21/20 06:46
[2020-09-21] MEDS: OMEGA-3 FATTY ACIDS/FISH OIL 1 GRAM CAP PO SCH (09:04)
[2020-09-21] MEDS: MULTIVITAMINS,THER W-MINERALS TAB PO SCH (09:04)
[2020-09-21] MEDS: CHOLECALCIFEROL (VIT D3) 1000 UNIT (25 mcg) TAB PO SCH (09:04)
[2020-09-21] MEDS: SERTRALINE 50 MG TAB PO SCH (09:04)
[2020-09-21] MEDS: traZODone 50 MG TAB PO SCH (21:18)
[2020-09-21] MEDS: PRAVASTATIN 20 MG TAB PO SCH (21:18)
--- NOTE | 2020-09-22 07:54 | Progress Note ---
Subjective Date of service: 09/22/20 Principal diagnosis: Dementia with behavioral disturbance Subjective Comment: Per Psych Nurse:pt spent last evening in activity room watching television, pt is tearful , she wanted to go home, pt reassured, no agitation, medication compliant, consumed 75% of bed time snack, no distress noted, will continue to monitor for safety. Psych Progress HPI Patient appears sad, asking she shouldnt be in a mentally ill facility, states she is fine and needs to go home, patient then says she has talked to me before so why do i say I already know. I informed patient I have been seeing her daily for past 6 days, then patient states she is only "playing with me". Patient expresses desire to be discharged today. Reason for continuing inpatient treatment: Psychiatrically stable, Patient discharge is pending social work placement, as family determine patient not safe to live by self at this moment. Review of Symptoms: Constitutional: Negative for weight loss ENT: Negative for stridor Respiratory: Negative for cough or hemoptysis All other systems reviewed and are negative MENTAL STATUS EXAMINATION General Appearance and Behavior: Age appropriate, good hygiene, wearing appropriate clothes, uncooperative polite with questioning. Cooperation: cooperative Psychomotor Behavior: Psychomotor normal Mood: "good" Affect and affective range: congruent with mood Thought Process: Circumstantial Thought Content: intermittent confusion Speech: Normal volume, Regular rate and rhythm, Intellectual Functioning: fair Suicidal Ideation: denies Homicidal Ideation:denies Impulse Control: Unimpaired Insight and Judgment: Impaired Memory: memory impaired Attention: Distractible, Orientation: Alert, but disoriented and confused Treatment Plan Continue current medications Patient admitted for inpatient psychiatric evaluation, medication adjustment and close monitoring The patient's behavior, mood, sleep and appetite will be closely monitored. Patient enrolled in individual and group therapeutic sessions and encouraged to attend. Patient provided with a safe and structured environment. Patient's physical health needs will be addressed by the Hospitalist. Hospitalist Consulted Labs including CBC, CMP, Lipid profile and Hemoglobin A1C levels ordered for baseline reference Social Assessment will be completed and the Gis Developer will work with patient and family to ensure a suitable and safe disposition Medication adjustment will be made as clinically indicated Usual Wellness Taoist/Preservation: - Start Trazodone 50 mg po QHS & 50 mg po QHS PRN between 10 PM & 2 AM for insomnia - Start Melatonin 5 mg po QHS to promote circadian rhythm - Start [place]-3 for brain health, reduce impulsivity, and as adjunctive treatment for mood disorder, continue upon discharge given overall benefits. - Start B1 prophylaxis with 200 mg po for 5 days The patient agreed on the treatment plan, understood the risk, benefit, alternative treatment, potential consequence of no treatment, and gave informed consent. Initial Certification Inpatient psych services: I certify that the inpatient psychiatric services are required for treatment that could reasonably be expected to improve the patient's condition. Estimated days: 1 Post hospital care: primary care provider, psychiatric provider Medications and Allergies Allergies Allergy/AdvReac Type Severity Reaction Status Date / Time amoxicillin Allergy Unknown Verified 09/09/20 04:57 aspirin Allergy Unknown Verified 09/09/20 04:57 codeine Allergy Unknown Verified 09/09/20 04:57 Sulfa (Sulfonamide Allergy Unknown Verified 09/09/20 04:57 Antibiotics) Home Medications Medication Instructions Recorded Confirmed Last Taken Type Cholecalciferol (Vitamin D3) 1,000 unit PO QDAY 09/09/20 09/09/20 Unknown History [Vitamin D3 2,000 UNIT CAP] Multivitamin [Multiple Vitamins] 1 each PO DAILY 09/09/20 09/09/20 Unknown History Mcalister-3 Fatty Acids/Fish Oil [Cvs 1 each PO DAILY 09/09/20 09/09/20 Unknown History Fish Oil 1,200 mg Softgel] Simvastatin 10 mg PO HS 09/09/20 09/09/20 Unknown History traMADoL [Ultram] 50 mg PO Q6HR PRN 09/09/20 09/09/20 Unknown History Active Meds: Active Medications Cholecalciferol (Cholecalciferol (Vit D3) 1000 Unit (25 Mcg) Tab) 1,000 unit PO QDAY [facility] Last Admin: 09/21/20 09:04 Dose: 1,000 unit Documented by: Fish Oil (Mcalister-3 Fatty Acids/Fish Oil 1 Gram Cap) 1,000 mg PO DAILY [facility] Last Admin: 09/21/20 09:04 Dose: 1,000 mg Documented by: Melatonin (Melatonin 5 Mg Tab) 5 mg PO QHS PRN PRN Reason: Sleep Multivitamins/Minerals (Multivitamins,Ther W-Minerals Tab) 1 each PO DAILY [facility] Last Admin: 09/21/20 09:04 Dose: 1 each Documented by: Olanzapine (Olanzapine 2.5 Mg Tab) 2.5 mg PO QDAY [facility] Last Admin: 09/21/20 09:04 Dose: 2.5 mg Documented by: Pravastatin Sodium (Pravastatin 20 Mg Tab) 10 mg PO HS [facility] Last Admin: 09/21/20 21:18 Dose: 10 mg Documented by: Sertraline HCl (Sertraline 50 Mg Tab) 50 mg PO QDAY [facility] Last Admin: 09/21/20 09:04 Dose: 50 mg Documented by: Tramadol HCl (Tramadol 50 Mg Tab) 50 mg PO Q6HR PRN PRN Reason: PAIN Last Admin: 09/18/20 09:35 Dose: 50 mg Documented by: Trazodone HCl (Trazodone 50 Mg Tab) 50 mg PO QHS [facility] Last Admin: 09/21/20 21:18 Dose: 50 mg Documented by: Results - Results Labs/Vitals: Laboratory Last Values WBC 3.4 K/mm3 (4.5-11.0) L 09/09/20 22:35 RBC 4.16 M/mm3 (3.65-5.03) 09/09/20 22:35 Hgb 11.6 gm/dl (10.1-14.3) 09/09/20 22:35 Hct 35.0 % (30.3-42.9) 09/09/20 22:35 MCV 84 fl (79-97) 09/09/20 22:35 MCH 28 pg (28-32) 09/09/20 22:35 MCHC 33 % (30-34) 09/09/20 22:35 RDW 14.6 % (13.2-15.2) 09/09/20 22:35 Plt Count 146 K/mm3 (140-440) 09/09/20 22:35 Lymph % (Auto) 38.5 % (13.4-35.0) H 09/09/20 22:35 [place] % (Auto) 11.0 % (0.0-7.3) H 09/09/20 22:35 Eos % (Auto) 9.3 % (0.0-4.3) H 09/09/20 22:35 Baso % (Auto) 1.0 % (0.0-1.8) 09/09/20 22:35 Lymph # (Auto) 1.3 K/mm3 (1.2-5.4) 09/09/20 22:35 [place] # (Auto) 0.4 K/mm3 (0.0-0.8) 09/09/20 22:35 Eos # (Auto) 0.3 K/mm3 (0.0-0.4) 09/09/20 22:35 Baso # (Auto) 0.0 K/mm3 (0.0-0.1) 09/09/20 22:35 Seg Neutrophils % 40.2 % (40.0-70.0) 09/09/20 22:35 Seg Neutrophils # 1.4 K/mm3 (1.8-7.7) L 09/09/20 22:35 Sodium 137 mmol/L (137-145) 09/09/20 22:35 Potassium 3.9 mmol/L (3.6-5.0) 09/09/20 22:35 Chloride 101.5 mmol/L (98-107) 09/09/20 22:35 Carbon Dioxide 25 mmol/L (22-30) 09/09/20 22:35 Anion Gap 14 mmol/L 09/09/20 22:35 BUN 17 mg/dL (7-17) 09/09/20 22:35 Creatinine 0.9 mg/dL (0.6-1.2) 09/09/20 22:35 Estimated GFR 59 ml/min 09/09/20 22:35 BUN/Creatinine Ratio 19 % 09/09/20 22:35 Glucose 81 mg/dL (65-100) 09/09/20 22:35 POC Glucose 124 mg/dL (70-105) H 09/09/20 16:11 Hemoglobin A1c 5.4 % (4-6) 09/09/20 22:35 Calcium 9.1 mg/dL (8.4-10.2) 09/09/20 22:35 Total Bilirubin 0.20 mg/dL (0.1-1.2) 09/09/20 22:35 AST 17 units/L (5-40) 09/09/20 22:35 ALT 8 units/L (7-56) 09/09/20 22:35 Alkaline Phosphatase 49 units/L (35-129) 09/09/20 22:35 Total Protein 6.2 g/dL (6.3-8.2) L 09/09/20 22:35 Albumin 3.7 g/dL (3.9-5) L 09/09/20 22:35 Albumin/Globulin Ratio 1.5 % 09/09/20 22:35 Triglycerides 41 mg/dL (2-149) 09/09/20 22:35 Cholesterol 181 mg/dL (50-199) 09/09/20 22:35 LDL Cholesterol Direct 106 mg/dL (50-130) 09/09/20 22:35 HDL Cholesterol 67 mg/dL (40-59) H 09/09/20 22:35 Cholesterol/HDL Ratio 2.70 % 09/09/20 22:35 TSH 3.530 mlU/mL (0.270-4.200) 09/09/20 22:35 Last Vital Signs Temp 98.7 F 09/21/20 20:06 Pulse 79 09/21/20 20:06 Resp 17 09/21/20 20:06 BP 159/80 09/21/20 20:06 Pulse Ox 99 09/21/20 20:06
[2020-09-22] MEDS: OMEGA-3 FATTY ACIDS/FISH OIL 1 GRAM CAP PO SCH (09:11)
[2020-09-22] MEDS: CHOLECALCIFEROL (VIT D3) 1000 UNIT (25 mcg) TAB PO SCH (09:11)
[2020-09-22] MEDS: SERTRALINE 50 MG TAB PO SCH (09:11)
[2020-09-22] MEDS: MULTIVITAMINS,THER W-MINERALS TAB PO SCH (09:13)
[2020-09-22] MEDS: traZODone 50 MG TAB PO SCH (21:38)
[2020-09-22] MEDS: PRAVASTATIN 20 MG TAB PO SCH (21:39)
[2020-09-23 08:39] VITALS: BP 169/91
--- NOTE | 2020-09-23 09:20 | Progress Note ---
Subjective Date of service: 09/23/20 Principal diagnosis: Dementia with behavioral disturbance Subjective Comment: Per Psych Nurse:pt spent last evening in activity room watching television, pt is tearful , she wanted to go home, pt reassured, no agitation, medication compliant, consumed 75% of bed time snack, no distress noted, will continue to monitor for safety. Psych Progress HPI Patient seen this Am, says thesame thing she says towards me, stating she didnt need to be here, again I explained to patient that she is her pending transportation since she lives over 3 hours away. Patient states I am helping white people do their dirty work of keeping black folks aware from their home, I explained to patient thats not whats going. Patient is not tearfil today. Reason for continuing inpatient treatment: Psychiatrically stable, Patient discharge is pending transport back home. Review of Symptoms: Constitutional: Negative for weight loss ENT: Negative for stridor Respiratory: Negative for cough or hemoptysis All other systems reviewed and are negative MENTAL STATUS EXAMINATION General Appearance and Behavior: Age appropriate, good hygiene, wearing appropri ate clothes, uncooperative polite with questioning. Cooperation: cooperative Psychomotor Behavior: Psychomotor normal Mood: "good" Affect and affective range: congruent with mood Thought Process: Circumstantial Thought Content: intermittent confusion Speech: Normal volume, Regular rate and rhythm, Intellectual Functioning: fair Suicidal Ideation: denies Homicidal Ideation:denies Impulse Control: Unimpaired Insight and Judgment: Impaired Memory: memory impaired Attention: Distractible, Orientation: Alert, but disoriented and confused Treatment Plan Continue current medications Patient admitted for inpatient psychiatric evaluation, medication adjustment and close monitoring The patient's behavior, mood, sleep and appetite will be closely monitored. Patient enrolled in individual and group therapeutic sessions and encouraged to attend. Patient provided with a safe and structured environment. Patient's physical health needs will be addressed by the Hospitalist. Hospitalist Consulted Labs including CBC, CMP, Lipid profile and Hemoglobin A1C levels ordered for baseline reference Social Assessment will be completed and the [place] Man will work with patient and family to ensure a suitable and safe disposition Medication adjustment will be made as clinically indicated Usual Wellness Latter Day/Preservation: - Start Trazodone 50 mg po QHS & 50 mg po QHS PRN between 10 PM & 2 AM for insomnia - Start Melatonin 5 mg po QHS to promote circadian rhythm - Start Lamar-3 for brain health, reduce impulsivity, and as adjunctive treatment for mood disorder, continue upon discharge given overall benefits. - Start B1 prophylaxis with 200 mg po for 5 days The patient agreed on the treatment plan, understood the risk, benefit, alternative treatment, potential consequence of no treatment, and gave informed consent. Initial Certification Inpatient psych services: I certify that the inpatient psychiatric services are required for treatment t hat could reasonably be expected to improve the patient's condition. Estimated days: 1 Post hospital care: primary care provider, psychiatric provider Medications and Allergies Allergies Allergy/AdvReac Type Severity Reaction Status Date / Time amoxicillin Allergy Unknown Verified 09/09/20 04:57 aspirin Allergy Unknown Verified 09/09/20 04:57 codeine Allergy Unknown Verified 09/09/20 04:57 Sulfa (Sulfonamide Allergy Unknown Verified 09/09/20 04:57 Antibiotics) Home Medications Medication Instructions Recorded Confirmed Last Taken Type Cholecalciferol (Vitamin D3) 1,000 unit PO QDAY 09/09/20 09/09/20 Unknown History [Vitamin D3 2,000 UNIT CAP] Multivitamin [Multiple Vitamins] 1 each PO DAILY 09/09/20 09/09/20 Unknown History Lamar-3 Fatty Acids/Fish Oil [Cvs 1 each PO DAILY 09/09/20 09/09/20 Unknown History Fish Oil 1,200 mg Softgel] Simvastatin 10 mg PO HS 09/09/20 09/09/20 Unknown History traMADoL [Ultram] 50 mg PO Q6HR PRN 09/09/20 09/09/20 Unknown History Sertraline [Zoloft] 50 mg PO QDAY #30 tablet 09/22/20 Unknown Rx traZODone [Desyrel] 50 mg PO QHS #30 tablet 09/22/20 Unknown Rx Active Meds: Active Medications Cholecalciferol (Cholecalciferol (Vit D3) 1000 Unit (25 Mcg) Tab) 1,000 unit PO QDAY [facility] Last Admin: 09/22/20 09:11 Dose: 1,000 unit Documented by: Fish Oil (Lamar-3 Fatty Acids/Fish Oil 1 Gram Cap) 1,000 mg PO DAILY [facility] Last Admin: 09/22/20 09:11 Dose: 1,000 mg Documented by: Melatonin (Melatonin 5 Mg Tab) 5 mg PO QHS PRN PRN Reason: Sleep Multivitamins/Minerals (Multivitamins,Ther W-Minerals Tab) 1 each PO DAILY [facility] Last Admin: 09/22/20 09:13 Dose: 1 each Documented by: Olanzapine (Olanzapine 2.5 Mg Tab) 2.5 mg PO QDAY [facility] Last Admin: 09/22/20 09:11 Dose: 2.5 mg Documented by: Pravastatin Sodium (Pravastatin 20 Mg Tab) 10 mg PO HS [facility] Last Admin: 09/22/20 21:39 Dose: 10 mg Documented by: Sertraline HCl (Sertraline 50 Mg Tab) 50 mg PO QDAY [facility] Last Admin: 09/22/20 09:11 Dose: 50 mg Documented by: Tramadol HCl (Tramadol 50 Mg Tab) 50 mg PO Q6HR PRN PRN Reason: PAIN Last Admin: 09/18/20 09:35 Dose: 50 mg Documented by: Trazodone HCl (Trazodone 50 Mg Tab) 50 mg PO QHS [facility] Last Admin: 09/22/20 21:38 Dose: 50 mg Documented by: Results - Results Labs/Vitals: Laboratory Last Values WBC 3.4 K/mm3 (4.5-11.0) L 09/09/20 22:35 RBC 4.16 M/mm3 (3.65-5.03) 09/09/20 22:35 Hgb 11.6 gm/dl (10.1-14.3) 09/09/20 22:35 Hct 35.0 % (30.3-42.9) 09/09/20 22:35 MCV 84 fl (79-97) 09/09/20 22:35 MCH 28 pg (28-32) 09/09/20 22:35 MCHC 33 % (30-34) 09/09/20 22:35 RDW 14.6 % (13.2-15.2) 09/09/20 22:35 Plt Count 146 K/mm3 (140-440) 09/09/20 22:35 Lymph % (Auto) 38.5 % (13.4-35.0) H 09/09/20 22:35 [place] % (Auto) 11.0 % (0.0-7.3) H 09/09/20 22:35 Eos % (Auto) 9.3 % (0.0-4.3) H 09/09/20 22:35 Baso % (Auto) 1.0 % (0.0-1.8) 09/09/20 22:35 Lymph # (Auto) 1.3 K/mm3 (1.2-5.4) 09/09/20 22:35 [place] # (Auto) 0.4 K/mm3 (0.0-0.8) 09/09/20 22:35 Eos # (Auto) 0.3 K/mm3 (0.0-0.4) 09/09/20 22:35 Baso # (Auto) 0.0 K/mm3 (0.0-0.1) 09/09/20 22:35 Seg Neutrophils % 40.2 % (40.0-70.0) 09/09/20 22:35 Seg Neutrophils # 1.4 K/mm3 (1.8-7.7) L 09/09/20 22:35 Sodium 137 mmol/L (137-145) 09/09/20 22:35 Potassium 3.9 mmol/L (3.6-5.0) 09/09/20 22:35 Chloride 101.5 mmol/L (98-107) 09/09/20 22:35 Carbon Dioxide 25 mmol/L (22-30) 09/09/20 22:35 Anion Gap 14 mmol/L 09/09/20 22:35 BUN 17 mg/dL (7-17) 09/09/20 22:35 Creatinine 0.9 mg/dL (0.6-1.2) 09/09/20 22:35 Estimated GFR 59 ml/min 09/09/20 22:35 BUN/Creatinine Ratio 19 % 09/09/20 22:35 Glucose 81 mg/dL (65-100) 09/09/20 22:35 POC Glucose 124 mg/dL (70-105) H 09/09/20 16:11 Hemoglobin A1c 5.4 % (4-6) 09/09/20 22:35 Calcium 9.1 mg/dL (8.4-10.2) 09/09/20 22:35 Total Bilirubin 0.20 mg/dL (0.1-1.2) 09/09/20 22:35 AST 17 units/L (5-40) 09/09/20 22:35 ALT 8 units/L (7-56) 09/09/20 22:35 Alkaline Phosphatase 49 units/L (35-129) 09/09/20 22:35 Total Protein 6.2 g/dL (6.3-8.2) L 09/09/20 22:35 Albumin 3.7 g/dL (3.9-5) L 09/09/20 22:35 Albumin/Globulin Ratio 1.5 % 09/09/20 22:35 Triglycerides 41 mg/dL (2-149) 09/09/20 22:35 Cholesterol 181 mg/dL (50-199) 09/09/20 22:35 LDL Cholesterol Direct 106 mg/dL (50-130) 09/09/20 22:35 HDL Cholesterol 67 mg/dL (40-59) H 09/09/20 22:35 Cholesterol/HDL Ratio 2.70 % 09/09/20 22:35 TSH 3.530 mlU/mL (0.270-4.200) 09/09/20 22:35 Last Vital Signs Temp 98.0 F 09/23/20 08:10 Pulse 82 09/23/20 08:10 Resp 22 09/23/20 08:10 BP 169/91 09/23/20 08:10 Pulse Ox 99 09/23/20 08:10
[2020-09-23] MEDS: SERTRALINE 50 MG TAB PO SCH (10:45)
[2020-09-23] MEDS: OMEGA-3 FATTY ACIDS/FISH OIL 1 GRAM CAP PO SCH (10:45)
[2020-09-23] MEDS: CHOLECALCIFEROL (VIT D3) 1000 UNIT (25 mcg) TAB PO SCH (10:45)
[2020-09-23] MEDS: MULTIVITAMINS,THER W-MINERALS TAB PO SCH (10:45)
[2020-09-23] MEDS: PRAVASTATIN 20 MG TAB PO SCH (21:32)
[2020-09-23] MEDS: traZODone 50 MG TAB PO SCH (21:32)
--- NOTE | 2020-09-24 07:57 | Discharge Summary ---
Providers - Providers Date of Admission: 09/09/20 13:41 Date of discharge: 09/24/20 Attending physician: RACHNA ESPINOSA MD 09/09/20 04:59 Consult to Physician [CONS] Routine Comment: Consulting Provider: SERA GALEANA Physician Instructions: Manage pt's existing conditions Reason For Exam: Consultation Primary care physician: COOKER SULFITE Hospitalization Reason for admission: suicidal Admitting Diagnosis: F02.81 - DEMENTIA IN OTH DISEASES CLASSD ELSWHR W BEHAVIORAL DISTURB Condition: Stable Hospital course: The patient was provided inpatient psychiatric treatment with safe and supportive care, medication adjustment, adverse effect monitoring, medical evaluations, medical treatments, assessment and psycho-education. The patient's mood, cognition, behavior, moral support are improved and stabilized. St the time of discharge, the patient had no endangering behavior and no debilitating adverse effects. The patient agreed on potential consequences of no treatment and gave informed consent. Disposition: - TO HOME OR SELFCARE Time spent for discharge: 36 Allergies/Adverse Reactions: Allergies amoxicillin Allergy (Verified 09/09/20 04:57) Unknown aspirin Allergy (Verified 09/09/20 04:57) Unknown codeine Allergy (Verified 09/09/20 04:57) Unknown Sulfa (Sulfonamide Antibiotics) Allergy (Verified 09/09/20 04:57) Unknown Vital Signs: Last Vital Signs Temp 98.0 F 09/23/20 08:10 Pulse 82 09/23/20 08:10 Resp 22 09/23/20 08:10 BP 169/91 09/23/20 08:10 Pulse Ox 99 09/23/20 08:10 Last Lab: Laboratory Last Values WBC 3.4 K/mm3 (4.5-11.0) L 09/09/20 22:35 RBC 4.16 M/mm3 (3.65-5.03) 09/09/20 22:35 Hgb 11.6 gm/dl (10.1-14.3) 09/09/20 22:35 Hct 35.0 % (30.3-42.9) 09/09/20 22:35 MCV 84 fl (79-97) 09/09/20 22:35 MCH 28 pg (28-32) 09/09/20 22:35 MCHC 33 % (30-34) 09/09/20 22:35 RDW 14.6 % (13.2-15.2) 09/09/20 22:35 Plt Count 146 K/mm3 (140-440) 09/09/20 22:35 Lymph % (Auto) 38.5 % (13.4-35.0) H 09/09/20 22:35 [place] % (Auto) 11.0 % (0.0-7.3) H 09/09/20 22:35 Eos % (Auto) 9.3 % (0.0-4.3) H 09/09/20 22:35 Baso % (Auto) 1.0 % (0.0-1.8) 09/09/20 22:35 Lymph # (Auto) 1.3 K/mm3 (1.2-5.4) 09/09/20 22:35 [place] # (Auto) 0.4 K/mm3 (0.0-0.8) 09/09/20 22:35 Eos # (Auto) 0.3 K/mm3 (0.0-0.4) 09/09/20 22:35 Baso # (Auto) 0.0 K/mm3 (0.0-0.1) 09/09/20 22:35 Seg Neutrophils % 40.2 % (40.0-70.0) 09/09/20 22:35 Seg Neutrophils # 1.4 K/mm3 (1.8-7.7) L 09/09/20 22:35 Sodium 137 mmol/L (137-145) 09/09/20 22:35 Potassium 3.9 mmol/L (3.6-5.0) 09/09/20 22:35 Chloride 101.5 mmol/L (98-107) 09/09/20 22:35 Carbon Dioxide 25 mmol/L (22-30) 09/09/20 22:35 Anion Gap 14 mmol/L 09/09/20 22:35 BUN 17 mg/dL (7-17) 09/09/20 22:35 Creatinine 0.9 mg/dL (0.6-1.2) 09/09/20 22:35 Estimated GFR 59 ml/min 09/09/20 22:35 BUN/Creatinine Ratio 19 % 09/09/20 22:35 Glucose 81 mg/dL (65-100) 09/09/20 22:35 POC Glucose 124 mg/dL (70-105) H 09/09/20 16:11 Hemoglobin A1c 5.4 % (4-6) 09/09/20 22:35 Calcium 9.1 mg/dL (8.4-10.2) 09/09/20 22:35 Total Bilirubin 0.20 mg/dL (0.1-1.2) 09/09/20 22:35 AST 17 units/L (5-40) 09/09/20 22:35 ALT 8 units/L (7-56) 09/09/20 22:35 Alkaline Phosphatase 49 units/L (35-129) 09/09/20 22:35 Total Protein 6.2 g/dL (6.3-8.2) L 09/09/20 22:35 Albumin 3.7 g/dL (3.9-5) L 09/09/20 22:35 Albumin/Globulin Ratio 1.5 % 09/09/20 22:35 Triglycerides 41 mg/dL (2-149) 09/09/20 22:35 Cholesterol 181 mg/dL (50-199) 09/09/20 22:35 LDL Cholesterol Direct 106 mg/dL (50-130) 09/09/20 22:35 HDL Cholesterol 67 mg/dL (40-59) H 09/09/20 22:35 Cholesterol/HDL Ratio 2.70 % 09/09/20 22:35 TSH 3.530 mlU/mL (0.270-4.200) 09/09/20 22:35 Core Measure Documentation - Palliative Care Palliative Care/ Comfort Measures: Not Applicable - Core Measures Any of the following diagnoses?: none Exam - Constitutional Vitals: Temp Pulse Resp BP Pulse Ox 98.0 F 82 22 169/91 99 09/23/20 08:10 09/23/20 08:10 09/23/20 08:10 09/23/20 08:10 09/23/20 08:10 General appearance: Present: no acute distress - EENT Eyes: Present: PERRL, EOM intact ENT: hearing intact, clear oral mucosa - Neck Neck: Present: supple, normal ROM - Respiratory Respiratory effort: normal Plan Activity: advance as tolerated Weight Bearing Status: Weight Bear as Tolerated Care Plan Goals: Maintain good and stable mental health Plan of Treatment: The patient should be compliant with medications, not to use drugs, and not to drink alcohol. The patient understands that if suicidal ideas, homicidal ideas or any endangering feeling arise, the patient should seek assistance including, but not limited to crisis hotline, and emergency room. Assessment: Dementia with Behavioral Disturbance Follow up with: PRIMARY CARE,MD [Primary Care Provider] - 7 Days Prescriptions: traZODone [Desyrel] 50 mg PO QHS #30 tablet Melatonin [Melatonin 5MG TAB] 5 mg PO QHS PRN #30 tablet PRN Reason: Sleep Sertraline [Zoloft] 50 mg PO QDAY #30 tablet OLANzapine [ZyPREXA] 2.5 mg PO QDAY #30 tablet
[2020-09-24] MEDS: CHOLECALCIFEROL (VIT D3) 1000 UNIT (25 mcg) TAB PO SCH (09:26)
[2020-09-24] MEDS: OMEGA-3 FATTY ACIDS/FISH OIL 1 GRAM CAP PO SCH (09:26)
[2020-09-24] MEDS: MULTIVITAMINS,THER W-MINERALS TAB PO SCH (09:26)
[2020-09-24] MEDS: SERTRALINE 50 MG TAB PO SCH (09:26)
== END 2020-09-24 11:00 | disposition home or self-care (01) | DRG 884 ==
LOC: 3A 04:36 → UNDOADMIN 04:36 → 5A 13:41
PROVIDERS: ADMIT Psychiatry & Neurology Psychiatry; ATTEND Psychiatry & Neurology Psychiatry
DX: F03.91 Unspecified dementia, unspecified severity, with behavioral disturbance (principal); F32.9 Major depressive disorder, single episode, unspecified; E78.5 Hyperlipidemia, unspecified; I67.2 Cerebral atherosclerosis; Z79.899 Other long term (current) drug therapy; Z88.1 Allergy status to other antibiotic agents; Z88.2 Allergy status to sulfonamides; Z88.5 Allergy status to narcotic agent; Z88.6 Allergy status to analgesic agent
CPT/HCPCS: 36415; 80053; 80061; 82962; 83036; 84443; 85025; G0378